=== PATIENT | male | born 1965 | race Caucasian/White ===

== ENCOUNTER 2018-08-24 22:16 | Observation (INO) | payer OTHER, SELFPAY ==
[2018-08-24 22:17] VITALS: BP 159/94; PULSE 73; RESP 16; TEMP 37.3; O2SAT 98; BMI 50.5
[2018-08-24 22:49] VITALS: BP 156/80; PULSE 91; RESP 18; TEMP 37.6; O2SAT 96
[2018-08-24 23:43] VITALS: PULSE 77; RESP 18; TEMP 37.4; O2SAT 95
[2018-08-25] VITALS (9 sets, daily range): BP systolic 116–159; BP diastolic 56–93; PULSE 71–89; RESP 14–20; TEMP 36.9–37.9; O2SAT 93–98; BMI 49.5
[2018-08-25 00:28] LABS: Absolute Lymphocyte Count 1.94 X10^3/ul (0.83-4.51); Absolute Neutrophil Count 5.2 X10^3/uL (2.0-7.7); Basophil# 0.02 X10^3/uL; Basophil% 0.2 % (0-1); Eosinophil# 0.18 X10^3/uL; Eosinophils% 2.1 % (0-5); Hematocrit 45.3 % (40-54); Hemoglobin 15.6 g/dl (13.0-16.5); Lymphocyte # 1.94 X10^3/ul (4.0); Lymphocyte % 23.1 % (19-41); Mean Corp Hgb Conc 34.4 g/gl (32-36); Mean Corpuscular Hgb 31.3 pg (27.0-32.0); Mean Platelet Vol. 10.4 fl (6.2-12.0); Monocyte# 1.03 X10^3/uL; Monocyte% 12.2 % (0-10); Neutrophil # 5.23 X10^3/uL (2.7-7.7); Neutrophil % 62.3 % (47-70); Platelet Count 222 K/mm3 (150-450); RBC Distribution Width CV 13.3 % (11.6-14.6); RBC Distribution Width SD 43.8 fl (35.1-43.9); Red Blood Count 4.98 M/mm3 (4.6-6.2); White Blood Count 8.4 K/mm3 (4.4-11.0)
[2018-08-25 00:31] LABS: POSITIVE COUNT NO; POSITIVE DIFFERENTIAL NO; POSITIVE MORPHOLOGY NO
[2018-08-25 00:41] LABS: Anion Gap 11 (5-15); BUN 11 mg/dL (7-18); BUN/Creat Ratio 11.4 RATIO (10-20); Calcium,Total 8.5 mg/dL (8.5-10.1); Chloride 102 mmol/L (98-107); Creatinine, Serum 0.96 mg/dL (0.70-1.30); EST Glomerular Filtration Rate 86 mL/min (>60); Est Glom Filt Rate - Afr Amer 104 mL/min (>60); Glucose 114 mg/dL (74-106); Potassium 3.3 mmol/L (3.5-5.1); Sodium Level 137 mmol/L (136-145)
--- NOTE | 2018-08-25 01:07 | ED.DCSUM_ITS ---
- ER Visit Summary Date of Service: 08/25/18 Chief Complaint: Fever and left leg redness History of Present Illness: The patient is a 53 M who presents with fever and left leg redness. He has been running a fever for 3 days. He developed increased pain redness and swelling of his left leg over the last couple of days. He was seen in urgent care. He had a venous duplex which was negative and had blood work. He was told his white blood cell count was normal. He was started on Bactrim. He was advised that if his symptoms worsen or he develop fever he should go to the emergency department. He developed a fever of greater than 101. No chest pain shortness of breath vomiting. Physical Examination: Afebrile vitals unremarkable Moist mucous membranes Heart regular rate and rhythm Lungs clear Patient has erythema and tenderness of the left leg he does have a psoriatic lesion over the dorsum of the left foot he does not have lymphangitic streaking the cellulitis extends from the top of the foot to the level of the knee leg is warm Test Results: CBC BMP unremarkable. Emergency Department Course and Treatment: Patient was given IV Unasyn. Given the fevers and the extent of his cellulitis I did feel he should be admitted for further IV antibiotics. Patient to be discussed with the hospitalist and admitted. Treatment Plan: [] Disposition: Admit Impression: Cellulitis left leg This note was generated with [employer] dictation software. It may contain incorrect words, spelling, and punctuation that were not noted in review of the chart prior to signing ED Disposition - Plan for ED Patient: Chief Complaint: Lower Extremity Injury Referrals: Kareem Redyd MD [Primary Care Provider] -
--- NOTE | 2018-08-25 01:08 | PCM.HP.STD ---
Problem List (1) Cellulitis Status: Acute History of Present Illness Date of Admission: 08/25/18 Chief Complaint: leg pain The patient is a 53 year old M with a significant history of hypertension; obesity; irregular heartbeat who presented with left leg pain that started about 2 days ago. His leg pain was initially mild and he attributed it to working at his basement. He also noticed that he was having chills and fever. His highest fever was 102. As the time progressed his leg pain became more painful and he correlated it with his chills and fever. He went to an urgent care where an ultrasound was done. The ultrasound showed no clot in his leg; and his white blood cells was okay. Patient was given Bactrim at the urgent care; and he was instructed that if he began to have 'streaks' or fever more than 100 he should come to the emergency department. So far he has taken 2 doses of the Bactrim. Patient reported that his home temperature has been consistently above 101 and he was surprised that at emergency department his temperature was below 100. His highest temperature at emergency department was 99.6. Associated with his symptoms is redness and swelling of his left leg. He reports that his left ankle is always bigger than his right ankle but his bilateral legs previously has been the same. Past Medical History Medical History: Medical History (Last Updated 08/25/18 @ 02:07 by Bobby Baker MD) Psoriasis L40.9 High blood pressure I10 Allergies codeine Allergy (Verified 08/24/18 22:23) Nausea/Vom/Diarrhea atorvastatin [From Lipitor] Adverse Reaction (Verified 08/24/18 22:23) Other Home Medications: Ambulatory Orders Medication Instructions Recorded Cholecalciferol (VIT D3) [Vitamin 1,000 unit PO DAILY 08/24/18 D] Ezetimibe [Zetia] 10 mg PO DAILY 08/24/18 Hydrochlorothiazide 12.5 mg PO DAILY 08/24/18 Metoprolol Succinate [Toprol Xl] 75 mg PO DAILY 08/24/18 Multivit-Mins/Iron/Folic/Lycop 1 each PO DAILY 08/24/18 [Centrum Ultra Men's Tablet] Smz/Tmp Ds [Bactrim Ds] 1 tablet PO BID 08/24/18 Calcipotriene 1 applicatio TP PRN PRN 08/25/18 Surgical History: appendectomy, - - Cyst from his back was removed. Lives: With Family Smoking Status: Never smoker Alcohol: None Drugs: None - *Family History Maternal Family History: Family History (Last Reviewed 08/25/18 @ 02:42 by Bobby Baker MD) Mother COPD (chronic obstructive pulmonary disease) Glaucoma Diabetes Father Myocardial infarction Review of Systems Constitutional: Reports: Chills, Fever. Denies: Weight Change - Intentional weight loss of about 15 pounds since 2 months ago. HEENT: Denies: Head Aches, Sinus Congestion, Sinus Drainage Cardiovascular: Denies: Chest Pain, Palpitations Respiratory: Denies: Cough, Shortness of breath at rest, Sputum production Gastrointestinal: Denies: Abdominal Pain, Nausea, Vomiting Genitourinary: Denies: Dysuria Musculoskeletal: Denies: Joint Pain, Joint Tenderness Skin: Reports: Skin Changes - Redness and swelling of left leg. Denies: Rash, Wounds Neurological: Denies: Numbness, Tingling, Focal weakness Psychiatric: Denies: Anxiety, Depression, Homicidal Ideations, Suicidal Ideations Hematologic/ Lymphatic: Denies: Easy Bruising, Easy Bleeding VTE Information - Inpt Only VTE Present on Admission: No VTE Mechan Device Prophylaxis: None VTE Pharm Prophylaxis ordered?: Yes Patient Problems: Active and Suspected Problems (Last Updated 08/25/18 @ 02:07 by Bobby Baker MD) Cellulitis (Acute) - Physical Exam General: Alert, Oriented x3, Cooperative HEENT: Atraumatic, PERRLA, EOMI, Normocephalic Neck: Supple, No JVD, Negative Carotid Bruits Lungs: Clear to auscultation, Normal air movement Cardiovascular: Regular rate, No murmurs Abdomen: Bowel Sounds Present, Soft, Non Tender Extremities: Capillary Refill Less than 3 Seconds, Edema - Left leg, Tenderness - Left leg Skin: No rashes, No breakdown, - - Bittinger colored lesion on lower left leg proximal to ankle. Musculoskeletal: No Muscle Wasting Neurological: Neuro grossly intact Psych/Mental Status: Normal Affect, Appropriate Vital Signs Temp Pulse Resp BP Pulse Ox 99.4 F H 74 17 156/80 H 96 08/25/18 00:00 08/25/18 00:00 08/25/18 00:00 08/24/18 22:49 08/25/18 00:00 Oxygen Delivery Method Room Air Weight: 151 kg Body Mass Index (BMI) 50.5 Laboratory Tests Past 24 Hrs 08/25/18 08/25/18 00:15 00:15 WBC 8.4 RBC 4.98 Hgb 15.6 Hct 45.3 MCV 91.0 MCH 31.3 MCHC 34.4 RDW 13.3 RDW Differential 43.8 Plt Count 222 MPV 10.4 Immature Gran % (Auto) 0.100 Neut % (Auto) 62.3 Lymph % (Auto) 23.1 Luce % (Auto) 12.2 H Eos % (Auto) 2.1 Baso % (Auto) 0.2 Absolute Neuts (auto) 5.2 Absolute Lymphs (auto) 1.94 Total Counted Not Reportable Sodium 137 Potassium 3.3 L Chloride 102 Carbon Dioxide 24.0 Anion Gap 11 BUN 11 Creatinine 0.96 Estim Creat Clear Calc 85.10 Est GFR (MDRD) Af Amer 104 Est GFR (MDRD) Non-Af 86 BUN/Creatinine Ratio 11.4 Glucose 114 H Calcium 8.5 Assessment/Plan All Active Problems (Last Updated 08/25/18 @ 02:07 by Bobby Baker MD) Cellulitis (Acute) The patient is a 53 year old M with a significant history of hypertension; obesity; irregular heartbeat who presented with left leg pain; swelling, redness, fever and chills consistent with cellulitis of his left leg with likely port of entry as area of psoriasis proximal to his left leg. Cellulitis of the left leg. His prodromal symptoms of chills and fever is consistent with likely Streptococcus infection. Patient received Unasyn at emergency department which is appropriate.. We will start patient on cefazolin every 8 hours to minimize multiple dosing. Trend CBC and BMP. Patient report that when he is not moving he does not have any pain. Tylenol as needed ordered. Hypertension On admission his blood pressure was not within goal. Continue hydrochlorothiazide and metoprolol. PRN hydralazine ordered. Trend blood pressures. Hyperlipidemia Zetia continued. Hypokalemia On admission his potassium was 3.3. Replaced Trend BMP. DVT prophylaxis Subcutaneous Lovenox Code Visit OBSV E&M: 20202 Initial observation care L3
[2018-08-25 05:51] LABS: Hematocrit 44.1 % (40-54); Hemoglobin 15.1 g/dl (13.0-16.5); Mean Corp Hgb Conc 34.2 g/gl (32-36); Mean Corpuscular Hgb 31.5 pg (27.0-32.0); Mean Corpuscular Volume 92.1 fL (80-94); Mean Platelet Vol. 10.5 fl (6.2-12.0); Platelet Count 211 K/mm3 (150-450); RBC Distribution Width CV 13.3 % (11.6-14.6); RBC Distribution Width SD 43.8 fl (35.1-43.9); Red Blood Count 4.79 M/mm3 (4.6-6.2); White Blood Count 6.3 K/mm3 (4.4-11.0)
[2018-08-25 05:56] LABS: Scan Indicated on CBC? Y/N NO
[2018-08-25 06:10] LABS: Anion Gap 11 (5-15); BUN 10 mg/dL (7-18); BUN/Creat Ratio 10.4 RATIO (10-20); Calcium,Total 8.3 mg/dL (8.5-10.1); Chloride 103 mmol/L (98-107); Creatinine, Serum 0.96 mg/dL (0.70-1.30); EST Glomerular Filtration Rate 86 mL/min (>60); Est Glom Filt Rate - Afr Amer 104 mL/min (>60); Glucose 122 mg/dL (74-106); Potassium 3.2 mmol/L (3.5-5.1); Sodium Level 137 mmol/L (136-145)
[2018-08-25] MEDS: Cefazolin 1 GM/50 ML BAG IV (06:22)
[2018-08-25 07:01] LABS: Bedside Glucose 125 mg/dL (70-110)
--- NOTE | 2018-08-25 10:30 | CASEMGMT ---
RN JENNIFER Face to Face with patient for initial transition planning/care coordination assessment. RN CM introduced self and role at [facility]. Patient lying in bed, alert and oriented. Patient willing to participate in assessment and is able to answer all questions appropriately. Care providers, pharmacy, and demographics verified. Patient wishes to discharge home, denies need for home health at this time. Patient states he has no further needs or concerns at this time. CM to follow for discharge planning needs that may arise. PCP: Maureen Specialists: None Preferred Pharmacy: [facility] Insurance: [facility] Prescription Benefit: [facility] Living Will/HPOA: None LNOK: Living Arrangements: Patient lives with in 2 story home. Patient independent and able to navigate stairs. Transportation: Self/ DME/HHC: Patient has cane and walker at home but does not utilize. Disposition Plan: Patient to discharge home with family support and follow-up plans in place. Savannah SMILEY, RN, CM
[2018-08-25 11:30] LABS: Bedside Glucose 124 mg/dL (70-110)
--- NOTE | 2018-08-25 12:52 | PN_ITS ---
<Zohreh Razo - Last Filed: 08/25/18 12:52> Patient Problems: Active and Suspected Problems (Last Updated 08/25/18 @ 02:07 by Bobby Baker MD) Cellulitis (Acute) Subjective: Patient seen and examined. Denies fever, chills. Reports left lower extremity pain with movement, otherwise denies significant pain. - Physical Exam General: Alert, Oriented x3, Cooperative HEENT: Atraumatic, PERRLA, EOMI, Normocephalic Neck: Supple, No JVD, Negative Carotid Bruits Lungs: Clear to auscultation, Normal air movement Cardiovascular: Regular rate, Regular Rhythm, Normal S1, Normal S2, No murmurs Abdomen: Bowel Sounds Present, Soft, Non Tender Extremities: No clubbing, No cyanosis, Edema - Left lower extremity Skin: No rashes, No breakdown, - - Left foot psoriatic rash, left lower extremity erythema extending from ankle to knee. Musculoskeletal: No Tenderness to Palpation of Joints or Extremities Neurological: Cranial nerves II-XII grossly intact, Neuro grossly intact Psych/Mental Status: Normal Affect, Appropriate Vital Signs Temp Pulse Resp BP Pulse Ox 98.5 F 71 18 116/56 L 96 08/25/18 07:42 08/25/18 07:42 08/25/18 07:42 08/25/18 07:42 08/25/18 07:42 Oxygen Delivery Method Room Air Weight: 325 lb 9.964 oz Body Mass Index (BMI) 49.5 Intake and Output for Last 24 Hours 08/23/18 08/24/18 08/25/18 23:59 23:59 23:59 Intake Total 600 / 600 Balance 600 / 600 Laboratory Tests Past 24 Hrs 08/25/18 08/25/18 08/25/18 00:15 00:15 05:10 WBC 8.4 6.3 RBC 4.98 4.79 Hgb 15.6 15.1 Hct 45.3 44.1 MCV 91.0 92.1 MCH 31.3 31.5 MCHC 34.4 34.2 RDW 13.3 13.3 RDW Differential 43.8 43.8 Plt Count 222 211 MPV 10.4 10.5 Immature Gran % (Auto) 0.100 Neut % (Auto) 62.3 Lymph % (Auto) 23.1 [place] % (Auto) 12.2 H Eos % (Auto) 2.1 Baso % (Auto) 0.2 Absolute Neuts (auto) 5.2 Absolute Lymphs (auto) 1.94 Total Counted Not Reportable Sodium 137 Potassium 3.3 L Chloride 102 Carbon Dioxide 24.0 Anion Gap 11 BUN 11 Creatinine 0.96 Estim Creat Clear Calc 85.10 Est GFR (MDRD) Af Amer 104 Est GFR (MDRD) Non-Af 86 BUN/Creatinine Ratio 11.4 Glucose 114 H Calcium 8.5 08/25/18 05:10 WBC RBC Hgb Hct MCV MCH MCHC RDW RDW Differential Plt Count MPV Immature Gran % (Auto) Neut % (Auto) Lymph % (Auto) [place] % (Auto) Eos % (Auto) Baso % (Auto) Absolute Neuts (auto) Absolute Lymphs (auto) Total Counted Sodium 137 Potassium 3.2 L Chloride 103 Carbon Dioxide 23.0 Anion Gap 11 BUN 10 Creatinine 0.96 Estim Creat Clear Calc 85.10 Est GFR (MDRD) Af Amer 104 Est GFR (MDRD) Non-Af 86 BUN/Creatinine Ratio 10.4 Glucose 122 H Calcium 8.3 L POC Glucose 08/25/18 08/25/18 11:27 06:32 POC Glucose 124 H 125 H Medical Necessity - Tobacco Use Smoking Status: Never smoker Assessment/Plan All Active Problems (Last Updated 08/25/18 @ 02:07 by Bobby Baker MD) Cellulitis (Acute) 1. Left lower extremity cellulitis-patient prescribed Bactrim as outpatient which he took 2 doses before presenting to ER due to fever. Continue IV cefazolin. Elevate left lower extremity. PRN pain regimen. Tylenol as needed for fever. 2. Mild hypokalemia-replaced per protocol. Suspect secondary to HCTZ regimen. Trend BMP. 3. Psoriasis-recommend outpatient follow-up. 4. Elevated glucose-check hemoglobin A1c. 5. Hypertension-stable, continue home HCTZ, metoprolol regimen. PRN hydralazine for systolic blood pressure greater than 160. 6. Hyperlipidemia-continue Zetia. 7. Morbid obesity-BMI 49. Encouraged diet lifestyle modifications. DVT prophylaxis-Lovenox This patient was seen by VAN López under the supervision of Dr. Akhtar. <Ofelia Akhtar - Last Filed: 08/25/18 14:22> - Physical Exam Vital Signs Temp Pulse Resp BP Pulse Ox 98.4 F 80 18 120/60 97 08/25/18 13:27 08/25/18 13:27 08/25/18 13:27 08/25/18 13:27 08/25/18 13:27 Oxygen Delivery Method Room Air Weight: 325 lb 9.964 oz Body Mass Index (BMI) 49.5 Intake and Output for Last 24 Hours 08/23/18 08/24/18 08/25/18 23:59 23:59 23:59 Intake Total 1090 / 1090 Balance 1090 / 1090 Laboratory Tests Past 24 Hrs 08/25/18 08/25/18 08/25/18 00:15 00:15 05:10 WBC 8.4 6.3 RBC 4.98 4.79 Hgb 15.6 15.1 Hct 45.3 44.1 MCV 91.0 92.1 MCH 31.3 31.5 MCHC 34.4 34.2 RDW 13.3 13.3 RDW Differential 43.8 43.8 Plt Count 222 211 MPV 10.4 10.5 Immature Gran % (Auto) 0.100 Neut % (Auto) 62.3 Lymph % (Auto) 23.1 [place] % (Auto) 12.2 H Eos % (Auto) 2.1 Baso % (Auto) 0.2 Absolute Neuts (auto) 5.2 Absolute Lymphs (auto) 1.94 Total Counted Not Reportable Sodium 137 Potassium 3.3 L Chloride 102 Carbon Dioxide 24.0 Anion Gap 11 BUN 11 Creatinine 0.96 Estim Creat Clear Calc 85.10 Est GFR (MDRD) Af Amer 104 Est GFR (MDRD) Non-Af 86 BUN/Creatinine Ratio 11.4 Glucose 114 H Hemoglobin A1c Calcium 8.5 08/25/18 08/25/18 05:10 05:10 WBC RBC Hgb Hct MCV MCH MCHC RDW RDW Differential Plt Count MPV Immature Gran % (Auto) Neut % (Auto) Lymph % (Auto) [place] % (Auto) Eos % (Auto) Baso % (Auto) Absolute Neuts (auto) Absolute Lymphs (auto) Total Counted Sodium 137 Potassium 3.2 L Chloride 103 Carbon Dioxide 23.0 Anion Gap 11 BUN 10 Creatinine 0.96 Estim Creat Clear Calc 85.10 Est GFR (MDRD) Af Amer 104 Est GFR (MDRD) Non-Af 86 BUN/Creatinine Ratio 10.4 Glucose 122 H Hemoglobin A1c 6.6 H Calcium 8.3 L POC Glucose 08/25/18 08/25/18 11:27 06:32 POC Glucose 124 H 125 H Assessment/Plan Patient seen by Zohreh Razo NP-C under my supervision. Patient seen and examined. He was admitted with a complaint of left lower extremity redness, swelling and fever. He failed outpatient therapy for cellulitis with Bactrim. He denies any fever or chills though still complains of swelling and redness in his left lower extremity. 12 point review of systems otherwise negative. Labs and vitals reviewed. Examination Vitals Vital Signs Height 5 ft 8 in Weight: 325 lb 9.964 oz Weight in Pounds 325.6 lbs Pulse Ox 97 Temperature 98.4 F Pulse Rate 80 Respiratory Rate 18 Blood Pressure 120/60 Blood Pressure Position Semi-Fowlers General: Alert, Oriented x3, Cooperative HEENT: Atraumatic, PERRLA, EOMI, Normocephalic Neck: Supple, No JVD, Negative Carotid Bruits Lungs: Clear to auscultation, Normal air movement Cardiovascular: Regular rate, Regular Rhythm, Normal S1, Normal S2, No murmurs Abdomen: Bowel Sounds Present, Soft, Non Tender Extremities: No clubbing, No cyanosis, Edema - Left lower extremity Skin: No rashes, No breakdown, erythematous rash over LLE, with focal area of erythema and differential warmth over villalba. psoriatic rash over dorsum of left foot. Musculoskeletal: No Tenderness to Palpation of Joints or Extremities Neurological: Cranial nerves II-XII grossly intact, Neuro grossly intact Psych/Mental Status: Normal Affect, Appropriate Plan is to continue managing for LLE cellulitis. Continue IV cefazolin. Check A1C. Has hypokalemia and potassium will be replaced and monitored. I have reviewed the rest of Zohreh Razo NP C's note, assessment and plan and agree with it. Code Visit OBSV E&M: 42527 Subsequent observation care L3
[2018-08-25] MEDS: Cefazolin 2 GM in 0.9% Normal Saline 100 ML IV ×2 (13:16→22:58)
[2018-08-25 13:45] LABS: Hemoglobin A1c 6.6 % (4.2-6.3)
[2018-08-25] MEDS: Acetaminophen 325 MG Tablet 650 MG PO (15:33)
[2018-08-25] MEDS: 0.9% NaCl Peripheral Flush Adult/Peds IV (15:33)
[2018-08-25 16:16] LABS: Bedside Glucose 122 mg/dL (70-110)
[2018-08-25] MEDS: Metoprolol(XL)Succ 50 MG Tablet 75 MG PO (22:58)
[2018-08-25] MEDS: hydroCHLOROthiazide 12.5mg 12.5 MG PO (22:59)
[2018-08-25] MEDS: Enoxaparin 40 MG/0.4 ML Syringe SC (22:59)
[2018-08-25] MEDS: Multivitamins,Ther W-Minerals Tablet 1 TABLET PO (22:59)
[2018-08-25] MEDS: Ezetimibe 10 MG Tablet PO (23:00)
[2018-08-25 23:15] LABS: Bedside Glucose 88 mg/dL (70-110)
[2018-08-26 03:55] VITALS: BP 130/80; PULSE 58; RESP 14; TEMP 36.9; O2SAT 96
[2018-08-26] MEDS: Cefazolin 2 GM in 0.9% Normal Saline 100 ML IV (05:55)
[2018-08-26 06:10] LABS: Bedside Glucose 111 mg/dL (70-110)
[2018-08-26 06:47] LABS: Anion Gap 11 (5-15); BUN 8 mg/dL (7-18); BUN/Creat Ratio 11.1 RATIO (10-20); Calcium,Total 8.5 mg/dL (8.5-10.1); Chloride 104 mmol/L (98-107); Creatinine, Serum 0.72 mg/dL (0.70-1.30); EST Glomerular Filtration Rate 121 mL/min (>60); Est Glom Filt Rate - Afr Amer 147 mL/min (>60); Estimated Creatinine Clearance 113.47 ml/min; Glucose 115 mg/dL (74-106); Potassium 3.2 mmol/L (3.5-5.1); Sodium Level 138 mmol/L (136-145)
[2018-08-26 07:22] VITALS: PULSE 60
[2018-08-26 10:42] VITALS: BP 111/61; PULSE 57; RESP 18; TEMP 36.7; O2SAT 97
--- NOTE | 2018-08-26 11:05 | DCINST_ITS ---
- Discharge Diagnoses Current Active Problems: Current Active and Chronic Problems (Last Updated 08/25/18 @ 02:07 by Bobby Baker MD) Cellulitis (Acute) You will use the following diet at home:: Calorie/Carbohydrate Controlled (specify 1200, 1400, etc) Discharge Activity: Return to Normal Activity Call your doctor if you observe: Fever of 101 or Higher, - - Worsing redness left lower extremity. Allergies/Adverse Reactions: Allergies codeine Allergy (Verified 08/25/18 02:20) Nausea/vomiting atorvastatin [From Lipitor] Adverse Reaction (Verified 08/25/18 02:20) stiff joints Medications to take at Discharge Cholecalciferol (VIT D3) [Vitamin D3] 1,000 unit PO DAILY 08/24/18 Ezetimibe [Zetia] 10 mg PO DAILY 08/24/18 Hydrochlorothiazide 12.5 mg PO DAILY 08/24/18 Metoprolol Succinate [Toprol Xl] 75 mg PO DAILY 08/24/18 Multivit-Mins/Iron/Folic/Lycop [Centrum Ultra Men's Tablet] 1 each PO DAILY 08/24/18 Calcipotriene 1 applicatio TP PRN PRN 08/25/18 Cephalexin [Keflex] 500 mg PO Q8 #21 capsule 08/26/18 The following prescriptions were given: Cephalexin [Keflex] 500 mg PO Q8 #21 capsule Primary Care Physician: Kareem Reddy MD [Primary Care Provider] - Please follow up with your Primary Care Physician in: 1 Week Test Results: Test results from this visit will be discussed in further detail at your follow- up appointment, if applicable. Proposed Discharge Date: 08/26/18
--- NOTE | 2018-08-26 11:19 | DS.PCM_ITS ---
<Zohreh Razo - Last Filed: 08/26/18 11:19> Discharge Date and Diagnosis Date of Admission: 08/25/18 Date of Discharge: 08/26/18 - Primary Discharge Diagnosis Active and Suspected Problems (Last Updated 08/25/18 @ 02:07 by Bobby Baker MD) 1. Left lower extremity cellulitis 2. Mild hypokalemia 3. New onset type 2 diabetes mellitus 4. Psoriasis 5. Hypertension 6. Hyperlipidemia 7. Morbid obesity Hospital Course and Treatment Operations: None Procedures: None Summary of Care Provided: The patient is a 53 year old M admitted 08/25/2018 due to left leg pain and worsening cellulitis. 1. Left lower extremity cellulitis-patient prescribed Bactrim as outpatient which he took 2 doses before presenting to ER due to fever. Patient received IV cefazolin with improvement and left lower extremity erythema, warmth. Fever resolved. Patient will be discharged on Keflex 500 mg p.o. every 8 hr for 7 days. Follow-up with primary care physician in 1 week. 2. Mild hypokalemia-replaced per protocol. Suspect secondary to HCTZ regimen. 3. Psoriasis-recommend outpatient follow-up. 4. New onset type 2 diabetes mellitus-hemoglobin A1c 6.6%. Recommend carb controlled diet. Further monitoring by primary care physician, may require addition of oral agent if not able to reduce HA1c by diet/exercise. 5. Hypertension-stable, continue home HCTZ, metoprolol regimen. 6. Hyperlipidemia-continue Zetia. 7. Morbid obesity-BMI 49. Encouraged diet lifestyle modifications. General: Alert, Oriented x3, Cooperative HEENT: Atraumatic, PERRLA, EOMI, Normocephalic Neck: Supple, No JVD, Negative Carotid Bruits Lungs: Clear to auscultation, Normal air movement Cardiovascular: Regular rate, Regular Rhythm, Normal S1, Normal S2, No murmurs Abdomen: Bowel Sounds Present, Soft, Non Tender Extremities: No clubbing, No cyanosis, Edema - Left lower extremity Skin: No rashes, No breakdown, - - Left foot psoriatic rash, left lower extremity erythema extending from ankle to knee. Musculoskeletal: No Tenderness to Palpation of Joints or Extremities Neurological: Cranial nerves II-XII grossly intact, Neuro grossly intact Psych/Mental Status: Normal Affect, Appropriate Patient seen and examined prior to discharge. Physical assessment as noted abo ve. Patient is stable for discharge with follow up recommendations as noted above. This patient was seen by VAN López under the supervision of Dr. Akhtar. - Physical Exam Vital Signs Temp Pulse Resp BP Pulse Ox 98.0 F 57 L 18 111/61 97 08/26/18 10:42 08/26/18 10:42 08/26/18 10:42 08/26/18 10:42 08/26/18 10:42 Oxygen Delivery Method Room Air Weight: 325 lb 9.964 oz Body Mass Index (BMI) 49.5 Intake and Output for Last 24 Hours 08/24/18 08/25/18 08/26/18 23:59 23:59 23:59 Intake Total 1090 / 1090 1118 / 1118 Balance 1090 / 1090 1118 / 1118 Laboratory Tests Past 24 Hrs 08/25/18 08/26/18 05:10 05:20 Sodium 138 Potassium 3.2 L Chloride 104 Carbon Dioxide 23.0 Anion Gap 11 BUN 8 Creatinine 0.72 Estim Creat Clear Calc 113.47 Est GFR (MDRD) Af Amer 147 Est GFR (MDRD) Non-Af 121 BUN/Creatinine Ratio 11.1 Glucose 115 H Hemoglobin A1c 6.6 H Calcium 8.5 POC Glucose 08/26/18 08/25/18 08/25/18 05:54 23:11 16:13 POC Glucose 111 H 88 122 H 08/25/18 11:27 POC Glucose 124 H Discharge Diet: Carb Control Diet Discharge Activity: Return to Normal Activity Call your doctor if you observe: Fever of 101 or Higher, - - Worsing redness left lower extremity. Home Medications: Medications to take at Discharge Cholecalciferol (VIT D3) [Vitamin D3] 1,000 unit PO DAILY 08/24/18 Ezetimibe [Zetia] 10 mg PO DAILY 08/24/18 Hydrochlorothiazide 12.5 mg PO DAILY 08/24/18 Metoprolol Succinate [Toprol Xl] 75 mg PO DAILY 08/24/18 Multivit-Mins/Iron/Folic/Lycop [Centrum Ultra Men's Tablet] 1 each PO DAILY 08/24/18 Calcipotriene 1 applicatio TP PRN PRN 08/25/18 Cephalexin [Keflex] 500 mg PO Q8 #21 capsule 08/26/18 Following Prescrptions Were Given to Patient: Cephalexin [Keflex] 500 mg PO Q8 #21 capsule Primary Care Physician: Kareem Reddy MD [Primary Care Provider] - Please follow up with your Primary Care Physician in: 1 Week Disposition: Home Minutes spent on discharge:: 35 Patient Condition:: Stable Medical Necessity - Tobacco Use Smoking Status: Never smoker Meaningful Use Info Meaningful Use Diagnoses (Choose all that apply): None applicable <Ofelia Akhtar - Last Filed: 08/26/18 12:52> Hospital Course and Treatment Summary of Care Provided: Patient seen by Zohreh ARAUJO under my supervision. The patient is a 53 year old M who was made with a complaint of left lower extremity pain, redness and swelling. Patient has psoriasis and had a rash on his left lower extremity which he has been scratching. He was seen at an urgent care center and given p.o. Bactrim but failed outpatient therapy and so came into the hospital he started having fever and chills. He was admitted and managed for cellulitis of the left lower extremity. According to patient, duplex was done at the urgent care center which was negative for DVT. He was started on IV cefazolin. Redness and swelling subsequently improved significantly. He also had mild hypokalemia which resolved. Patient was discharged home on 08/26/2018 with a prescription for p.o. Keflex. He is to follow-up with his primary care doctor. Patient seen and examined prior to discharge. He had no complaints and felt well. He denied any fever chills, any cough or chest pain, shortness of breath, abdominal pain, any diarrhea vomiting. Review of systems otherwise negative. Labs and vitals reviewed. Occasions reviewed and reconciled. o/e: Vital Signs Height 5 ft 8 in Weight: 325 lb 9.964 oz Weight in Pounds 325.6 lbs Pulse Ox 97 Temperature 98.0 F Pulse Rate 57 Respiratory Rate 18 Blood Pressure 111/61 Blood Pressure Position Semi-Fowlers General: Alert, Oriented x3, Cooperative HEENT: Atraumatic, PERRLA, EOMI, Normocephalic Neck: Supple, No JVD, Negative Carotid Bruits Lungs: Clear to auscultation, Normal air movement Cardiovascular: Regular rate, Regular Rhythm, Normal S1, Normal S2, No murmurs Abdomen: Bowel Sounds Present, Soft, Non Tender Extremities: No clubbing, No cyanosis, Edema - Left lower extremity Skin: No rashes, No breakdown, - - Left foot psoriatic rash, redness, swelling and tenderness of LLE have improved significantly. l extending from ankle to knee. Musculoskeletal: No Tenderness to Palpation of Joints or Extremities Neurological: Cranial nerves II-XII grossly intact, Neuro grossly intact Psych/Mental Status: Normal Affect, Appropriate [] Plan as stated above. He was also diagnosed with new onset diabetes mellitus type 2 based on A1c of 6.6. He is to follow-up with his PCP for cessation of oral medications and was advised to follow a calorie controlled diet. I have reviewed the rest of Zohreh Razo NP C's note and I agree with above assessment management and plan. - Physical Exam Vital Signs Temp Pulse Resp BP Pulse Ox 98.0 F 57 L 18 111/61 97 08/26/18 10:42 08/26/18 10:42 08/26/18 10:42 08/26/18 10:42 08/26/18 10:42 Oxygen Delivery Method Room Air Weight: 325 lb 9.964 oz Body Mass Index (BMI) 49.5 Intake and Output for Last 24 Hours 08/24/18 08/25/18 08/26/18 23:59 23:59 23:59 Intake Total 1090 / 1090 1118 / 1118 Balance 1090 / 1090 1118 / 1118 Microbiology Past 72 Hours 08/26/18 09:20 C. difficile DNA Amplification - Final Stool Laboratory Tests Past 24 Hrs 08/25/18 08/26/18 05:10 05:20 Sodium 138 Potassium 3.2 L Chloride 104 Carbon Dioxide 23.0 Anion Gap 11 BUN 8 Creatinine 0.72 Estim Creat Clear Calc 113.47 Est GFR (MDRD) Af Amer 147 Est GFR (MDRD) Non-Af 121 BUN/Creatinine Ratio 11.1 Glucose 115 H Hemoglobin A1c 6.6 H Calcium 8.5 POC Glucose 08/26/18 08/26/18 08/25/18 11:35 05:54 23:11 POC Glucose 97 111 H 88 08/25/18 16:13 POC Glucose 122 H Code Visit Inpatient E&M: 03646 Disch Hosp
[2018-08-26 11:45] LABS: Bedside Glucose 97 mg/dL (70-110)
== END 2018-08-26 13:29 | disposition home or self-care (01) ==
LOC: ED 08-25 00:10 → MS3 08-25 01:20
PROVIDERS: Nurse Practitioner Family; Admitting Provider Hospitalist; Emergency Provider Emergency Medicine; Family Provider Family Medicine; PCP Family Medicine; Visit Provider Student in an Organized Health Care Education/Training Program
DX: L03.116 Cellulitis of left lower limb (principal); L40.9 Psoriasis, unspecified; I10 Essential (primary) hypertension; Z79.899 Other long term (current) drug therapy; Z68.42 Body mass index [BMI] 45.0-49.9, adult; Z71.3 Dietary counseling and surveillance; E87.6 Hypokalemia; R73.9 Hyperglycemia, unspecified; E66.01 Morbid (severe) obesity due to excess calories; E78.5 Hyperlipidemia, unspecified; Z23 Encounter for immunization
CPT/HCPCS: 36415; 80048; 82962; 83036; 85025; 85027; 87493; 96365; 96366; 96367; 96372; 97802; 99218; 99282; J7050; 90686; A4216; G0378; J0295

== ENCOUNTER 2018-09-22 14:56 | Outpatient (RCR) | payer OTHER, SELFPAY ==
[2018-08-25 02:14] VITALS: BMI 49.5
== END 2018-09-22 23:59 ==
LOC: DC 14:56
PROVIDERS: Family Provider Family Medicine; PCP Family Medicine; Visit Provider Family Medicine
DX: E66.01 Morbid (severe) obesity due to excess calories (principal); Z68.42 Body mass index [BMI] 45.0-49.9, adult; E11.9 Type 2 diabetes mellitus without complications; Z71.3 Dietary counseling and surveillance
CPT/HCPCS: G0108

== ENCOUNTER 2018-09-26 15:37 | Outpatient (RCR) | payer OTHER, SELFPAY ==
[2018-08-25 02:14] VITALS: BMI 49.5
== END 2018-10-20 23:59 ==
LOC: DC 15:37
PROVIDERS: Family Provider Family Medicine; PCP Family Medicine; Visit Provider Family Medicine
DX: E11.9 Type 2 diabetes mellitus without complications (principal)
CPT/HCPCS: 97802

== ENCOUNTER 2018-11-01 13:00 | Outpatient (RCR) | payer OTHER, SELFPAY ==
[2018-08-25 02:14] VITALS: BMI 49.5
== END 2018-11-20 23:59 ==
LOC: DC 13:00
PROVIDERS: Family Provider Family Medicine; PCP Family Medicine; Visit Provider Family Medicine
DX: E11.9 Type 2 diabetes mellitus without complications (principal); E66.01 Morbid (severe) obesity due to excess calories; Z68.42 Body mass index [BMI] 45.0-49.9, adult; Z71.3 Dietary counseling and surveillance
CPT/HCPCS: 97803

== ENCOUNTER 2018-11-28 13:00 | Outpatient (RCR) | payer OTHER, SELFPAY ==
[2018-08-25 02:14] VITALS: BMI 49.5
== END 2018-12-20 23:59 ==
LOC: DC 13:00
PROVIDERS: Family Provider Family Medicine; PCP Family Medicine; Visit Provider Family Medicine
DX: E11.9 Type 2 diabetes mellitus without complications (principal); E66.01 Morbid (severe) obesity due to excess calories; Z68.42 Body mass index [BMI] 45.0-49.9, adult; Z71.3 Dietary counseling and surveillance
CPT/HCPCS: 97803

== ENCOUNTER 2019-01-30 13:44 | Outpatient (RCR) | payer OTHER, SELFPAY ==
[2018-08-25 02:14] VITALS: BMI 49.5
== END 2019-01-30 23:59 | disposition home or self-care (01) ==
LOC: DC 13:44
PROVIDERS: Family Provider Family Medicine; PCP Family Medicine; Visit Provider Family Medicine
DX: E11.9 Type 2 diabetes mellitus without complications (principal); E66.01 Morbid (severe) obesity due to excess calories; Z68.42 Body mass index [BMI] 45.0-49.9, adult; Z71.3 Dietary counseling and surveillance
CPT/HCPCS: 97803

== ENCOUNTER 2020-11-07 10:02 | Outpatient (RCR) | payer OTHER, SELFPAY ==
[2018-08-25 02:14] VITALS: BMI 49.5
[2020-11-07] MEDS: COVID-19 VACC, MRNA(PFIZER)/PF 30 MCG/0.3 ML SYRINGE IM (10:22)
[2020-11-28] MEDS: COVID-19 VACC, MRNA(PFIZER)/PF 30 MCG/0.3 ML SYRINGE IM (10:20)
== END 2020-11-07 23:59 ==
LOC: IMMUN 10:02
PROVIDERS: PCP Family Medicine; Visit Provider Family Medicine
DX: Z23 Encounter for immunization (principal)
CPT/HCPCS: 0001A; 0002A; 91300

== ENCOUNTER 2020-12-19 17:48 | Emergency (ER) | payer OTHER, SELFPAY ==
[2018-08-25 02:14] VITALS: BMI 49.5
[2020-12-19 17:49] VITALS: BP 142/74; PULSE 68; RESP 18; TEMP 36; O2SAT 99; BMI 34.4
--- NOTE | 2020-12-19 18:27 | EKG12_ITS ---
Test Reason : CP Blood Pressure : / mmHG Vent. Rate : 061 BPM Atrial Rate : 061 BPM P-R Int : 142 ms QRS Dur : 084 ms QT Int : 390 ms P-R-T Axes : 047 055 060 degrees QTc Int : 392 ms Normal sinus rhythm Normal ECG Confirmed by JOCELYN RAMOS, JESUS ([id number]), editor in chief newspaper OSMANY LEON ([id number]) on 12/23/2020 12:21:14 PM Referred By: COLLEEN Confirmed By:JESUS BANKS MD
--- NOTE | 2020-12-19 18:27 | ED.VIS.CHEST ---
HPI History of Present Illness Chief Complaint: Chest Pain Informant: patient Onset/Context/Timing Onset: Days Activity at onset: gradual Timing: Intermittent Quality: Positive for Heaviness and Tightness Location: Substernal and Left Parasternal Current Severity: Mild Maximum Severity: Moderate Worsened By: Exertion Relieved By: Nothing Associated Symptoms: Positive for Dyspnea Narrative The patient presents with intermittent chest pain. He states that for the past few days, he has had intermittent tightness across his left chest. He states he cannot really think of anything makes it worse. However, when he came here to the hospital and had to walk up the incline, he states that the heaviness got worse and he felt mildly short of breath. By the time he was able to rest, the pain went away. He has no history of coronary vascular disease. He does have a prior history of arrhythmia which she takes Toprol, and was a diabetic, but is now diet controlled. [facility] Medical History Diabetes High blood pressure Hyperlipemia Irregular heart beat Psoriasis Home Medications aspirin 81 mg PO DAILY 12/19/20 [History Last Taken Unknown] Allergy/AdvReac Type Severity Reaction Status Date / Time codeine Allergy Nausea/vomi Verified 12/19/20 17:52 ting atorvastatin [From Lipitor] AdvReac stiff Verified 12/19/20 17:52 joints Family History Mother COPD (chronic obstructive pulmonary disease) Glaucoma Diabetes Father Myocardial infarction Social History Smoking Status: Never smoker ROS ROS ED Constitutional Constitutional ED: Denies chills or fever(s) Eyes Eyes: Denies blurry vision or change in vision ENT ENT ED: Denies ear pain or sore throat Cardiovascular Cardiovascular: Reports chest pain Respiratory/Chest Respiratory/Chest: Denies cough, dyspnea or dyspnea on exertion Gastrointestinal Gastrointestinal: Denies abdominal pain, nausea or vomiting Genitourinary Genitourinary ED: Denies dysuria or urinary frequency Musculoskeletal Musculoskeletal: Denies arthralgias or myalgias Integumentary Denies rash Neurologic Neurologic: Denies headache(s) or paresthesias Psychiatric Psychiatric: Denies anxiety or depression Endocrine Endocrinology: Denies polydipsia or polyuria Allergic/Immunologic Allergic/Immunologic ED: Denies urticaria EXAM Physical Exam Const Vital Signs: 12/19/20 17:49 12/19/20 18:36 12/19/20 18:37 Temperature 96.8 F L Temperature Source Temporal Pulse Rate 68 Respiratory Rate 18 Respiratory Effort Normal Non-Labored Blood Pressure 142/74 H Blood Pressure Mean 96 Pulse Ox 99 99 Oxygen Delivery Method Room Air Room Air 12/19/20 18:48 12/19/20 19:00 Temperature Temperature Source Pulse Rate 66 69 Respiratory Rate 14 14 Respiratory Effort Blood Pressure 128/82 H 141/81 H Blood Pressure Mean 97 101 Pulse Ox 99 99 Oxygen Delivery Method Room Air Room Air Positive well nourished and well developed General Appearance ED: well developed HEENT normocephalic and atraumatic; Negative for tenderness Eyes PERRL and EOMs intact bilaterally Neck no lymphadenopathy, supple and no JVD Chest Wall inspection of chest normal and palpation of chest normal Resp normal respiratory effort and clear to auscultation bilaterally Effort and Inspection: Negative for respiratory distress Cardio regular rate and regular rhythm GI normal to inspection, nondistended, normoactive bowel sounds, soft to palpation and non-tender Back/Spine no CVA tenderness and no thoracic nor lumbar tenderness Extremity normal to inspection General Extremety ED: Negative for edema or tenderness General Extremity: Negative for edema Neuro oriented x3 and CN's II-XII intact bilaterally Sensorium / Orientation: awake, alert, oriented to person and oriented to place Psych mental status grossly normal Skin no rashes or lesions noted MDM MDM MDM Narrative Medical decision making narrative: The patient presents with chest tightness. It is worse with exertion. His story is concerning for angina. Metabolic work-up was pursued. Work-up is essentially unremarkable. Chest x-ray shows no evidence of enlarged cardiac silhouette or volume overload. Patient's cardiac enzymes were negative. However, given his intermittent pain I do feel that he would benefit from hospitalization for risk stratification. However, the patient has elected that he just wants to go home. He will leave AGAINST MEDICAL ADVICE. He does have capacity to make his own decisions. I did international student counselor him that if anything changes that he should return immediately. The patient states he just wants to follow-up with his doctor and does not feel that he needs to stay in the hospital. I did international student counselor him that he is at risk for myocardial infarction, cardiac arrest, permanent or disability, but he will still leave. Impression 1. Chest pain Lab Data Attestation: I reviewed the patient's lab results. Labs: Laboratory Results - last 24 hr 12/19/20 12/19/20 12/19/20 18:30 18:30 18:30 WBC 7.3 RBC 5.50 Hgb 16.8 H Hct 50.0 MCV 90.9 MCH 30.5 MCHC 33.6 RDW Std Deviation 42.0 RDW Coeff of Isai 12.5 Plt Count 227 MPV 10.0 Immature Gran % (Auto) 0.100 Neut % (Auto) 54.7 Lymph % (Auto) 35.4 [place] % (Auto) 7.2 Eos % (Auto) 1.9 Baso % (Auto) 0.7 Absolute Neuts (auto) 4.0 Absolute Lymphs (auto) 2.57 Nucleated RBC % 0 Sodium 138 Potassium 3.8 Chloride 104 Carbon Dioxide 28.0 Anion Gap 6 BUN 14 Creatinine 0.82 Estim Creat Clear Calc 103.86 Est GFR (MDRD) Af Amer 126 Est GFR (MDRD) Non-Af 104 BUN/Creatinine Ratio 17.2 Glucose 92 Calcium 9.0 Troponin I 0.024 B-Natriuretic Peptide 6.8 Radiography Chest X-Ray - ED: 1 View, Read by ED Physician, Heart, Lungs, Mediastinum, Bony Structures and No Acute Disease Diagnostic Testing: Radiology Impression Chest X-Ray 12/19/20 18:35 IMPRESSION: Normal x-ray examination of the chest. Electronically Signed: Rene Bruner MD at 18:57 EDT , Service support , EKG Initial EKG: Attestation: I personally reviewed and interpreted this EKG as follows: Interpretation: Sinus Rhythm and No Acute Injury Pattern Prior: No Prior Discharge Plan Triage Chief Complaint: Chest Pain ED Provider: Chandler Nolasco Dx/Rx/DC Orders Instructions: ED Chest Pain, Uncertain Cause Prescriptions: No Action aspirin 81 mg Tablet 81 mg PO DAILY RF: 0 Primary Care Provider: Kareem Reddy Referrals: Kareem Reddy MD [Primary Care Provider] - Disposition Disposition: Home, self care Discharge Date/Time: 12/19/20 19:46
--- NOTE | 2020-12-19 18:34 | ED.RN ---
NO OLD EKGS IN MUSE
--- NOTE | 2020-12-19 18:35 | RAD_ITS ---
STUDY: X-RAY CHEST REASON FOR EXAM: Male, 55 years old. chest pain TECHNIQUE: Single AP portable view of the chest. COMPARISON: None. FINDINGS: The lungs are clear and expanded. There is no demonstrated pleural abnormality. Normal size heart. Normal mediastinum and alexia. Normal visualized pulmonary arteries. Normal visualized aortic arch and descending thoracic aorta. There are diffuse degenerative changes of the visualized thoracic spine. Normal visualized ribs, clavicles, and shoulders. There is no demonstrated abnormality of the visualized soft tissue structures of the upper abdomen. RAD/Chest 1 View (Portable) IMPRESSION: Normal x-ray examination of the chest. Electronically Signed: Rene Bruner MD at 18:57 EDT , Service support ,
[2020-12-19 18:36] VITALS: O2SAT 99
[2020-12-19 18:39] LABS: Absolute Lymphocyte Count 2.57 X10^3/uL (0.83-4.51); Basophil# 0.05 X10^3/uL; Basophil% 0.7 % (0-1); Eosinophil# 0.14 X10^3/uL; Eosinophils% 1.9 % (0-5); Hemoglobin 16.8 g/dL (13.0-16.5); Lymphocyte # 2.57 X10^3/ul (0.83-4.51); Lymphocyte % 35.4 % (19-41); Mean Corp Hgb Conc 33.6 g/dL (32-36); Mean Corpuscular Hgb 30.5 pg (27.0-32.0); Mean Corpuscular Volume 90.9 fL (80-94); Monocyte# 0.52 X10^3/uL; Monocyte% 7.2 % (0-10); NRBC Flagged by Analyzer 0 % (0-5); Neutrophil # 3.97 X10^3/uL (2.7-7.7); Neutrophil % 54.7 % (47-70); Platelet Count 227 K/mm3 (150-450); RBC Distribution Width CV 12.5 % (11.6-14.6); White Blood Count 7.3 K/mm3 (4.4-11.0)
[2020-12-19 18:48] VITALS: BP 128/82; PULSE 66; RESP 14; O2SAT 99
[2020-12-19] MEDS: Aspirin 81 MG TAB.CHEW 324 MG PO (18:56)
[2020-12-19 18:57] LABS: BUN 14 mg/dL (7-18); Creatinine, Serum 0.82 mg/dL (0.70-1.30); EST Glomerular Filtration Rate 104 mL/min (>60); Estimated Creatinine Clearance 103.86 ml/min; Glucose 92 mg/dL (74-106)
[2020-12-19 18:58] LABS: Anion Gap 6 (5-15); BUN/Creat Ratio 17.2 RATIO (10-20); Chloride 104 mmol/L (98-107); Est Glom Filt Rate - Afr Amer 126 mL/min (>60); Potassium 3.8 mmol/L (3.5-5.1); Sodium Level 138 mmol/L (136-145)
[2020-12-19 19:00] VITALS: BP 141/81; PULSE 69; RESP 14; O2SAT 99
[2020-12-19 19:00] LABS: BNP,B-Type NATRIURETIC PEPTIDE 6.8 pg/mL (0-100)
== END 2020-12-19 19:46 | disposition home or self-care (01) ==
LOC: ED 18:35
PROVIDERS: Emergency Provider Emergency Medicine; PCP Family Medicine
DX: R07.9 Chest pain, unspecified (principal); E78.5 Hyperlipidemia, unspecified; I10 Essential (primary) hypertension; E11.9 Type 2 diabetes mellitus without complications
CPT/HCPCS: 71045; 80048; 83880; 84484; 85025; 93005; 99285; A4216

== ENCOUNTER 2020-12-23 00:26 | Observation (INO) | payer OTHER, SELFPAY ==
[2020-12-23] VITALS (13 sets, daily range): BP systolic 67–141; BP diastolic 36–82; PULSE 45–64; RESP 13–18; TEMP 36.6–36.7; O2SAT 97–100; BMI 35.6; BMI 34.7
--- NOTE | 2020-12-23 00:48 | EKG12_ITS ---
Test Reason : CP ADMIT Blood Pressure : / mmHG Vent. Rate : 050 BPM Atrial Rate : 050 BPM P-R Int : 164 ms QRS Dur : 094 ms QT Int : 408 ms P-R-T Axes : 047 067 058 degrees QTc Int : 371 ms Sinus bradycardia Otherwise normal ECG Confirmed by JOCELYN RAMOS, JESUS ([id number]), advertising editor OSMANY LEON ([id number]) on 12/24/2020 11:22:22 AM Referred By: DR CHOE Confirmed By:JESUS BANKS MD
--- NOTE | 2020-12-23 00:49 | EDS_ITS ---
HPI History of Present Illness Chief Complaint: Chest Pain Narrative Narrative: Patient stated he has been having intermittent chest pains left-sided achy for the last 10 days. Few days ago he was seen in the emergency department had a negative work-up. He signed out AGAINST MEDICAL ADVICE as he did not want to stay in the hospital for a stress test. He comes back tonight as he has persistent discomfort in this area. He also felt little bit of numbness in his left arm earlier this evening that has stopped. He denies history of heart attack in the past. He is never had a heart cath. Does have a history of a heart arrhythmia but not atrial fibrillation in the remote past. History of diabetes but is now diet controlled. Denies a history of hypertension high cholesterol or smoking. Denies any pulmonary embolism risk factors. He took 2 aspirin tonight and came in for further evaluation. He stated this been happening at rest for the last several days [facility] Medical History Diabetes High blood pressure Hyperlipemia Irregular heart beat Psoriasis Home Medications aspirin 81 mg PO DAILY 12/19/20 [History Last Taken Unknown] Allergy/AdvReac Type Severity Reaction Status Date / Time codeine Allergy Nausea/vomi Verified 12/23/20 00:47 ting atorvastatin [From Lipitor] AdvReac stiff Verified 12/23/20 00:47 joints Family History Mother COPD (chronic obstructive pulmonary disease) Glaucoma Diabetes Father Myocardial infarction Social History Smoking Status: Never smoker ROS ROS ED ROS Narrative ROS General: Denies fever, chills, sweats Eyes: Denies visual changes, blurred vision, double vision ENT: Denies ear pain, rhinorrhea, sore throat Cardiovascular: See HPI Respiratory: Denies dyspnea, cough, sputum, dyspnea on exertion, orthopnea,PND GI: Denies abdominal pain, nausea, vomiting, diarrhea, constipation, melena : Denies dysuria, hematuria, frequency Musculoskeletal: Denies myalgias, arthralgias, neck pain, back pain Skin: Denies rash, abscess, abrasions Neuro: Denies headache, weakness, see HPI Psych: Denies depression, anxiety Endo: Denies polyuria, polydipsia, polyphagia Heme: Denies easy bruising, easy bleeding, lymphadenopathy Allergy: Denies hives, swelling EXAM Physical Exam Narrative Exam Narrative: Vital signs reviewed General: Well-nourished well-developed Head: Normocephalic atraumatic Eyes: Pupils equal round and reactive to light extraocular movements intact ENT: TMs clear no hemotympanum no trauma Neck: Nontender full range of motion Cardiovascular: Regular rate rhythm no murmurs normal S1-S2 Respiratory: No distress clear to auscultation bilaterally chest nontender Abdomen: Soft nontender nondistended normal bowel sounds no masses Back: Nontender no CVA tenderness Extremities: Nontender active range of motion ?4 extremities no trauma Skin: Normal color no trauma Neuro alert oriented cranial nerves II through XII intact normal strength sensation reflexes Const Vital Signs: 12/23/20 00:26 12/23/20 00:48 12/23/20 00:52 Temperature 97.8 F Temperature Source Temporal Pulse Rate 56 L Respiratory Rate 13 Respiratory Effort Normal Blood Pressure 110/54 L Blood Pressure Mean 72 Pulse Ox 100 Oxygen Delivery Method Room Air 12/23/20 01:09 12/23/20 01:26 Temperature Temperature Source Pulse Rate 55 L 55 L Respiratory Rate 18 Respiratory Effort Blood Pressure 141/82 H 122/70 H Blood Pressure Mean 101 Pulse Ox Oxygen Delivery Method Heart Score History: Moderately Suspicious ECG: Normal Age: >45 - <65 years Risk Factors: 1 or 2 Risk Factors Troponin: </= Normal Limit Score: 3 MDM MDM MDM Narrative Medical decision making narrative: EKG obtained upon arrival shows sinus bradycardia at a rate of 55. No acute STEMI or ischemia. Unchanged from prior EKG. Patient given sublingual nitroglycerin. He took aspirin at home. Chest x-ray obtained. My interpretation the chest x-ray shows no acute findings. No widened mediastinum. Sublingual nitro x1 gave him a headache. He did not do anything for his chest discomfort which is mild in nature at this time. Troponin is negative. Lab work shows no major abnormalities. Patient is willing to stay in the hospital for further cardiac work-up. He is never had a stress test. Discussed with the hospitalist and will be admitted Lab Data Labs: Laboratory Results - last 24 hr 12/23/20 12/23/20 00:45 00:45 WBC 7.4 RBC 5.00 Hgb 15.7 Hct 46.6 MCV 93.2 MCH 31.4 MCHC 33.7 RDW Std Deviation 43.1 RDW Coeff of Isai 12.4 Plt Count 207 MPV 10.1 Immature Gran % (Auto) 0.100 Neut % (Auto) 52.0 Lymph % (Auto) 36.9 [place] % (Auto) 7.6 Eos % (Auto) 2.4 Baso % (Auto) 1.0 Absolute Neuts (auto) 3.8 Absolute Lymphs (auto) 2.71 Nucleated RBC % 0 Sodium 138 Potassium 3.7 Chloride 106 Carbon Dioxide 26.0 Anion Gap 6 BUN 16 Creatinine 0.73 Estim Creat Clear Calc 116.67 Est GFR (MDRD) Af Amer 142 Est GFR (MDRD) Non-Af 117 BUN/Creatinine Ratio 21.8 H Glucose 98 Calcium 8.5 Troponin I 0.028 Radiography Diagnostic Testing: Radiology Impression Chest X-Ray 12/23/20 01:10 IMPRESSION: No acute cardiopulmonary disease. Electronically Signed: Mariam Pichardo MD at 1:25 EDT , Service support , Discharge Plan Triage Chief Complaint: Chest Pain ED Provider: Lamberto Hoffman Dx/Rx/DC Orders Prescriptions: No Action aspirin 81 mg Tablet 81 mg PO DAILY RF: 0 Primary Care Provider: Kareem Reddy
[2020-12-23 00:56] LABS: Absolute Lymphocyte Count 2.71 X10^3/uL (0.83-4.51); Absolute Neutrophil Count 3.8 X10^3/uL (2.0-7.7); Basophil# 0.07 X10^3/uL; Eosinophil# 0.18 X10^3/uL; Eosinophils% 2.4 % (0-5); Hematocrit 46.6 % (40-54); Hemoglobin 15.7 g/dL (13.0-16.5); Lymphocyte # 2.71 X10^3/ul (0.83-4.51); Lymphocyte % 36.9 % (19-41); Mean Corp Hgb Conc 33.7 g/dL (32-36); Mean Corpuscular Hgb 31.4 pg (27.0-32.0); Mean Corpuscular Volume 93.2 fL (80-94); Mean Platelet Vol. 10.1 fl (6.2-12.0); Monocyte# 0.56 X10^3/uL; Monocyte% 7.6 % (0-10); NRBC Flagged by Analyzer 0 % (0-5); Neutrophil # 3.82 X10^3/uL (2.7-7.7); Platelet Count 207 K/mm3 (150-450); RBC Distribution Width CV 12.4 % (11.6-14.6); RBC Distribution Width SD 43.1 fl (35.1-43.9); White Blood Count 7.4 K/mm3 (4.4-11.0)
--- NOTE | 2020-12-23 01:10 | RAD_ITS ---
STUDY: X-RAY CHEST REASON FOR EXAM: Male, 55 years old. chest pain TECHNIQUE: Single AP portable view of the chest. COMPARISON: 12/19/2020. FINDINGS: The lungs are clear and expanded. There is no demonstrated pleural abnormality. Normal size heart. Normal mediastinum and alexia. Normal visualized pulmonary arteries. Normal visualized aortic arch and descending thoracic aorta. There are diffuse degenerative changes of the visualized thoracic spine. There is degenerative osteoarthritis of the bilateral shoulders. There is no demonstrated abnormality of the visualized soft tissue structures of the upper abdomen. RAD/Chest 1 View (Portable) IMPRESSION: No acute cardiopulmonary disease. Electronically Signed: Mariam Pichardo MD at 1:25 EDT , Service support ,
[2020-12-23 01:12] LABS: Anion Gap 6 (5-15); BUN 16 mg/dL (7-18); BUN/Creat Ratio 21.8 RATIO (10-20); Calcium,Total 8.5 mg/dL (8.5-10.1); Chloride 106 mmol/L (98-107); Creatinine, Serum 0.73 mg/dL (0.70-1.30); EST Glomerular Filtration Rate 117 mL/min (>60); Est Glom Filt Rate - Afr Amer 142 mL/min (>60); Estimated Creatinine Clearance 116.67 ml/min; Glucose 98 mg/dL (74-106); Potassium 3.7 mmol/L (3.5-5.1); Sodium Level 138 mmol/L (136-145)
[2020-12-23] MEDS: Nitroglycerin SL (ED/IMG/CATH) 0.4 MG TABLET SL (01:26)
--- NOTE | 2020-12-23 02:03 | EKG12_ITS ---
Test Reason : CP Blood Pressure : / mmHG Vent. Rate : 055 BPM Atrial Rate : 055 BPM P-R Int : 164 ms QRS Dur : 090 ms QT Int : 390 ms P-R-T Axes : 057 073 054 degrees QTc Int : 373 ms Sinus bradycardia Otherwise normal ECG Confirmed by JOCELYN RAMOS, JESUS ([id number]), scientific editor OSMANY LEON ([id number]) on 12/25/2020 8:52:19 AM Referred By: EVE Confirmed By:JESUS BANKS MD
--- NOTE | 2020-12-23 02:06 | HP.PCM.HOS_ITS ---
HPI - General General Date of Admission: 12/23/20 HPI Narrative MADINA ROBERTS, is a 55 M with a significant history of diabetes mellitus; dysrhythmia previously on metoprolol; hypertension and psoriasis who presents to the emergency department with persistent and progressively worsening left-sided dull aching chest pain that started about 10 days ago. The chest pain radiates to his left shoulder blade and in his left arm where he has a tingling sensation. He denies any aggravating or ameliorating factors to the pain. Associated with symptoms is dyspnea on exertion. He denies any nausea vomiting or diaphoresis. Of note patient was at a hospital emergency department on 12/19/2020 and he left AGAINST MEDICAL ADVICE. He presented with pretty much the same symptoms at that time. REPLACED BY [facility] Medical History (Updated 12/23/20 @ 04:[address] Bobby Baker MD) Diabetes High blood pressure History of stress test Hyperlipemia Irregular heart beat Kidney stones Migraines Psoriasis Home Medications aspirin 81 mg PO DAILY 12/19/20 [History Last Taken 12/22/202199] Allergy/AdvReac Type Severity Reaction Status Date / Time codeine Allergy Nausea/vomi Verified 12/23/20 00:47 ting atorvastatin [From Lipitor] AdvReac stiff Verified 12/23/20 00:47 joints nitroglycerin AdvReac Low blood Verified 12/23/20 01:47 pressure Family History Mother COPD (chronic obstructive pulmonary disease) Glaucoma Diabetes Father Myocardial infarction Surgical History (Updated 12/23/20 @ 02:57 by Sofie Gandhi) History of cholecystectomy Social History Smoking Status: Never smoker ROS ROS Narrative 12 point review of systems is negative except as stated in HPI. Vital Signs Vital Signs Vital Signs: 12/23/20 00:26 12/23/20 00:48 12/23/20 00:52 Temperature 97.8 F Temperature Source Temporal Pulse Rate 56 L Respiratory Rate 13 Respiratory Effort Normal Blood Pressure 110/54 L Blood Pressure Mean 72 Pulse Ox 100 Oxygen Delivery Method Room Air 12/23/20 01:09 12/23/20 01:26 12/23/20 01:38 Temperature Temperature Source Pulse Rate 55 L 55 L 45 L Respiratory Rate 18 16 Respiratory Effort Blood Pressure 141/82 H 122/70 H 67/36 L Blood Pressure Mean 101 46 Pulse Ox Oxygen Delivery Method 12/23/20 01:45 Temperature 97.8 F Temperature Source Temporal Pulse Rate 48 L Respiratory Rate 16 Respiratory Effort Blood Pressure 102/61 Blood Pressure Mean 74 Pulse Ox 100 Oxygen Delivery Method Room Air Physical Exam Narrative Alert and oriented x3 Nontraumatic; normocephalic Lung clear to auscultate Heart sounds S1-S2. No murmur, gallop or rubs. Abdomen bowel sounds present soft, nontender nondistended Extremity without edema cyanosis or clubbing. Lab / Micro Data Result Diagrams: 12/23/20 00:45 12/23/20 00:45 Labs: Laboratory Results - last 24 hr 12/23/20 12/23/20 00:45 00:45 WBC 7.4 RBC 5.00 Hgb 15.7 Hct 46.6 MCV 93.2 MCH 31.4 MCHC 33.7 RDW Std Deviation 43.1 RDW Coeff of Isai 12.4 Plt Count 207 MPV 10.1 Immature Gran % (Auto) 0.100 Neut % (Auto) 52.0 Lymph % (Auto) 36.9 [place] % (Auto) 7.6 Eos % (Auto) 2.4 Baso % (Auto) 1.0 Absolute Neuts (auto) 3.8 Absolute Lymphs (auto) 2.71 Nucleated RBC % 0 Sodium 138 Potassium 3.7 Chloride 106 Carbon Dioxide 26.0 Anion Gap 6 BUN 16 Creatinine 0.73 Estim Creat Clear Calc 116.67 Est GFR (MDRD) Af Amer 142 Est GFR (MDRD) Non-Af 117 BUN/Creatinine Ratio 21.8 H Glucose 98 Calcium 8.5 Troponin I 0.028 Radiology Impression Chest X-Ray 12/23/20 01:10 IMPRESSION: No acute cardiopulmonary disease. Electronically Signed: Mariam Pichardo MD at 1:25 EDT , Service support , Assessment & Plan Assessment/Plan (1) Chest pain: Status: Acute Code(s): R07.9 - Chest pain, unspecified Qualifiers: Chest pain type: unspecified Qualified Code(s): R07.9 - Chest pain, unspecified Plan: Place on a monitored bed at progressive care unit Actual CXR image was independently visualized. No acute cardiopulmonary process was noted. Actual EKG tracing was independently visualized. EKG tracing showed bradycardia. Patient takes 81 mg aspirin daily. On day of presentation he took 2 tablets of 51 mg of aspirin. ASA 81 mg p.o. daily ordered Morphine as needed for pain ordered We will check lipid panel and A1c. Reportedly previously had high A1c but ever since his blood glucose as well as been around 90s. Initial troponin was negative Serial cardiac enzymes ordered Stat EKG as needed for chest pain Treadmill stress test in the AM if the cardiac enzymes are negative DVT prophylaxis SCD ordered Visit Charges OBSV E&M: 79199 Initial observation care L2
[2020-12-23] MEDS: 0.9% Saline Lock 10 ML Syringe IV (03:15)
[2020-12-23] MEDS: Aspirin E.C. 81 MG Tablet PO (06:36)
[2020-12-23 07:09] LABS: Cholesterol 166 mg/dL (200); High Density Lipoprotein 60 mg/dL; Triglycerides 103 mg/dL; Very Low Density Lipoprotein 21 mg/dL (5-40)
[2020-12-23 07:51] LABS: Hemoglobin A1c 5.1 % (3.8-5.6)
--- NOTE | 2020-12-23 11:32 | STRESSREP ---
Stress Test Report 55-year-old man with a history of coronary artery disease. Stress protocol: Resting EKG demonstrates sinus bradycardia with a rate of 52 bpm no intervals are noted resting blood pressure is 128/82 mmHg. The patient exercised according to the regular Monster protocol for total duration of 9 minutes. Patient completed stage III of the Monster protocol. The maximum heart rate attained was 146 bpm which was 89% of max infected heart rate the maximum workload was 10.1 metabolic equivalents. At rest there were no ST or T wave changes noted to suggest ischemia and at peak exercise upsloping ST changes were noted for did not meet the criteria for ischemia. No clinical angina was noted. The patient however noted mild chest discomfort throughout the test. The peak blood pressure 190/72 mmHg which was a normal blood pressure response to exercise. Occasional premature ventricular complexes were noted. The patient was however noted to be short of breath throughout the testing. Myocardial perfusion protocol. 14.1 mCi of technetium 99m sestamibi was injected at rest. The patient exercised according to regular Monster protocol for 9 minutes and at peak exercise 44.8 mCi of technetium 99m sestamibi was injected stress images were obtained stress and rest images were reconstructed and compared in the short axis vertical long horizontal long axis. Gated images were also obtained. Perfusion SPECT analysis: Review of the stress images demonstrate normal uptake of tracer noted in all areas of the myocardium. The resting images similarly demonstrate normal uptake of tracer noted in all areas of the myocardium. No areas of reversibility are noted to suggest ischemia no previous infarct is noted. Gated SPECT analysis: The gated ejection fraction is noted to be 76%. Conclusion: Normal exercise myocardial perfusion stress test at a high workload. No obvious clinical angina noted. Preserved ejection fraction
--- NOTE | 2020-12-23 11:45 | PCM.DC.SUM ---
Providers Date of Admission: 12/23/20 Primary Care Physician: Dr. Kareem Reddy MD Reason For Visit: CHEST PAIN Diagnosis Discharge Diagnosis (1) Chest pain: Status: Acute Code(s): R07.9 - Chest pain, unspecified Qualifiers: Chest pain type: unspecified Qualified Code(s): R07.9 - Chest pain, unspecified Medications at Discharge Home Medications aspirin 81 mg PO DAILY 12/19/20 nitroglycerin 0.4 mg SUBLINGUAL Q5M PRN #30 tab 12/23/20 Hospital Course Operations None Procedures Nuclear stress test Summary of Care Provided Minutes Spent on Discharge: 35 Hospital Course: Patient is a 55-year-old male past medical history of diabetes mellitus which he sees has not been taking any medication for after he lost significant amount of weight, history of PVCs previously on metoprolol, hypertension and psoriasis was admitted through the ED in the early hours of 12/23/2020 with a complaint of persistent and progressively worsening chest pain has gradually worsened and started about 10 days prior to admission. He had no aggravating or relieving factors and has shortness of breath on exertion. He had been seen in the ED on 12/19/2020 for similar complaint but left AGAINST MEDICAL ADVICE and presented again on 12/23/2020. On admission troponins x3 were negative and EKG showed no acute ST changes. He was admitted to be managed for chest pain rule out ACS. He had a stress test on 12/24/2019 which was negative for any evidence of ischemia and showed EF of 76%. D dimer done was also not elevated and was only 0.29. Patient remained stable chest pain did not recur during admission. He was discharged home on 12/23/2020 is follow-up with his primary care doctor in 1 to 2 weeks. Patient was seen and examined prior to discharge. He had no complaints and review of systems otherwise negative. Labs and vitals reviewed. Medication reviewed and reconciled. Physical Exam Const alert, oriented x3 and no apparent distress General Appearance: cooperative, comfortable and well kempt Nutritional Appearance: other HEENT normocephalic, head/scalp atraumatic, hearing grossly normal bilaterally and moist oral mucous membranes Eyes PERRL Neck no lymphadenopathy Resp normal respiratory effort, no retractions and no use of accessory muscles Cardio regular rate, regular rhythm, S1 normal heart sound, S2 normal heart sound and no murmurs GI normal to inspection, nondistended, normoactive bowel sounds, soft to palpation, non-distended and hepatosplenomegaly Extremity normal to inspection and full ROM Skin no rashes or lesions noted Neuro oriented x3 and CN's II-XII intact bilaterally Sensorium / Orientation: awake and alert Psych affect normal ABG / Lab / Microbiology Data Result Diagrams: 12/23/20 00:45 12/23/20 00:45 Laboratory: Laboratory Results - last 24 hr 12/23/20 12/23/20 12/23/20 00:45 00:45 02:50 WBC 7.4 RBC 5.00 Hgb 15.7 Hct 46.6 MCV 93.2 MCH 31.4 MCHC 33.7 RDW Std Deviation 43.1 RDW Coeff of Isai 12.4 Plt Count 207 MPV 10.1 Immature Gran % (Auto) 0.100 Neut % (Auto) 52.0 Lymph % (Auto) 36.9 [place] % (Auto) 7.6 Eos % (Auto) 2.4 Baso % (Auto) 1.0 Absolute Neuts (auto) 3.8 Absolute Lymphs (auto) 2.71 Nucleated RBC % 0 Sodium 138 Potassium 3.7 Chloride 106 Carbon Dioxide 26.0 Anion Gap 6 BUN 16 Creatinine 0.73 Estim Creat Clear Calc 116.67 Est GFR (MDRD) Af Amer 142 Est GFR (MDRD) Non-Af 117 BUN/Creatinine Ratio 21.8 H Glucose 98 Hemoglobin A1c Calcium 8.5 Troponin I 0.028 0.032 Triglycerides Cholesterol LDL Cholesterol VLDL Cholesterol HDL Cholesterol 12/23/20 12/23/20 06:30 06:30 WBC RBC Hgb Hct MCV MCH MCHC RDW Std Deviation RDW Coeff of Isai Plt Count MPV Immature Gran % (Auto) Neut % (Auto) Lymph % (Auto) [place] % (Auto) Eos % (Auto) Baso % (Auto) Absolute Neuts (auto) Absolute Lymphs (auto) Nucleated RBC % Sodium Potassium Chloride Carbon Dioxide Anion Gap BUN Creatinine Estim Creat Clear Calc Est GFR (MDRD) Af Amer Est GFR (MDRD) Non-Af BUN/Creatinine Ratio Glucose Hemoglobin A1c 5.1 Calcium Troponin I 0.024 Triglycerides 103 Cholesterol 166 LDL Cholesterol 85 VLDL Cholesterol 21 HDL Cholesterol 60 Radiography Diagnostic Testing: Radiology Impression Chest X-Ray 12/23/20 01:10 IMPRESSION: No acute cardiopulmonary disease. Electronically Signed: Mariam Pichardo MD at 1:25 EDT , Service support , D/C Instructions Discharge Diet: Low fat / Low cholesterol Discharge Activity: Return to Normal Activity Weight Bearing Status: Weight bearing as tolerated Call your doctor if you observe: Fever of 101 or Higher, Shortness of breath, Chest pain and Uncontrolled pain Please follow up with your Primary Care Physician in: 1-2 weeks Meaningful Use Info Meaningful Use Diagnoses (Choose all that apply): None applicable Discharge Plan Admission Admit Date/Time: 12/23/20 01:38 Primary Reason for Your Visit: chest pain Attending Provider: Ofelia Akhtar Primary Care Provider: Kareem Reddy Instructions Patient Instructions: What Is Angina?, Recognizing a Heart Attack or Angina, Warning Signs of a Heart Attack, ED Chest Pain, Noncardiac, ED Chest Pain, Uncertain Cause, ED Pain, Acute, Uncertain Cause Additional Instructions / Restrictions: follow up with PCP in 1-2 weeks Discharge Orders/Prescriptions Prescriptions: New nitroglycerin 0.4 mg Tablet, Sublingual 0.4 mg sublingual Q5M PRN (Reason: Chest pain) Qty: 30 RF: 0 Continued aspirin 81 mg Tablet 81 mg PO DAILY RF: 0 Referrals: Kareem Reddy MD [Primary Care Provider] - (follow up in 1-2 weeks) Disposition Disposition (needs filled in before D/C Order can be placed): Home, self care Visit Charges OBSV E&M: 02861 Observ/hosp same date L2
[2020-12-23 13:07] LABS: D-Dimer Quantitative (DVT/PE) 0.29 FEU/ug/m (0.27-0.49)
--- NOTE | 2020-12-23 14:18 | PHA.DC.MR ---
Pharmacy Service has performed discharge medication reconciliation for this patient. Patient does have new Nitrostat Rx, per nursing not planning on picking up medication and taking it, differing education at this time. Home Medications aspirin 81 mg PO DAILY 12/19/20 nitroglycerin 0.4 mg SUBLINGUAL Q5M PRN #30 tab 12/23/20 The patient's discharge medication list was reviewed for discrepancies and discrepancies were resolved.
--- NOTE | 2020-12-23 15:18 | PCM.DC ---
Discharge Instructions Outpatient Procedure Reason For Visit: CHEST PAIN Diet Discharge Diet: Low fat / Low cholesterol Activity Discharge Activity: Return to Normal Activity Weight Bearing Status: Weight bearing as tolerated Dressing / Incision Call your doctor if you observe: Fever of 101 or Higher, Shortness of breath, Chest pain and Uncontrolled pain Follow Up Care Test Results: Test results from this visit will be discussed in further detail at your follow-up appointment, if applicable. Discharge Plan Admission Admit Date/Time: 12/23/20 01:38 Primary Reason for Your Visit: chest pain Attending Provider: Ofelia Akhtar Primary Care Provider: Kareem Reddy Instructions Patient Instructions: What Is Angina?, Recognizing a Heart Attack or Angina, Warning Signs of a Heart Attack, ED Chest Pain, Noncardiac, ED Chest Pain, Uncertain Cause, ED Pain, Acute, Uncertain Cause Additional Instructions / Restrictions: follow up with PCP in 1-2 weeks Discharge Orders/Prescriptions Prescriptions: New nitroglycerin 0.4 mg Tablet, Sublingual 0.4 mg sublingual Q5M PRN (Reason: Chest pain) Qty: 30 RF: 0 Continued aspirin 81 mg Tablet 81 mg PO DAILY RF: 0 Referrals: Kareem Reddy MD [Primary Care Provider] - (follow up in 1-2 weeks) Disposition Disposition (needs filled in before D/C Order can be placed): Home, self care
== END 2020-12-23 11:43 | disposition home or self-care (01) ==
LOC: ED 01:33 → PCU 02:09
PROVIDERS: Admitting Provider Hospitalist; Emergency Provider Emergency Medicine; PCP Family Medicine; Visit Provider Student in an Organized Health Care Education/Training Program
DX: R07.89 Other chest pain (principal); R20.0 Anesthesia of skin; E11.9 Type 2 diabetes mellitus without complications; E78.5 Hyperlipidemia, unspecified; L40.9 Psoriasis, unspecified; I10 Essential (primary) hypertension; Z79.82 Long term (current) use of aspirin; R00.1 Bradycardia, unspecified
CPT/HCPCS: 36415; 71045; 78452; 80048; 80061; 83036; 84484; 85025; 85379; 93005; 93017; 99218; 99285; A9500; J7030; A4216; G0378

== ENCOUNTER 2023-01-23 03:34 | Inpatient (IN) | payer OTHER, SELFPAY ==
[2023-01-23] VITALS (12 sets, daily range): BP systolic 128–162; BP diastolic 68–90; PULSE 51–68; RESP 16–97; TEMP 35.7–36.7; O2SAT 18–98; BMI 43.0; BMI 38.7
--- NOTE | 2023-01-23 04:19 | EKG12_ITS ---
Test Reason : CP Blood Pressure : / mmHG Vent. Rate : 057 BPM Atrial Rate : 057 BPM P-R Int : 154 ms QRS Dur : 092 ms QT Int : 390 ms P-R-T Axes : 063 065 088 degrees QTc Int : 379 ms Sinus bradycardia Otherwise normal ECG Confirmed by PHILIPPE RAMOS, BARTOLOME ([id number]), communications editor OSMANY LEON ([id number]) on 01/26/2023 8:02:37 AM Referred By: VALERIE Confirmed By:BARTOLOME PAEZ MD
[2023-01-23] MEDS: Aspirin 325 MG Tablet PO (04:21)
[2023-01-23 04:23] LABS: Absolute Lymphocyte Count 2.27 X10^3/uL (0.83-4.51); Absolute Neutrophil Count 4.4 X10^3/uL (2.0-7.7); Basophil# 0.05 X10^3/uL; Basophil% 0.7 % (0-1); Eosinophil# 0.23 X10^3/uL; Hematocrit 46.2 % (40-54); Lymphocyte # 2.27 X10^3/ul (0.83-4.51); Mean Corp Hgb Conc 34.6 g/dL (32-36); Mean Corpuscular Hgb 31.4 pg (27.0-32.0); Mean Corpuscular Volume 90.6 fL (80-94); Mean Platelet Vol. 10.1 fl (6.2-12.0); Monocyte# 0.63 X10^3/uL; Monocyte% 8.3 % (0-10); NRBC Flagged by Analyzer 0 % (0-5); Neutrophil # 4.37 X10^3/uL (2.7-7.7); Neutrophil % 57.7 % (47-70); Platelet Count 223 K/mm3 (150-450); RBC Distribution Width CV 12.6 % (11.6-14.6); RBC Distribution Width SD 41.9 fl (35.1-43.9); White Blood Count 7.6 K/mm3 (4.4-11.0)
--- NOTE | 2023-01-23 04:35 | RAD_ITS ---
INDICATION: chest pain EXAMINATION/TECHNIQUE: X-RAY - XR Chest 2 Views COMPARISON: 12/23/2020 FINDINGS: LINES/DEVICES: None. LUNGS: No consolidation, edema or effusion. No pneumothorax. MEDIASTINUM AND CARDIOVASCULAR STRUCTURES: Cardiac silhouette not enlarged. Central airways and mediastinal contour are unremarkable. BONES AND SOFT TISSUES: Multilevel degenerative changes. RAD/Chest PA and Lateral IMPRESSION: No radiographic evidence of acute cardiopulmonary disease. Electronically Signed: Bryan Negro MD at 4:53 EDT ,
[2023-01-23 04:42] LABS: Anion Gap 7 (5-15); BUN 12 mg/dL (7-18); BUN/Creat Ratio 17.2 RATIO (10-20); Calcium,Total 8.4 mg/dL (8.5-10.1); Chloride 107 mmol/L (98-107); EST Glomerular Filtration Rate 123 mL/min (>60); Est Glom Filt Rate - Afr Amer 149 mL/min (>60); Estimated Creatinine Clearance 118.77 ml/min; Glucose 101 mg/dL (74-106); Magnesium 2.1 mg/dL (1.6-2.6); Potassium 3.7 mmol/L (3.5-5.1); Sodium Level 139 mmol/L (136-145); Troponin-I HS 87 pg/mL (3.0-78.0)
[2023-01-23] MEDS: Nitroglycerin Oint 1 INCH PACKET TD ×3 (05:17→20:00)
--- NOTE | 2023-01-23 05:41 | EX.ED.DYSGE1 ---
HPI History of Present Illness Chief Complaint: Chest Pain Narrative Narrative: Patient is a 57-year-old male who presents with intermittent chest pain. He states he used to be morbidly obese and had hypertension and hyperlipidemia but he states since losing weight he no longer needs to take these medications. He denies any history of diabetes or smoking. He does report that his father did have a heart attack. Patient states over the past 1 to 2 weeks he will have 1-2 episodes a day of a midsternal to left-sided chest pressure. He states that the symptoms will persist for 10 to 30 seconds and then resolve. He states that there is no nausea vomiting diaphoresis or shortness of breath associated with them. He states there are days where the symptoms were not present. However he states this morning he had an increased frequency of the symptoms and that they are more intense in nature. He states that they were still midsternal to left-sided chest discomfort and a pressure in nature without nausea vomiting or diaphoresis but as they were occurring more frequently and lasting longer this concerned him so he comes in for evaluation. [facility] Medical History Diabetes High blood pressure History of stress test Hyperlipemia Irregular heart beat Kidney stones Migraines Psoriasis Home Medications NK 01/23/23 [History Last Taken Unknown] Allergy/AdvReac Type Severity Reaction Status Date / Time codeine Allergy Nausea/vomi Verified 01/23/23 03:41 ting atorvastatin [From Lipitor] AdvReac stiff Verified 01/23/23 03:41 joints nitroglycerin AdvReac Low blood Verified 01/23/23 03:41 pressure Family History Mother COPD (chronic obstructive pulmonary disease) Glaucoma Diabetes Father Myocardial infarction Surgical History History of cholecystectomy Social History Smoking Status: Never smoker ROS ROS ED Constitutional Constitutional ED: Denies chills or fever(s) ENT ENT ED: Denies sore throat Cardiovascular Cardiovascular: Reports chest pain; Denies palpitations or racing heartbeat Respiratory/Chest Respiratory/Chest: Denies cough or dyspnea Gastrointestinal Gastrointestinal: Denies abdominal pain, diarrhea, nausea or vomiting Genitourinary Genitourinary ED: Denies dysuria Musculoskeletal Musculoskeletal: Denies myalgias Integumentary Denies rash Neurologic Neurologic: Denies headache(s) Hematologic/Lymphatic Hematologic/Lymphatic: Denies easy bleeding or easy bruising EXAM Physical Exam Const Vital Signs: 01/23/23 03:38 01/23/23 03:42 01/23/23 04:40 Temperature 97.9 F Temperature Source Temporal Pulse Rate 60 56 L Respiratory Rate 97 H 18 Respiratory Pattern Normal Blood Pressure 162/77 H 146/75 H Blood Pressure Mean 105 98 Pulse Ox 18 96 Oxygen Delivery Method Room Air 01/23/23 05:17 01/23/23 05:20 Temperature Temperature Source Pulse Rate 54 L 51 L Respiratory Rate 18 Respiratory Pattern Blood Pressure 137/70 H 137/70 H Blood Pressure Mean 92 Pulse Ox 93 Oxygen Delivery Method Room Air Positive well nourished, well developed and obese General Appearance ED: well developed Nutritional Appearance: obese HEENT Reports moist mucous membranes Eyes PERRL and EOMs intact bilaterally General Eye ED: Negative for scleral icterus Neck supple and no JVD Chest Wall palpation of chest normal Resp normal respiratory effort and clear to auscultation bilaterally Cardio regular rate and regular rhythm Rate: other Other Details: Radial pulses are plus 2 out of 4 bilaterally are equal and symmetric GI normal to inspection, nondistended, normoactive bowel sounds, non-tender, non-distended and no masses GI Narrative: No voluntary guarding or rigidity no pulsatile mass or fluid wave Auscultation: normoactive bowel sounds Palpation: soft Back/Spine no CVA tenderness Extremity normal to inspection Extremity Narrative: No asymmetric edema no pitting edema negative Homans' sign bilaterally Neuro oriented x3 and CN's II-XII intact bilaterally Sensorium / Orientation: alert Psych mental status grossly normal Skin no rashes or lesions noted MDM MDM MDM Narrative Medical decision making narrative: Patient presented to the ER with stable vitals. His report of chest discomfort described as a pressure is concerning for acute coronary syndrome but he does not have other classic symptoms such as nausea vomiting diaphoresis or shortness of breath. Also risk factors are low to moderate. Differential diagnosis includes acute coronary syndrome versus Prinzmetal's angina versus pneumonia versus pneumothorax versus pancreatitis or esophageal spasm. Basic blood work was obtained and does show initial troponin elevated at 87 and otherwise no clinically significant finding. Chest x-ray revealed no acute lung pathology. The patient was having recurrent symptoms in the ER and he was kept on the monitor for this and there was no dysrhythmia or ischemic changes noted. At this time based on the patient's increasing symptoms and elevated troponin he will need admitted to the hospital. The case was discussed with the heel compressor on-call and they state that as the patient is having only intermittent pain to provides topical nitro but to hold off on anticoagulation at this time. The patient was then admitted to the medicine service after consultation for further evaluation of his elevated troponin and recurrent chest discomfort. History & Record Review Discussion w/independent historian: Patient and Significant other Lab Data Attestation: I reviewed the patient's lab results. Labs: Laboratory Results - last 24 hr 01/23/23 01/23/23 04:17 04:17 WBC 7.6 RBC 5.10 Hgb 16.0 Hct 46.2 MCV 90.6 MCH 31.4 MCHC 34.6 RDW Std Deviation 41.9 RDW Coeff of Isai 12.6 Plt Count 223 MPV 10.1 Immature Gran % (Auto) 0.300 Neut % (Auto) 57.7 Lymph % (Auto) 30.0 [place] % (Auto) 8.3 Eos % (Auto) 3.0 Baso % (Auto) 0.7 Absolute Neuts (auto) 4.4 Absolute Lymphs (auto) 2.27 Nucleated RBC % 0 Sodium 139 Potassium 3.7 Chloride 107 Carbon Dioxide 25.0 Anion Gap 7 BUN 12 Creatinine 0.70 Estim Creat Clear Calc 118.77 Est GFR (MDRD) Af Amer 149 Est GFR (MDRD) Non-Af 123 BUN/Creatinine Ratio 17.2 Glucose 101 Calcium 8.4 L Magnesium 2.1 Troponin I High Sens 87 H Radiography Diagnostic Testing: Clinical Impression(s) from Imaging Studies Chest X-Ray 01/23/23 04:35 IMPRESSION: No radiographic evidence of acute cardiopulmonary disease. Electronically Signed: Bryan Negro MD at 4:53 EDT , Chest x-ray as interpreted by the emergency medicine physician reveals no acute infiltrate pneumothorax or pleural effusion Management Discussion w/another healthcare provider: Hospitalist Discharge Plan Triage Chief Complaint: Chest Pain ED Provider: Maurilio Bhakta Dx/Rx/DC Orders Clinical Impression: Chest pain, Elevated troponin Prescriptions: No Action NK Primary Care Provider: Kareem Reddy Referrals: Kareem Reddy MD [Primary Care Provider] - Disposition Disposition: Acute Care Hospital [facility]
--- NOTE | 2023-01-23 06:15 | PCM.HP.STD ---
HPI - General General Date of Admission: 01/23/23 Date of Service: 01/23/23 Chief Complaint: chest pain HPI Narrative MADINA ROBERTS, is a 57 M who presents with chest pain. He states symptoms started at about 3 AM. They are intermittent. Said it is diffuse across his chest and went down his left arm. He presented to the emergency room and had a work-up that showed a slightly elevated troponin of 87. Cardiology was contacted and told emergency room physician to hold off on anticoagulation. Patient had chest pain back in 2020 underwent stress test that was negative at that time. He stated the chest pain today was different as at that time was more localized in the center of his chest. States more left-sided but more diffuse as well. They did apply Nitropaste and the patient is currently chest pain-free. [facility] Medical History Diabetes High blood pressure History of stress test Hyperlipemia Irregular heart beat Kidney stones Migraines Psoriasis Home Medications NK 01/23/23 [History Last Taken Unknown] Allergy/AdvReac Type Severity Reaction Status Date / Time codeine Allergy Nausea/vomi Verified 01/23/23 03:41 ting atorvastatin [From Lipitor] AdvReac stiff Verified 01/23/23 03:41 joints nitroglycerin AdvReac Low blood Verified 01/23/23 03:41 pressure Family History Mother COPD (chronic obstructive pulmonary disease) Glaucoma Diabetes Father Myocardial infarction Surgical History History of cholecystectomy Social History Smoking Status: Never smoker ROS ROS Narrative Patient states that he has lost weight and it is helped with myriad of his medical issues as well as lower extremity edema. Patient denies any current lower extremity edema. All review of systems were negative except as mentioned above in the history of present illness and the other review of systems. Vital Signs Vital Signs Vital Signs: 01/23/23 03:38 01/23/23 03:42 01/23/23 04:40 Temperature 36.6 C Temperature Source Temporal Pulse Rate 60 56 L Respiratory Rate 97 H 18 Respiratory Pattern Normal Blood Pressure 162/77 H 146/75 H Blood Pressure Mean 105 98 Pulse Ox 18 96 Oxygen Delivery Method Room Air 01/23/23 05:17 01/23/23 05:20 01/23/23 05:40 Temperature Temperature Source Pulse Rate 54 L 51 L 54 L Respiratory Rate 18 18 Respiratory Pattern Blood Pressure 137/70 H 137/70 H 160/90 H Blood Pressure Mean 92 113 Pulse Ox 93 94 Oxygen Delivery Method Room Air Room Air 01/23/23 05:44 01/23/23 06:04 Temperature 36.6 C Temperature Source Temporal Pulse Rate 58 L 54 L Respiratory Rate 18 18 Respiratory Pattern Blood Pressure 160/90 H 141/73 H Blood Pressure Mean 113 95 Pulse Ox 94 93 Oxygen Delivery Method Room Air Room Air Weight Weight: 136.2 kg Body Mass Index (BMI) 43.0 Physical Exam Const alert and no apparent distress General Appearance: cooperative HEENT normocephalic and head/scalp atraumatic Resp normal respiratory effort, no retractions, no use of accessory muscles and clear to auscultation bilaterally Cardio regular rate, regular rhythm, S1 normal heart sound and S2 normal heart sound GI normal to inspection, nondistended, normoactive bowel sounds, soft to palpation, non-tender and non-distended Extremity normal to inspection and no clubbing, cyanosis or edema Neuro Sensorium / Orientation: awake and alert Psych affect normal Results Lab / Micro Data Attestation: I reviewed the patient's lab results. Result Diagrams: 01/23/23 04:17 01/23/23 04:17 Labs: Laboratory Results - last 24 hr 01/23/23 04:17: WBC 7.6, RBC 5.10, Hgb 16.0, Hct 46.2, MCV 90.6, MCH 31.4, MCHC 34.6, RDW Std Deviation 41.9, RDW Coeff of Isai 12.6, Plt Count 223, MPV 10.1, Immature Gran % (Auto) 0.300, Neut % (Auto) 57.7, Lymph % (Auto) 30.0, Franklin % (Auto) 8.3, Eos % (Auto) 3.0, Baso % (Auto) 0.7, Absolute Neuts (auto) 4.4, Absolute Lymphs (auto) 2.27, Nucleated RBC % 0 01/23/23 04:17: Sodium 139, Potassium 3.7, Chloride 107, Carbon Dioxide 25.0, Anion Gap 7, BUN 12, Creatinine 0.70, Estim Creat Clear Calc 118.77, Est GFR (MDRD) Af Amer 149, Est GFR (MDRD) Non-Af 123, BUN/Creatinine Ratio 17.2, Glucose 101, Calcium 8.4 L, Magnesium 2.1, Troponin I High Sens 87 H EKG Initial EKG: Attestation: I personally reviewed and interpreted this EKG as follows: Prior EKG tracings: available for review EKG Rhythm Intrepretation: Sinus Rhythm Radiology Impression Chest X-Ray 01/23/23 04:35 IMPRESSION: No radiographic evidence of acute cardiopulmonary disease. Electronically Signed: Bryan Negro MD at 4:53 EDT , Assessment & Plan Assessment/Plan (1) ACS (acute coronary syndrome): PLAN: Worrisome symptoms with slightly abnormal troponin. Cardiology has been contacted for the emergency room and advised holding off on anticoagulation, at least at this point in time. We will continue cycle troponins Check an echocardiogram Continue aspirin. Patient received aspirin in the emergency room. Cardiology on consultation. Will defer to them whether or not will be a stress test or cardiac catheterization. If patient does require cardiac catheterization and informed patient is possible may not be able to be performed until the fifth. PLAN: Plan chronic conditions: obesity: pt has actually lost weight which has helped his overall health VTE prophylaxis: LMWH. Charges/Coding Visit Charges Inpatient E&M: 55009 Init Hosp L2
--- NOTE | 2023-01-23 06:37 | EKG12_ITS ---
Test Reason : Blood Pressure : / mmHG Vent. Rate : 052 BPM Atrial Rate : 052 BPM P-R Int : 162 ms QRS Dur : 090 ms QT Int : 412 ms P-R-T Axes : 039 053 062 degrees QTc Int : 383 ms Sinus bradycardia Otherwise normal ECG When compared with ECG of 25-JAN-2023 03:53, MANUAL COMPARISON REQUIRED, DATA IS UNCONFIRMED Confirmed by PHILIPPE RAMOS, BARTOLOME ([id number]), society editor OSMANY LEON ([id number]) on 01/26/2023 8:58:15 AM Referred By: NOHEMI Confirmed By:BARTOLOME PAEZ MD
--- NOTE | 2023-01-23 06:37 | ECHOCS_ITS ---
Reason For Study: CHEST PAIN Procedure This was a 2D Doppler, Color Flow transthoracic echocardiogram. The study was technically difficult. Contrast injection was performed. Exam performed portable in patient room. Left Ventricle Normal LV size. Mild concentric left ventricular hypertrophy. The left ventricular ejection fraction is 65 %. Normal diastololic function. Mid to distal anterior septal mild hypokinesis. Right Ventricle Normal right ventricle. Atria The left and right atria are normal. Mitral Valve The mitral valve is structurally normal. No prolapse or stenosis seen. Tricuspid Valve The tricuspid valve is not well visualized. Aortic Valve Normal aortic valve. Pulmonic Valve The pulmonic valve is not well visualized. Great Vessels Normal sized aortic root. Pericardium/Pleural No pericardial effusion. Medication Diluted definity 3ml given slow IV push to enhance endocardial definition. MMode/2D Measurements & Calculations LVIDd: 4.8 cm IVSd: 1.2 cm Ao root diam: 3.3 cm LVIDs: 3.1 cm LVPWd: 1.3 cm FS: 35.6 % LAV(MOD-bp): 48.2 ml LVAd ap4: 37.8 cm2 LVAd ap2: 42.7 cm2 LAV(MOD-bp) Indexed: 20.3 ml/m2 LVLd ap4: 8.4 cm LVLd ap2: 8.8 cm LAV(MOD-sp2): 48.8 ml EDV(MOD-sp4): 139.5 ml EDV(MOD-sp2): 172.0 ml LAV(MOD-sp4): 50.2 ml EDV(sp4-el): 144.2 ml EDV(sp2-el): 176.5 ml LVAs ap4: 22.1 cm2 LVAs ap2: 22.6 cm2 LVLs ap4: 7.3 cm LVLs ap2: 7.3 cm ESV(MOD-sp4): 54.3 ml ESV(MOD-sp2): 56.1 ml ESV(sp4-el): 57.2 ml ESV(sp2-el): 59.5 ml EF(MOD-sp4): 61.1 % EF(MOD-sp2): 67.4 % EF(sp4-el): 60.4 % SV(MOD-sp4): 85.2 ml SV(MOD-sp2): 116.0 ml SV(sp4-el): 87.0 ml LA A4 area: 18.3 cm2 LA dimension(2D): 3.6 cm RA A4 area: 18.0 cm2 TAPSE: 3.1 cm Time Measurements MV dec time: 0.17 sec Doppler Measurements & Calculations MV E max alfonso: 70.4 cm/sec Lat Peak E' Alfonso: 12.5 cm/sec Med Peak E' Alfonso: 10.5 cm/sec MV A max alfonso: 52.5 cm/sec E/E' lat: 5.6 E/E' med: 6.7 MV E/A: 1.3 MV V2 max: 75.9 cm/sec Ao V2 max: 168.2 cm/sec MV max P.3 mmHg MV dec slope: 409.6 cm/sec2 Ao max P.3 mmHg MV V2 mean: 37.9 cm/sec Ao V2 mean: 116.7 cm/sec MV mean P.72 mmHg Ao mean P.2 mmHg MV V2 VTI: 29.0 cm Ao V2 VTI: 37.5 cm AV (velocity ratio): 0.78 LV V1 max: 113.6 cm/sec LV V1 max P.2 mmHg LV V1 mean P.4 mmHg LV V1 mean: 86.8 cm/sec LV V1 VTI: 29.2 cm ECHO/Echo Complete W/ Contrast Interpretation Summary Mild concentric left ventricular hypertrophy. The left ventricular ejection fraction is 65 %. Mid to distal anterior septal mild hypokinesis. The study was technically difficult. Ordering Physician: Sachin Sanchez Referring Physician: CECILIA CONTRERAS Performed By: Yvette Esquivel RCS
[2023-01-23 06:44] LABS: Troponin-I HS 84 pg/mL (3.0-78.0)
--- NOTE | 2023-01-23 09:32 | PCM.HOSP.N ---
Hospitalist Note Patient chest pain-free with Nitropaste on, troponin trending down. Awaiting cardiology eval. At this time patient no complaints. He is on aspirin, atorvastatin not started due to it being listed as an allergy with complaint of stiff joints. We will obtain lipid panel
--- NOTE | 2023-01-23 09:45 | CASEMGMT ---
JOSE RODRIGUEZ Discharge Planning Assessment: Face to Face with patient for initial transition planning/care coordination assessment.? JOSE RODRIGUEZ introduced self and role at [facility], pt voices understanding.?Pt alert, oriented x4, and agreeable to participating in assessment with at bedside. Care providers, pharmacy,?and demographics verified. ? Admitting Dx: ACS PCP: Maureen Specialists: none Preferred Pharmacy: [facility] Insurance: [facility] Prescription Benefit: yes? Living Will/HPOA: none LNOK: Danielle Living Arrangements: Pt lives with his in a two story home. Pt denies any concerns with navigating steps and states he is independent with ADLs including self care and household tasks. Transportation: Pt drives and denies any concerns with transportation DME/HHC/SNF: Pt denies ? Plan: Pt plan to return home at discharge with the support of his . Pt denies any discharge needs at this time. Will continue to monitor and assist with discharge needs as identified. Veronica Rajput RN CM
[2023-01-23] MEDS: Aspirin E.C. 81 MG Tablet PO (10:14)
[2023-01-23] MEDS: Enoxaparin 40 MG/0.4 ML Syringe SC (10:14)
--- NOTE | 2023-01-23 10:31 | CON.PCM.CA_ITS ---
Assessment & Plan Assessment/Plan (1) Chest pain: PLAN: Pain has been rather atypical lasting 30 seconds to a minute at a time. However has borderline elevation of troponin and the fact that there was some radiation to the left arm is of concern. Will repeat another 2 sets of troponin. If they did not show any significant upward or downward trend, then also depending on his echocardiogram results, I will decide about coronary jose miguel ography versus stress test. Continue aspirin. Start on amlodipine. (2) Elevated troponin: PLAN: See #1 above. HPI Consult Data Date of Consult: 01/23/23 HPI Narrative Reason for Consultation: Chest pain HPI Narrative: 57-year-old gentleman with no significant past medical history. He presented to the emergency room with complaints of anterior chest discomfort. According to the patient, for the past week or so, he has been having anterior chest tightness lasting 15 to 30 seconds. He would get it intermittently with a frequency of once or twice every day. However this morning around 3 AM, he woke up with similar symptoms but lasting about a minute this time before relieving on its own. Per him, he had 3 or 4 episodes before he presented to the emergency room. He describes some radiation down his left shoulder. No associated shortness of breath. No nausea or vomiting. His troponins were noted to be borderline in the emergency room. Subsequently he is being admitted for further evaluation and management. Patient denies any history of chest discomfort with exertion. According to him, even over the last 1 week, he has not been having his symptoms with exertion. No orthopnea. No PND. Occasional ankle edema. Denies any palpitations. [facility] Medical History Diabetes High blood pressure History of stress test Hyperlipemia Irregular heart beat Kidney stones Migraines Psoriasis Home Medications NK 01/23/23 [History Last Taken Unknown] Allergy/AdvReac Type Severity Reaction Status Date / Time codeine Allergy Nausea/vomi Verified 01/23/23 03:41 ting atorvastatin [From Lipitor] AdvReac stiff Verified 01/23/23 03:41 joints nitroglycerin AdvReac Low blood Verified 01/23/23 03:41 pressure Family History Mother COPD (chronic obstructive pulmonary disease) Glaucoma Diabetes Father Myocardial infarction Surgical History History of cholecystectomy Social History Smoking Status: Never smoker Risk Stratification Risk Stratification Applicable: No Objective Data Vital Signs: Vital Signs Temp Pulse Resp BP Pulse Ox O2 Del Method 97.3 F L 68 16 133/79 H 95 Room Air 01/23/23 10:10 01/23/23 10:10 01/23/23 10:10 01/23/23 10:10 01/23/23 10:10 01/23/23 10:10 Oxygen Delivery Method Room Air Weight: 269 lb 12.474 oz Body Mass Index (BMI) 38.7 Lab / Micro Data Attestation: I reviewed the patient's lab results. Result Diagrams: 01/23/23 04:17 01/23/23 04:17 Labs: Laboratory Results - last 24 hr 01/23/23 04:17: WBC 7.6, RBC 5.10, Hgb 16.0, Hct 46.2, MCV 90.6, MCH 31.4, MCHC 34.6, RDW Std Deviation 41.9, RDW Coeff of Isai 12.6, Plt Count 223, MPV 10.1, Immature Gran % (Auto) 0.300, Neut % (Auto) 57.7, Lymph % (Auto) 30.0, Nolan % (Auto) 8.3, Eos % (Auto) 3.0, Baso % (Auto) 0.7, Absolute Neuts (auto) 4.4, Absolute Lymphs (auto) 2.27, Nucleated RBC % 0 01/23/23 04:17: Sodium 139, Potassium 3.7, Chloride 107, Carbon Dioxide 25.0, Anion Gap 7, BUN 12, Creatinine 0.70, Estim Creat Clear Calc 118.77, Est GFR (MDRD) Af Amer 149, Est GFR (MDRD) Non-Af 123, BUN/Creatinine Ratio 17.2, Glucose 101, Calcium 8.4 L, Magnesium 2.1, Troponin I High Sens 87 H 01/23/23 06:24: Troponin I High Sens 84 H Rhythm Strip Rhythm Strip: Sinus Rhythm Cardiology Labs/Tests 01/23/23 04:17: WBC 7.6, RBC 5.10, Hgb 16.0, Hct 46.2, MCV 90.6, MCH 31.4, MCHC 34.6, Plt Count 223, MPV 10.1, Immature Gran % (Auto) 0.300, Neut % (Auto) 57.7, Lymph % (Auto) 30.0, Nolan % (Auto) 8.3, Eos % (Auto) 3.0, Baso % (Auto) 0.7, Absolute Neuts (auto) 4.4, Nucleated RBC % 0 01/23/23 04:17: Sodium 139, Potassium 3.7, Chloride 107, Carbon Dioxide 25.0, Anion Gap 7, BUN 12, Creatinine 0.70, Est GFR (MDRD) Af Amer 149, Est GFR (MDRD) Non-Af 123, BUN/Creatinine Ratio 17.2, Glucose 101, Calcium 8.4 L, Magnesium 2.1 Rhythm: Normal sinus rhythm EKG: Normal sinus rhythm. No ischemic changes. ECHO: Stress Test: Cardiac Cath: PCI: CT Surgery: Holter monitor: EPS: PPM: CXR: Chest CT Scan: Radiography Diagnostic Testing: Radiology Impression Chest X-Ray 01/23/23 04:35 IMPRESSION: No radiographic evidence of acute cardiopulmonary disease. Electronically Signed: Bryan Negro MD at 4:53 EDT ,
[2023-01-23] MEDS: amLODIPine 5 MG Tablet PO (11:01)
[2023-01-23] MEDS: Acetaminophen 325 MG Tablet 650 MG PO ×2 (11:01→23:04)
[2023-01-23 11:53] LABS: Troponin-I HS 93 pg/mL (3.0-78.0)
[2023-01-23 12:04] LABS: Bedside Glucose 80 mg/dL (74-106)
--- NOTE | 2023-01-23 13:48 | CASEMGMT ---
Tertiary list of in-network facilities with pt's insurance: [facility], [facility], [facility], , [facility]
--- NOTE | 2023-01-23 19:48 | EKG12_ITS ---
Test Reason : Pre-Op Blood Pressure : / mmHG Vent. Rate : 061 BPM Atrial Rate : 061 BPM P-R Int : 160 ms QRS Dur : 090 ms QT Int : 414 ms P-R-T Axes : 055 048 072 degrees QTc Int : 416 ms Normal sinus rhythm Normal ECG When compared with ECG of 23-JAN-2023 19:49, MANUAL COMPARISON REQUIRED, DATA IS UNCONFIRMED Confirmed by PHILIPPE RAMOS, BARTOLOME ([id number]), video editor OSMANY LEON ([id number]) on 01/26/2023 8:58:54 AM Referred By: Ashwin Confirmed By:BARTOLOME PAEZ MD
[2023-01-24 04:31] VITALS: BP 150/87; PULSE 54; RESP 16; TEMP 36.4; O2SAT 99
[2023-01-24] MEDS: Nitroglycerin Oint 1 INCH PACKET TD ×2 (04:38→18:57)
[2023-01-24 06:42] LABS: Anion Gap 6 (5-15); BUN 12 mg/dL (7-18); BUN/Creat Ratio 16.2 RATIO (10-20); Calcium,Total 8.7 mg/dL (8.5-10.1); Chloride 106 mmol/L (98-107); Cholesterol 192 mg/dL (200); Creatinine, Serum 0.74 mg/dL (0.70-1.30); EST Glomerular Filtration Rate 115 mL/min (>60); Est Glom Filt Rate - Afr Amer 139 mL/min (>60); Estimated Creatinine Clearance 112.35 ml/min; Glucose 98 mg/dL (74-106); High Density Lipoprotein 45 mg/dL; Potassium 3.9 mmol/L (3.5-5.1); Sodium Level 137 mmol/L (136-145); Triglycerides 143 mg/dL; Very Low Density Lipoprotein 29 mg/dL (5-40)
--- NOTE | 2023-01-24 07:46 | PN.HOSP_ITS ---
Reason for Visit Reason for Visit: Diagnoses Acute ischemic heart disease, unspecified (01/23/23) Chest pain, unspecified (01/23/23) Other specified abnormalities of plasma proteins (01/23/23) Subjective Subjective Reports every time nitro patches and on his chest pain returns. Patient for cath tomorrow Objective Data Objective Data Vital Signs: Vital Signs Temp Pulse Resp BP Pulse Ox O2 Del Method 97.6 F L 54 L 16 150/87 H 99 Room Air 01/24/23 04:31 01/24/23 04:31 01/24/23 04:31 01/24/23 04:31 01/24/23 04:31 01/24/23 04:31 Oxygen Delivery Method Room Air Weight: 122.37 kg Body Mass Index (BMI) 38.7 Intake & Output: Intake and Output for Last 24 Hours 01/22/23 01/23/23 01/24/23 23:59 23:59 23:59 Intake Total 840 / 840 Balance 840 / 840 Lab / Micro Data Result Diagrams: 01/23/23 04:17 01/24/23 06:03 Labs: Laboratory Results - last 24 hr 01/23/23 11:23: Troponin I High Sens 93 H 01/23/23 11:44: POC Glucose 80 01/24/23 06:03: Sodium 137, Potassium 3.9, Chloride 106, Carbon Dioxide 25.0, Anion Gap 6, BUN 12, Creatinine 0.74, Estim Creat Clear Calc 112.35, Est GFR (MDRD) Af Amer 139, Est GFR (MDRD) Non-Af 115, BUN/Creatinine Ratio 16.2, Glucose 98, Calcium 8.7, Triglycerides 143, Cholesterol 192, LDL Cholesterol 118, VLDL Cholesterol 29, HDL Cholesterol 45, TSH 1.70 Radiography Diagnostic Testing: Radiology Impression Echocardiogram 01/23/23 06:37 Interpretation Summary Mild concentric left ventricular hypertrophy. The left ventricular ejection fraction is 65 %. Mid to distal anterior septal mild hypokinesis. The study was technically difficult. Ordering Physician: Sachin Sanchez Referring Physician: CECILIA CONTRERAS Performed By: Yvette Esquivel RCS Rhythm Strip Rhythm Strip: Sinus Rhythm Physical Exam Narrative General: Alert, oriented, no apparent distress HEENT: Atraumatic, normocephalic Eyes: Anicteric, normal conjunctiva, extraocular movements grossly intact Neck: Supple Respiratory: Clear to auscultation bilaterally, normal respiratory effort Cardiovascular: Regular rate and rhythm GI: Soft, nontender, nondistended Extremities: No edema Musculoskeletal: Moving all extremities Neuro: No overt focal neurological deficits Skin: No rashes appreciated Psych: Cooperative Assessment & Plan Assessment/Plan (1) Chest pain: (2) Elevated troponin: PLAN: Plan #Chest pain -With mildly elevated troponin -Seemed atypical in nature however has continued to need nitro patch for chest pain and had wall motion abnormalities on echo -Continue aspirin -Amlodipine started -Cardiac cath tomorrow #Elevated troponin -Minimally elevated troponin that was fairly flat however given echo with wall m otion abnormalities patient will undergo cardiac cath #DVT ppx: Lovenox subcu Anayeli Christopher MD Time spent in the patient's overall evaluation,decision-making process, review of diagnostic data, adjustment of management, discussion with other providers, nursing nursing and ancillary staff involved in patient's care documentation, 30 minutes Charges/Coding Visit Charges Inpatient E&M: 57303 Subs Hosp L2
[2023-01-24 08:35] VITALS: BP 141/73; PULSE 62; RESP 16; TEMP 36.8; O2SAT 95
[2023-01-24] MEDS: amLODIPine 5 MG Tablet PO (08:38)
[2023-01-24] MEDS: Aspirin E.C. 81 MG Tablet PO (08:38)
[2023-01-24] MEDS: Acetaminophen 325 MG Tablet 650 MG PO ×2 (08:38→21:25)
[2023-01-24] MEDS: Enoxaparin 40 MG/0.4 ML Syringe SC (08:38)
--- NOTE | 2023-01-24 11:04 | PN.CARD_ITS ---
Subjective Subjective Patient has had few more episodes of chest discomfort lasting less than a minute. Objective Data Vital Signs: Vital Signs Temp Pulse Resp BP Pulse Ox O2 Del Method 98.2 F 62 16 141/73 H 95 Room Air 01/24/23 08:35 01/24/23 08:35 01/24/23 08:35 01/24/23 08:35 01/24/23 08:35 01/24/23 08:35 Oxygen Delivery Method Room Air Weight: 269 lb 12.474 oz Body Mass Index (BMI) 38.7 Intake & Output: Intake and Output for Last 24 Hours 01/22/23 01/23/23 01/24/23 23:59 23:59 23:59 Intake Total 840 / 840 Balance 840 / 840 Lab / Micro Data Result Diagrams: 01/23/23 04:17 01/24/23 06:03 Labs: Laboratory Results - last 24 hr 01/23/23 11:23: Troponin I High Sens 93 H 01/23/23 11:44: POC Glucose 80 01/24/23 06:03: Sodium 137, Potassium 3.9, Chloride 106, Carbon Dioxide 25.0, Anion Gap 6, BUN 12, Creatinine 0.74, Estim Creat Clear Calc 112.35, Est GFR (MDRD) Af Amer 139, Est GFR (MDRD) Non-Af 115, BUN/Creatinine Ratio 16.2, Glucose 98, Calcium 8.7, Triglycerides 143, Cholesterol 192, LDL Cholesterol 118, VLDL Cholesterol 29, HDL Cholesterol 45, TSH 1.70 Rhythm Strip Rhythm Strip: Sinus Rhythm Cardiology Labs/Tests 01/24/23 06:03: Sodium 137, Potassium 3.9, Chloride 106, Carbon Dioxide 25.0, Anion Gap 6, BUN 12, Creatinine 0.74, Est GFR (MDRD) Af Amer 139, Est GFR (MDRD) Non-Af 115, BUN/Creatinine Ratio 16.2, Glucose 98, Calcium 8.7, Triglycerides 14 3, Cholesterol 192, LDL Cholesterol 118, VLDL Cholesterol 29, HDL Cholesterol 45 Rhythm: EKG: ECHO: Stress Test: Cardiac Cath: PCI: CT Surgery: Holter monitor: EPS: PPM: CXR: Chest CT Scan: Radiography Diagnostic Testing: Radiology Impression Echocardiogram 01/23/23 06:37 Interpretation Summary Mild concentric left ventricular hypertrophy. The left ventricular ejection fraction is 65 %. Mid to distal anterior septal mild hypokinesis. The study was technically difficult. Ordering Physician: Sachin Sanchez Referring Physician: CECILIA CONTRERAS Performed By: Yvette Esquivel RCS Physical Exam Narrative Comfortable. No apparent distress. Heart sounds 1 and 2 are normal. No murmurs or rubs are noted. Chest clear to auscultation bilaterally. Abdomen soft. Alert oriented x3. Trace bilateral ankle edema. Assessment & Plan Assessment/Plan (1) Chest pain: PLAN: Pain is atypical however echocardiogram suggestive of mild wall motion abnormalities. Recommend cardiac catheterization with coronary angiography with possible revascularization. Risks benefits and alternatives discussed with praful berry. He understand these and wishes to proceed. (2) Elevated troponin: PLAN: Minimally elevated without any significant upward or downward trend.
[2023-01-24] MEDS: 0.9% Normal Saline 1,000 ML 15 ML IV (11:22)
[2023-01-24 13:57] VITALS: BP 147/85; PULSE 66; RESP 16; TEMP 36.8; O2SAT 95
[2023-01-24 16:40] VITALS: BP 137/78; PULSE 53; RESP 16; TEMP 36.6; O2SAT 94
[2023-01-24 18:57] VITALS: BP 151/80; PULSE 61
[2023-01-25] VITALS (13 sets, daily range): BP systolic 108–138; BP diastolic 65–88; PULSE 47–65; RESP 16–18; TEMP 36.4–37; O2SAT 94–99
[2023-01-25] MEDS: Nitroglycerin Oint 1 INCH PACKET TD ×2 (00:37→06:35)
--- NOTE | 2023-01-25 05:00 | EKG12_ITS ---
Test Reason : chest pain admit Blood Pressure : / mmHG Vent. Rate : 066 BPM Atrial Rate : 066 BPM P-R Int : 148 ms QRS Dur : 090 ms QT Int : 400 ms P-R-T Axes : 058 059 046 degrees QTc Int : 419 ms Normal sinus rhythm Normal ECG When compared with ECG of 23-JAN-2023 03:38, MANUAL COMPARISON REQUIRED, DATA IS UNCONFIRMED Confirmed by PHILIPPE RAMOS, BARTOLOME ([id number]), marketing editor OSMANY LOEN ([id number]) on 01/26/2023 9:00:00 AM Referred By: Daniel Confirmed By:BARTOLOME PAEZ MD
[2023-01-25] MEDS: Acetaminophen 325 MG Tablet 650 MG PO (05:19)
[2023-01-25] MEDS: 0.9% Saline Lock 10 ML Syringe IV (05:20)
[2023-01-25 06:08] LABS: Absolute Lymphocyte Count 1.88 X10^3/uL (0.83-4.51); Absolute Neutrophil Count 3.6 X10^3/uL (2.0-7.7); Basophil# 0.05 X10^3/uL; Basophil% 0.8 % (0-1); Eosinophil# 0.21 X10^3/uL; Eosinophils% 3.3 % (0-5); Hematocrit 45.7 % (40-54); Hemoglobin 15.6 g/dL (13.0-16.5); Lymphocyte # 1.88 X10^3/ul (0.83-4.51); Lymphocyte % 29.5 % (19-41); Mean Corp Hgb Conc 34.1 g/dL (32-36); Mean Corpuscular Hgb 31.5 pg (27.0-32.0); Mean Corpuscular Volume 92.3 fL (80-94); Mean Platelet Vol. 10.4 fl (6.2-12.0); Monocyte# 0.58 X10^3/uL; Monocyte% 9.1 % (0-10); NRBC Flagged by Analyzer 0 % (0-5); Neutrophil # 3.64 X10^3/uL (2.7-7.7); Platelet Count 211 K/mm3 (150-450); RBC Distribution Width CV 12.7 % (11.6-14.6); RBC Distribution Width SD 43.2 fl (35.1-43.9); Red Blood Count 4.95 M/mm3 (4.6-6.2); White Blood Count 6.4 K/mm3 (4.4-11.0)
[2023-01-25 06:33] LABS: Anion Gap 7 (5-15); BUN 12 mg/dL (7-18); BUN/Creat Ratio 18.9 RATIO (10-20); Calcium,Total 8.4 mg/dL (8.5-10.1); Chloride 108 mmol/L (98-107); Creatinine, Serum 0.63 mg/dL (0.70-1.30); EST Glomerular Filtration Rate 138 mL/min (>60); Est Glom Filt Rate - Afr Amer 166 mL/min (>60); Estimated Creatinine Clearance 131.97 ml/min; Glucose 97 mg/dL (74-106); Potassium 3.7 mmol/L (3.5-5.1); Sodium Level 138 mmol/L (136-145)
[2023-01-25] MEDS: amLODIPine 5 MG Tablet PO (06:35)
[2023-01-25] MEDS: Aspirin E.C. 81 MG Tablet PO (06:35)
--- NOTE | 2023-01-25 08:56 | CL.D_ITS ---
Patient Name: MADINA ROBERTS Study Date: 01/25/2023 Performing: Garth Angeles MD Ht: 70 inches 177.8 cm : 1965 Wt: 269.78 lbs 122.37 kg Age: 57 Gender: male BSA: 2.37 PROCEDURE(S) PERFORMED [id number] CLINICAL PROFILE AND INDICATIONS Indications: Worsening Angina Heart Failure: None Stress/Imaging Stress/Image Study Performed: No CAD Presentations: Unstable angina. CONCLUSIONS Significant disease noted in the first diagonal vessel and mild disease noted in the mid to distal LAD. RECOMMENDATIONS Referred for immediate PCI DESCRIPTION OF PROCEDURE The patient arrived to the procedure lab. The risks and benefits of the procedure as well as a full description of our services here and current unavailability of surgical backup were fully explained to the patient and/or their significant other prior to the catheterization. The Timeout was completed, verifying the correct patient and procedure. The patient's procedural site was prepped and draped in the usual fashion. Local anesthetic was given subcutaneously to right radial region with Lidocaine 2%. Using a modified Seldinger technique, arterial access was obtained via the right radial artery, a 6Fr sheath was inserted. Left Coronary Artery selective angiography was performed in multiple views using a 5 Fr. 4.0 Nilwood catheter. Right Coronary Artery selective angiography was then performed in multiple views using a 5 Fr. JR 5 catheter. Left Ventriculography was performed in CALIX projection using a 5 Fr. Pigtail catheter. LV to AO pullback pressures were then recorded. CORONARY ANGIOGRAPHY DOMINANCE: Right Dominant LEFT HEART ASSESSMENT Left Ventricular Ejection Fraction: by LV Gram 60 % Normal LV wall motion Normal Left Ventricular systolic function LEFT MAIN: Angiographically normal LEFT ANTERIOR DESCENDING ARTERY: Mild disease is noted in the mid to distal segment DIAGONAL 1: Proximal - 80 % Stenosis CIRCUMFLEX ARTERY: Mild luminal irregularities less than 30% RIGHT CORONARY ARTERY: Mild luminal irregularities less than 30% COMPLICATIONS No Complications PROCEDURE MEDICATIONS Fentanyl 50 mcg IV Versed 1 mg IV Versed 1 mg IV Oxygen: 2 L/min via nasal cannula Brilinta 180 mg PO @ 01/25/2023 08:49:20 Heparin given IA 01/25/2023 08:20:01 Verapamil 2.5mg given IA 01/25/2023 08:29:36 SUMMARY OF HEMODYNAMIC DATA Time AIR REST ECG 08:05:05 AO 139/84 (107) SA 08:30:24 LV 121/6, 12 08:45:35 LV 115/3, 13 08:45:41 LV 119/9, 24 08:46:12 LVp 118/9, 28 08:46:20 AOp 106/48 (58) 08:46:25 Signed By Garth Angeles MD On 01/25/2023 08:55:31 Garth Angeles MD
--- NOTE | 2023-01-25 08:56 | PCM.PN.CARD ---
Subjective Subjective Patient seen and evaluated. Objective Data Vital Signs: Vital Signs Temp Pulse Resp BP Pulse Ox O2 Del Method 97.8 F 50 L 16 130/76 H 96 Room Air 01/25/23 06:30 01/25/23 06:30 01/25/23 06:30 01/25/23 06:30 01/25/23 06:30 01/25/23 07:59 Oxygen Delivery Method Room Air Weight: 269 lb 12.474 oz Body Mass Index (BMI) 38.7 Intake & Output: Intake and Output for Last 24 Hours 01/23/23 01/24/23 01/25/23 23:59 23:59 23:59 Intake Total 840 / 840 780.25 / 780.25 Balance 840 / 840 780.25 / 780.25 Lab / Micro Data Result Diagrams: 01/25/23 05:17 01/25/23 05:17 Labs: Laboratory Results - last 24 hr 01/25/23 05:17: WBC 6.4, RBC 4.95, Hgb 15.6, Hct 45.7, MCV 92.3, MCH 31.5, MCHC 34.1, RDW Std Deviation 43.2, RDW Coeff of Isai 12.7, Plt Count 211, MPV 10.4, Immature Gran % (Auto) 0.300, Neut % (Auto) 57.0, Lymph % (Auto) 29.5, [place] % (Auto) 9.1, Eos % (Auto) 3.3, Baso % (Auto) 0.8, Absolute Neuts (auto) 3.6, Absolute Lymphs (auto) 1.88, Nucleated RBC % 0 01/25/23 05:17: Sodium 138, Potassium 3.7, Chloride 108 H, Carbon Dioxide 23.0, Anion Gap 7, BUN 12, Creatinine 0.63 L, Estim Creat Clear Calc 131.97, Est GFR (MDRD) Af Amer 166, Est GFR (MDRD) Non-Af 138, BUN/Creatinine Ratio 18.9, Glucose 97, Calcium 8.4 L Rhythm Strip Rhythm Strip: Sinus Rhythm Cardiology Labs/Tests 01/25/23 05:17: WBC 6.4, RBC 4.95, Hgb 15.6, Hct 45.7, MCV 92.3, MCH 31.5, MCHC 34.1, Plt Count 211, MPV 10.4, Immature Gran % (Auto) 0.300, Neut % (Auto) 57.0, Lymph % (Auto) 29.5, [place] % (Auto) 9.1, Eos % (Auto) 3.3, Baso % (Auto) 0.8, Absolute Neuts (auto) 3.6, Nucleated RBC % 0 01/25/23 05:17: Sodium 138, Potassium 3.7, Chloride 108 H, Carbon Dioxide 23.0, Anion Gap 7, BUN 12, Creatinine 0.63 L, Est GFR (MDRD) Af Amer 166, Est GFR (MDRD) Non-Af 138, BUN/Creatinine Ratio 18.9, Glucose 97, Calcium 8.4 L Rhythm: EKG: ECHO: Stress Test: Cardiac Cath: PCI: CT Surgery: Holter monitor: EPS: PPM: CXR: Chest CT Scan: Physical Exam Const alert, oriented x3 and no apparent distress General Appearance: cooperative HEENT hearing grossly normal bilaterally Head and Scalp: atraumatic Eyes EOMs intact bilaterally Neck General: normal visual inspection Chest inspection of chest normal and palpation of chest normal Resp normal respiratory effort Auscultation: clear to auscultation bilaterally Cardio regular rate, regular rhythm, S1 normal heart sound and S2 normal heart sound Jugular Venous Distention: JVD GI normal to inspection, nondistended, normoactive bowel sounds Extremity normal capillary refill and no pedal edema Peripheral Pulses: Yes pulses 2+ throughout and femoral pulses present Skin no rashes or lesions noted Neuro oriented x3 and CN's II-XII intact bilaterally Psych Appearance: grossly normal and appropriate Assessment & Plan Assessment/Plan (1) ACS (acute coronary syndrome): PLAN: Patient underwent a cardiac catheterization today which demonstrated high-grade proximal diagonal lesion of the left anterior descending artery. The rest of the vessels appear to be mildly diseased. We will recommend PCI to the above vessel.
--- NOTE | 2023-01-25 09:29 | PCM.PN.HOSP ---
Reason for Visit Reason for Visit: Diagnoses Acute ischemic heart disease, unspecified (01/23/23) Chest pain, unspecified (01/23/23) Other specified abnormalities of plasma proteins (01/23/23) Subjective Subjective Chest pain-free after heart catheterization, denies breathing problems Objective Data Objective Data Vital Signs: Vital Signs Temp Pulse Resp BP Pulse Ox O2 Del Method 97.8 F 50 L 16 130/76 H 96 Room Air 01/25/23 06:30 01/25/23 06:30 01/25/23 06:30 01/25/23 06:30 01/25/23 06:30 01/25/23 07:59 Oxygen Delivery Method Room Air Weight: 122.37 kg Body Mass Index (BMI) 38.7 Intake & Output: Intake and Output for Last 24 Hours 01/23/23 01/24/23 01/25/23 23:59 23:59 23:59 Intake Total 840 / 840 780.25 / 780.25 Balance 840 / 840 780.25 / 780.25 Lab / Micro Data Result Diagrams: 01/25/23 05:17 01/25/23 05:17 Labs: Laboratory Results - last 24 hr 01/25/23 05:17: WBC 6.4, RBC 4.95, Hgb 15.6, Hct 45.7, MCV 92.3, MCH 31.5, MCHC 34.1, RDW Std Deviation 43.2, RDW Coeff of Isai 12.7, Plt Count 211, MPV 10.4, Immature Gran % (Auto) 0.300, Neut % (Auto) 57.0, Lymph % (Auto) 29.5, [place] % (Auto) 9.1, Eos % (Auto) 3.3, Baso % (Auto) 0.8, Absolute Neuts (auto) 3.6, Absolute Lymphs (auto) 1.88, Nucleated RBC % 0 01/25/23 05:17: Sodium 138, Potassium 3.7, Chloride 108 H, Carbon Dioxide 23.0, Anion Gap 7, BUN 12, Creatinine 0.63 L, Estim Creat Clear Calc 131.97, Est GFR (MDRD) Af Amer 166, Est GFR (MDRD) Non-Af 138, BUN/Creatinine Ratio 18.9, Glucose 97, Calcium 8.4 L Rhythm Strip Rhythm Strip: Sinus Rhythm Physical Exam Narrative General: Alert, oriented, no apparent distress HEENT: Atraumatic, normocephalic Eyes: Anicteric, normal conjunctiva, extraocular movements grossly intact Neck: Supple Respiratory: Clear to auscultation bilaterally, normal respiratory effort Cardiovascular: Regular rate and rhythm GI: Soft, nontender, nondistended Extremities: No edema Musculoskeletal: Moving all extremities Neuro: No overt focal neurological deficits Skin: No rashes appreciated Psych: Cooperative Assessment & Plan Assessment/Plan (1) Chest pain: (2) Elevated troponin: PLAN: Plan #ACS with coronary artery disease requiring PCI On presentation mildly elevated troponin -Seemed atypical in nature however has continued to need nitro patch for chest pain and had wall motion abnormalities on echo -Cardiac cath 01/25 with high-grade proximal diagonal lesion of LAD status post PCI, rest of vessels with mild disease -Previously did not tolerate atorvastatin due to stiff joints, pravastatin started -Aspirin, Plavix #DVT ppx: Lovenox subcu Anayeli Christopher MD Time spent in the patient's overall evaluation,decision-making process, review of diagnostic data, adjustment of management, discussion with other providers, nursing nursing and ancillary staff involved in patient's care documentation, 30 minutes Charges/Coding Visit Charges Inpatient E&M: 96126 Subs Hosp L2
--- NOTE | 2023-01-25 09:38 | CL.I_ITS ---
Patient Name: MADINA ROBERTS Study Date: 01/25/2023 Performing: Pop Ro MD Ht: 70 inches 177.8 cm : 1965 Wt: 269.78 lbs 122.37 kg Age: 57 Gender: male BSA: 2.37 PROCEDURE(S) PERFORMED IC12-([id number])XAVI W/WO PTCA, SINGLE CORONARY ARTERY CLINICAL PROFILE AND CO-MORBIDITIES Indications: Worsening Angina Heart Failure: None Stress/Imaging Stress/Image Study Performed: No CAD Presentations: Unstable angina. CONCLUSIONS Successful XAVI Mid D1 using Rsolute Wagner 2.5x15 mm, post-dilated using 2.75 mm balloon, optimized proximally using 3.0 mm balloon RECOMMENDATIONS ASA Indefinitley Plavix for at least 12 months DESCRIPTION OF PROCEDURE The patient arrived to the procedure lab. The risks and benefits of the procedure as well as a full description of our services here and current unavailability of surgical backup were fully explained to the patient and/or their significant other prior to the catheterization. The Timeout was completed, verifying the correct patient and procedure. The patient's procedural site was prepped and draped in the usual fashion. Local anesthetic was given subcutaneously to right radial region with Lidocaine 2% Using a modified Seldinger technique,arterial access was obtained via the right radial artery, a 6Fr sheath was inserted. Left Coronary Artery selective angiography was performed in multiple views using a 5 Fr. 4.0 Arthur catheter. Right Coronary Artery selective angiography was then performed in multiple views using a 5 Fr. JR 5 catheter. Left Ventriculography was performed in CALIX projection using a 5 Fr. Pigtail catheter. LV to AO pullback pressures were then recorded.The images were reviewed and options discussed. A decision was then made to proceed with an Intervention, IVUS or other adjunct procedure. XB 3 Guide catheter was inserted and engaged into the LCA. Runthrough Guide wire was advanced to the 1st Diagonal. 2.5x18 Resolute Drug Eluting stent was inserted. Drug Eluting stent was advanced across the lesion in the first diagonal, mid. Angiogram performed post stent deployment. 2.75x15 NC Emerge Balloon catheter was inserted. Balloon catheter was inserted post stent. Balloon catheter was advanced across lesion in the first diagonal, mid. PTCA balloon inflated at 12 atms for 12 secs. PTCA balloon inflated at 18 atms for 12 secs. PTCA balloon inflated at 18 atms for 14 secs. Angiogram performed post balloon dilatation. 3x6 NC Euphora Balloon catheter was inserted. Balloon catheter was inserted post stent. Balloon catheter was advanced across lesion in the first diagonal, mid. PTCA balloon inflated at 14 atms for 20 secs. Angiogram performed post balloon dilatation. INTERVENTION INFORMATION LESION SITE: 1st Diagonal (Mid) Lesion Complexity: Non-High/Non-C, lesion length: 16 mm, culprit lesion: Yes Pre Stenosis: 80 % Pre intervention PRIMITIVO flow: 3 PROCEDURE: Drug Eluting Stent with post dilatation Post Stenosis: 0 % Post intervention PRIMITIVO flow: 3 Lesion Devices: Terumo .014 180cm Runthrough Extra Floppy straight Cordis 6 Fr XB3.0 100cm Guide Catheter Medtronic Resolute [place] RX XAVI 2.5x18 David Sci NC EMERGE MR 2.75x15 BALLOON Medtronic NC EUPHORA RX 3.0x06 BALLOON COMPLICATIONS No Complications PROCEDURE MEDICATIONS Fentanyl 50 mcg IV Versed 1 mg IV Versed 1 mg IV Fentanyl 50 mcg IV Versed 1 mg IV Oxygen: 2 L/min via nasal cannula Brilinta 180 mg PO @ 01/25/2023 08:49:20 Heparin given IA 01/25/2023 08:20:01 Heparin 8000 unit(s) IV 01/25/2023 09:01:05 Nitro 200 mcg IC 01/25/2023 09:12:22 Nitro 200 mcg IC 01/25/2023 09:12:22 Nitro 200 mcg IC 01/25/2023 09:16:51 Nitro 200 mcg IC 01/25/2023 09:23:17 Verapamil 2.5mg given IA 01/25/2023 08:29:36 SUMMARY OF HEMODYNAMIC DATA Time AIR REST ECG 08:05:05 AO 139/84 (107) SA 08:30:24 LV 121/6, 12 08:45:35 LV 115/3, 13 08:45:41 LV 119/9, 24 08:46:12 LVp 118/9, 28 08:46:20 AOp 106/48 (58) 08:46:25 AO 138/75 (99) 09:06:48 Signed By Pop Ro MD On 01/25/2023 09:37:56 Pop Ro MD
--- NOTE | 2023-01-25 09:45 | EKG12_ITS ---
Test Reason : CP Blood Pressure : / mmHG Vent. Rate : 062 BPM Atrial Rate : 062 BPM P-R Int : 152 ms QRS Dur : 090 ms QT Int : 380 ms P-R-T Axes : 032 058 078 degrees QTc Int : 385 ms Normal sinus rhythm Normal ECG When compared with ECG of 23-JAN-2023 08:29, MANUAL COMPARISON REQUIRED, DATA IS UNCONFIRMED Confirmed by PHILIPPE RAMOS, BARTOLOME ([id number]), editor & co founder OSMANY LEON ([id number]) on 01/26/2023 8:59:39 AM Referred By: YANIV Confirmed By:BARTOLOME PAEZ MD
[2023-01-25] MEDS: 0.9% Normal Saline 1,000 ML 150 ML IV (10:15)
[2023-01-25 12:46] LABS: ACT Activated Clotting Time 227 sec (74-137)
--- NOTE | 2023-01-25 14:11 | CRPHASE1 ---
Patient Communication PHII Cardiac Rehab Discussed with Patient:: Yes Guide to Cardiac Rehab Given to Patient:: Yes Cardiac Rehab Facility Choice List Given to Patient:: Yes Choice Program [facility] CR PHII:: Communication Given to CR Choice Program Other:: Communication Given to CR Interventional Nurse:: Pop Ro Phase II Cardiac Rehab:: Yes Sessions:: 36 sessions - 3 days/wk, 12 weeks Cardiac Rehabilitation Info Cardiac Rehabilitation Program Information: Cardiac Rehab The cardiac rehab team at [facility] consists of highly skilled exercise physiologists, nurses, respiratory therapists and physicians working together with you. Our purpose is to help you have a full recovery and achieve the goals you set for yourself. Over the years many of our patients have returned to activities they assumed they would never do again! We can help restore your confidence and motivation to make lifestyle changes that can have a significant impact on your health and quality of life! We can help answer questions and concerns you may have about exercise, lifestyle, medications, diet, stress and anxiety which are common following a hospitalization. WE monitor ECG and vital signs during exercise and discuss your progress with you and report to your physician(s). Cardiac Rehab is proven to help reduce readmissions, improve functional capacity and lower recurrence of problems with your heart. Our Cardiac Rehab program is Certified by the [place] [employer]-V[employer] Pulmonary [employer] (AACVPR) and Accredited by the [place] [employer] through our [facility]. You can contact us at . We invite you to call us with your questions or to get started in our program. If you have other questions or concerns be sure to ask your physician/provider during your follow-up visit. WE look forward to seeing you!
--- NOTE | 2023-01-25 14:11 | CRPH1.INSTRU ---
General Education CAD and cardiac anatomy and function:: Patient communicates acknowledgment Explanation of diagnoses and procedures:: Patient communicates acknowledgment Sign/Symptoms of OK:: Patient communicates acknowledgment Antiplatelet therapy: Patient communicates acknowledgment Smoking Patient Nicotine/Smoking Risk Factors Are:: Never smoked Dyslipidemia Patient Dyslipidemia Risk Factors Are:: Total Cholesterol, Triglycerides, HDL, LDL Recommendations Include:: Lipid profile provided, Reviewed NCEP/ATP guidelines, Therapeutic Lifestyle Change dietary guidelines Dyslipidemia Response Code:: Patient communicates acknowledgment Overweight/Obesity Patient Overweight/Obesity Risk Factors Are:: Obesity - > or = 30 Recommendations Include:: Weight loss of 5-10%, Reduced calorie diet, Exercise 5-7 times/week Overweight/Obesity:: Patient communicates acknowledgment Hypertension Recommendations Include:: BP <130/80 if diabetic, DASH dietary guidelines, Decrease/maintain normal body weight, Moderation of ETOH Hypertension:: Patient communicates acknowledgment Diabetes Patient Diabetes Risk Factors Are:: Elevated blood sugars Recommendations Include:: Maintain fasting blood sugars 70-110 md/dL, Maintain HgbA1c of 6% or less, Monitor blood sugar as prescribed, Diabetic dietary guidelines, Decrease/maintain body weight Diabetes:: Patient communicates acknowledgment Metabolic Syndrome Patient Metabolic Syndrome Risk Factors Are [3 of 5]:: Fasting blood sugar > 100 mg/dL, Waist circumference > 35 [female] or 40 [male], High triglyceride >150, Hypertension, Low HDL <40 [male] or < 50 [female] Recommendations Include:: Patient is diabetic, Encouraged follow-up with Primary Care Physician Metabolic Syndrome Response Code:: Patient communicates acknowledgment Sedentary Patient Sedentary Risk Factors Are:: Lack of regular exercise Recommendations Include:: Aerobic exercise 5-7 times/week for 20-30 minutes continuously, Benefits of regular exercise, Discussed home walking program, Monitored Outpatient Cardiac Rehab Sedentary Response Code:: Patient communicates acknowledgment Stress Recommendations Include:: Identification of stressors, and assessment of coping skills, Stress management techniques Stress Response Code:: Patient communicates acknowledgment
[2023-01-25] MEDS: Clopidogrel Bisulfate 300 MG Tablet PO (17:38)
[2023-01-25] MEDS: Pravastatin 40 MG Tablet PO (21:30)
[2023-01-26 03:30] VITALS: BP 144/78; PULSE 56; RESP 18; TEMP 36.6; O2SAT 96
[2023-01-26 06:55] LABS: Absolute Lymphocyte Count 1.75 X10^3/uL (0.83-4.51); Absolute Neutrophil Count 4.4 X10^3/uL (2.0-7.7); Basophil# 0.03 X10^3/uL; Basophil% 0.4 % (0-1); Eosinophil# 0.26 X10^3/uL; Eosinophils% 3.7 % (0-5); Hematocrit 46.2 % (40-54); Hemoglobin 15.7 g/dL (13.0-16.5); Lymphocyte # 1.75 X10^3/ul (0.83-4.51); Lymphocyte % 24.9 % (19-41); Mean Corpuscular Hgb 31.7 pg (27.0-32.0); Mean Corpuscular Volume 93.1 fL (80-94); Mean Platelet Vol. 10.4 fl (6.2-12.0); Monocyte# 0.55 X10^3/uL; Monocyte% 7.8 % (0-10); NRBC Flagged by Analyzer 0 % (0-5); Neutrophil # 4.42 X10^3/uL (2.7-7.7); Neutrophil % 62.9 % (47-70); Platelet Count 225 K/mm3 (150-450); RBC Distribution Width CV 12.9 % (11.6-14.6); RBC Distribution Width SD 43.9 fl (35.1-43.9); Red Blood Count 4.96 M/mm3 (4.6-6.2)
[2023-01-26 07:21] VITALS: O2SAT 93
[2023-01-26 07:31] LABS: ALB/GLOB Ratio 0.9 RATIO (0.9-2.4); AST(SGOT) 17 U/L (15-37); Alanine Aminotransfer ALT/SGPT 33 U/L (16-61); Albumin, Serum 3.3 g/dL (3.2-5.0); Alkaline Phosphatase 81 U/L (45-117); Anion Gap 7 (5-15); BUN 10 mg/dL (7-18); BUN/Creat Ratio 14.1 RATIO (10-20); Calcium,Total 8.9 mg/dL (8.5-10.1); Chloride 108 mmol/L (98-107); Creatinine, Serum 0.71 mg/dL (0.70-1.30); EST Glomerular Filtration Rate 121 mL/min (>60); Est Glom Filt Rate - Afr Amer 147 mL/min (>60); Globulin 3.7 g/dL (2.2-4.2); Glucose 99 mg/dL (74-106); Potassium 3.8 mmol/L (3.5-5.1); Sodium Level 138 mmol/L (136-145)
[2023-01-26] MEDS: amLODIPine 5 MG Tablet PO (08:16)
[2023-01-26] MEDS: Clopidogrel Bisulfate 75 MG Tablet PO (08:16)
[2023-01-26] MEDS: Enoxaparin 40 MG/0.4 ML Syringe SC (08:16)
[2023-01-26] MEDS: Aspirin E.C. 81 MG Tablet PO (08:16)
[2023-01-26 09:12] VITALS: BP 125/74; PULSE 51; RESP 16; TEMP 36.6; O2SAT 98
--- NOTE | 2023-01-26 09:45 | EKG12_ITS ---
Test Reason : POST PCI Blood Pressure : / mmHG Vent. Rate : 048 BPM Atrial Rate : 048 BPM P-R Int : 172 ms QRS Dur : 098 ms QT Int : 434 ms P-R-T Axes : 060 066 074 degrees QTc Int : 387 ms Sinus bradycardia Otherwise normal ECG When compared with ECG of 25-JAN-2023 11:08, MANUAL COMPARISON REQUIRED, DATA IS UNCONFIRMED Confirmed by PHILIPPE RAMOS, BARTOLOME ([id number]), editor news OSMANY LEON ([id number]) on 01/27/2023 9:43:43 AM Referred By: Confirmed By:BARTOLOME PAEZ MD
--- NOTE | 2023-01-26 12:22 | PCM.DC.SUM ---
Providers Date of Admission: 01/23/23 Date of Discharge: 01/26/23 Primary Care Physician: Dr. Kareem Reddy MD Consultations 01/23/23 06:37 Consult: Cardiology Routine Consulting Provider: Pop Ro Reason for Consult: Chest Pain EMERGENT Consult: No MD Notified: Yes Date Notified: 01/23/23 Time Notified: 05:59 Method of Notification: ED Physician Initiated Reason For Visit: ACS Diagnosis Discharge Diagnosis (1) Chest pain: Status: Acute Code(s): R07.9 - Chest pain, unspecified (2) ACS (acute coronary syndrome): Status: Acute Code(s): I24.9 - Acute ischemic heart disease, unspecified Plan #ACS with coronary artery disease requiring PCI to proximal diagonal of LAD Medications at Discharge Home Medications amlodipine 5 mg tablet 5 mg PO DAILY 30 days #30 tabs 01/26/23 aspirin 81 mg tablet,delayed release 81 mg PO BREAKFAST 30 days #30 tabs 01/26/23 clopidogrel 75 mg tablet 75 mg PO DAILY 30 days #30 tabs 01/26/23 lisinopril 2.5 mg tablet 2.5 mg PO DAILY #30 tabs 01/26/23 pravastatin 40 mg tablet 40 mg PO QHS 30 days #30 tabs 01/26/23 Hospital Course Procedures Cardiac catheterization and Transthoracic echo Summary of Care Provided Minutes Spent on Discharge: 32 Hospital Course: 57-year-old male history of hypertension, kidney stones, migraines, psoriasis presented to [facility] 01/23/2023 with chest pain. He had slightly elevated troponins and cardiology was contacted and advised to hold off on anticoagulation and that he may need stress test or additional evaluation recommended admission. He had chest pain relieved with nitroglycerin and required continued application and echocardiogram showed an EF of 65% with normal diastolic dysfunction but mid to distal anterior septal mild hypokinesis and decision was made to take him to the [facility]. Cardiac cath 01/25 with high-grade proximal diagonal lesion of LAD status post PCI, rest of vessels with mild disease. He was on aspirin, started on Plavix. Has not tolerated atorvastatin in the past so he was placed on pravastatin. On amlodipine as well and beta-riki not started due to low heart rate. On day of discharge patient doing well with no complaints. Discharge instructions as followed: DISCHARGE INSTRUCTIONS PLEASE READ *Please take this with you to your next doctors appointment* -You will need to follow-up with cardiology upon discharge, please call the office of Dr. Angeles upon discharge to schedule your hospital follow-up appointment ) -You have been started on several new medications including aspirin, Plavix, amlodipine, pravastatin -Do only light and easy activities for 2 to 3 days after your stent placement, ask for help with chores and errands while you recover and have someone drive you to your appointments. -Unless your job involves lifting you may return to normal activities within 2 days -Please take your medications as prescribed, do not skip doses -Check your incisions every day for signs of infection which would include redness, swelling, leaking.? It is normal to have a small bruise or bump where the catheter was placed but a bruise that is getting larger is not normal.? Please tell your healthcare team about this.? Please proceed to the emergency department if you have uncontrollable bleeding from the site. -It is important to eat a diet that is low in fat, salt, and cholesterol -You will be set up with cardiac rehab upon discharge, it is important that you follow-up -Okay to shower from the day after your heart catheterization but keep your incision site clean and dry. -Please call your primary care provider's office upon discharge to schedule a hospital follow up within 1 week. -For any concerning signs or symptoms please call 911 or proceed to the nearest emergency department Physical Exam Narrative General: Alert, oriented, no apparent distress HEENT: Atraumatic, normocephalic Eyes: Anicteric, normal conjunctiva, extraocular movements grossly intact Neck: Supple Respiratory: Clear to auscultation bilaterally, normal respiratory effort Cardiovascular: Regular rate and rhythm GI: Soft, nontender, nondistended Extremities: No edema Musculoskeletal: Moving all extremities Neuro: No overt focal neurological deficits Skin: No rashes appreciated Psych: Cooperative Weight / BMI Weight Weight: 122.37 kg Body Mass Index (BMI) 38.7 ABG / Lab / Microbiology Data Result Diagrams: 01/26/23 05:31 01/26/23 05:31 Laboratory: Laboratory Results - last 24 hr 01/25/23 09:30: Activated Clotting Time 227 H 01/26/23 05:31: WBC 7.0, RBC 4.96, Hgb 15.7, Hct 46.2, MCV 93.1, MCH 31.7, MCHC 34.0, RDW Std Deviation 43.9, RDW Coeff of Isai 12.9, Plt Count 225, MPV 10.4, Immature Gran % (Auto) 0.300, Neut % (Auto) 62.9, Lymph % (Auto) 24.9, [place] % (Auto) 7.8, Eos % (Auto) 3.7, Baso % (Auto) 0.4, Absolute Neuts (auto) 4.4, Absolute Lymphs (auto) 1.75, Nucleated RBC % 0 01/26/23 05:31: Sodium 138, Potassium 3.8, Chloride 108 H, Carbon Dioxide 23.0, Anion Gap 7, BUN 10, Creatinine 0.71, Estim Creat Clear Calc 117.10, Est GFR (MDRD) Af Amer 147, Est GFR (MDRD) Non-Af 121, BUN/Creatinine Ratio 14.1, Glucose 99, Calcium 8.9, Total Bilirubin 0.50, AST 17, ALT 33, Alkaline Phosphatase 81, Total Protein 7.0, Albumin 3.3, Globulin 3.7, Albumin/Globulin Ratio 0.9 D/C Instructions Discharge Diet: - (DASH diet) Call your doctor if you observe: Fever of 101 or Higher, Coldness, Increased Pain, Numbness or Tingling, Chest pain and Increased palpitations (irregular heartbeat) Meaningful Use Info Meaningful Use Diagnoses (Choose all that apply): AMI AMI/Post PCI/Angioplasty Aspirin given w/in 24hrs of arrival?: Yes ASA at discharge?: Yes Antiplatelet Therapy at Discharge:: Yes Statins at discharge?: Yes Emanuel/ARB at discharge?: Yes Beta Riki at discharge?: No Reason Beta Riki not ordered:: Drug Interaction Done w/ Acute NM measure.: Yes Documented LVEF (%): 65 Discharge Plan Admission Admit Date/Time: 01/23/23 05:56 Primary Reason for Your Visit: Chest pain Attending Provider: Anayeli Christopher Primary Care Provider: Kareem Reddy Consulting Providers: Pop Ro ; Sachin Sanchez Instructions Patient Instructions: DASH Plan Eat Heart Healthy Food, Coronary Angioplasty Stenting Dc Additional Instructions / Restrictions: DISCHARGE INSTRUCTIONS PLEASE READ *Please take this with you to your next doctors appointment* -You will need to follow-up with cardiology upon discharge, please call the office of Dr. Angeles upon discharge to schedule your hospital follow-up appointment (ph [phone]) -You have been started on several new medications including aspirin, Plavix, amlodipine, pravastatin and lisinopril -Do only light and easy activities for 2 to 3 days after your stent placement, ask for help with chores and errands while you recover and have someone drive you to your appointments. -Unless your job involves lifting you may return to normal activities within 2 days -Please take your medications as prescribed, do not skip doses -Check your incisions every day for signs of infection which would include redness, swelling, leaking. It is normal to have a small bruise or bump where the catheter was placed but a bruise that is getting larger is not normal. Please tell your healthcare team about this. Please proceed to the emergency department if you have uncontrollable bleeding from the site. -It is important to eat a diet that is low in fat, salt, and cholesterol -You will be set up with cardiac rehab upon discharge, it is important that you follow-up -Okay to shower from the day after your heart catheterization but keep your incision site clean and dry. -Please call your primary care provider's office upon discharge to schedule a hospital follow up within 1 week. -For any concerning signs or symptoms please call 911 or proceed to the nearest emergency department Discharge Orders/Prescriptions Prescriptions: New amlodipine 5 mg Tablet 5 mg PO DAILY 30 Days Qty: 30 0RF aspirin 81 mg Tablet,Delayed Release (Dr/Ec) 81 mg PO BREAKFAST 30 Days Qty: 30 0RF pravastatin 40 mg Tablet 40 mg PO QHS 30 Days Qty: 30 0RF clopidogrel 75 mg Tablet 75 mg PO DAILY 30 Days Qty: 30 0RF lisinopril 2.5 mg tablet 2.5 mg PO DAILY Qty: 30 0RF Referrals / Follow Up: Garth Angeles MD [Med Staff - Active Staff] - Within 2 Weeks (Please follow-up with cardiology upon discharge. Please call their office to schedule hospital follow-up appointment upon discharge for a 2 to 4-week follow-up) Kareem Reddy MD [Primary Care Provider] - Within 1 Week Disposition Disposition (needs filled in before D/C Order can be placed): Home, Self Care Charges/Coding Visit Charges Inpatient E&M: 40965 Disch Hosp >30min
--- NOTE | 2023-01-26 12:39 | CASEMGMT ---
RN CM in to discuss discharge needs with patient. Patient denies needs at discharge. Patient had no further questions or concerns at this time.
== END 2023-01-26 13:00 | disposition home or self-care (01) | DRG 247 ==
LOC: ED 05:48 → PCU 06:18
PROVIDERS: Internal Medicine Cardiovascular Disease; Emergency Provider Emergency Medicine; PCP Family Medicine; Visit Provider Internal Medicine
DX: I25.110 Atherosclerotic heart disease of native coronary artery with unstable angina pectoris (principal); E11.9 Type 2 diabetes mellitus without complications; E78.5 Hyperlipidemia, unspecified; I10 Essential (primary) hypertension; R77.8 Other specified abnormalities of plasma proteins; E66.9 Obesity, unspecified; Z68.38 Body mass index [BMI] 38.0-38.9, adult
CPT/HCPCS: 36415; 71046; 80048; 80053; 80061; 82962; 83735; 84443; 84484; 85025; 85347; 92928; 93005; 93306; 93458; 97802; 99152; 99153; 99285; C1725; J7030; Q9957; Q9967; A4216; C1769; C1874; C1887; C8929; C9600; J2405

== ENCOUNTER → 2023-02-05 | Outpatient (CLI) | payer OTHER, SELFPAY ==
--- NOTE | 2023-02-05 07:56 | PCM.CR.HP2 ---
CR - History & Physical - General Arrival date:: 02/05/23 Arrival time:: 08:00 Date of Referral:: 01/25/23 Date of CR Evaluation:: 02/05/23 Referring Physician: Dr. Pop Ro Primary Diagnosis: PCI w/coronary stenting - History of Present Cardiac Event Onset Date: Enter Onset Date of cardiac illnesses in Comment field below Acute Myocardial Infarction within 12 months:: Yes - 01/23/2023 NonSTEMI PTCA or coronary stenting:: Yes - 01/23/2023 75% occulsion and nitro patch was not working anylonger Type of Symptoms:: 2 week prior was having pain, discomfort previous over the years. Was even admitted at one time and stress test and was normal. This time the pains were more frequent so came to the ER, his cardiac enzymes were increasing and was admitted, a small section of his heart was not behaving on ultrasound and was then scheduled for a heart cath. Interventions with present event:: Admitted and scheduled for heart cath. Were there any complications?: None - Sleep Disorder Evaluation Hx of Sleep Apnea: No Do you snore loudly (louder than talking or can be heard through closed doors)?: Yes Do you often feel tired/ fatigued/ sleepy during daytime?: No - trouble falling asleep and staying asleep. Sleep has been very irregular and often wakes feeling tired and fatigued. Has anyone observed you stop breathing during sleep?: No History of Hypertension (for STOP score): Yes STOP Results: Positive - Medications Home Medications: Ambulatory Orders Medication Instructions Recorded amlodipine 5 mg tablet 5 mg PO DAILY 30 days #30 tabs 01/26/23 aspirin 81 mg tablet,delayed 81 mg PO BREAKFAST 30 days #30 tabs 01/26/23 release clopidogrel 75 mg tablet 75 mg PO DAILY 30 days #30 tabs 01/26/23 lisinopril 2.5 mg tablet 2.5 mg PO DAILY #30 tabs 01/26/23 pravastatin 40 mg tablet 40 mg PO QHS 30 days #30 tabs 01/26/23 - Allergies Allergies/Adverse Reactions: Allergies codeine Allergy (Verified 01/23/23 03:41) Nausea/vomiting atorvastatin [From Lipitor] Adverse Reaction (Verified 01/23/23 03:41) stiff joints nitroglycerin Adverse Reaction (Verified 01/23/23 03:41) Low blood pressure Advanced Directives - Advanced Directives Power of Web Application Developer: No Living Will: No Advance Directives Information Provided: Yes Advance Directives on File: No DNR Order?:: No - MOLST See MOLST form: No Past Medical History - Covid-19 Screening Fever: No Unexplained muscle aches: No Current respiratory symptoms: No Upper respiratory infections symptoms: No Gastro-intestinal symptoms: No [id number] symptoms: Yes - Occasional nose bleed a few tiomes per week. Has tested positive for COVID-19 in last 30 days: No Date of testin02/05/23 - Fully vaccinated Had contact w/person w/symptoms or Covid-19 (+) last 14 days: No Has High Risk Exposures ID'd by Health dept/Inf Control team: No 65 years or older:: No Lives in Assisted Living facility:: No Has a chronic lung disease or moderate to severe asthma:: No Has a serious heart condition:: No Immunocompromised:: No Severely obese (Body Mass Index of 40 or higher):: No Diabetic:: No Has chronic kidney disease undergoing dialysis:: No Has liver disease:: No - Past Medical Illness Medical History: Past Medical History (Last Updated 02/05/23 @ 08:13 by Hiro Pruitt, MUSIC EXECUTIVE, [employer], BS) ACS (acute coronary syndrome) I24.9 Atherosclerotic heart disease of [place] coronary artery without angina pectoris Onset Date: 01/25/23 I25.10 Diabetes E11.9 Patient believes related to alot of sugar, etc. following Halloween. Patient has controlled his diet, and believes he is not a diabetic. His recent glucose levels have been normal, and his A1c's have been below 5.5% and 5.4 % for years Elevated troponin R77.8 High blood pressure I10 History of stress test Z92.89 Hyperlipemia E78.5 Irregular heart beat I49.9 Kidney stones N20.0 Migraines G43.909 Psoriasis L40.9 - Past Surgical History Surgical History: Past Surgical History (Last Updated 01/25/23 @ 16:43 by Tamela Herrera) History of cholecystectomy Z90.49 Stented coronary artery Onset Date: 01/25/23 Z95.5 XAVI Mid D1 using Rsolute Wagner 2.5x15 mm Surgical History: appendectomy, - - Cyst from his back was removed. - Family History Summary Family History: Family History (Last Reviewed 01/23/23 @ 06:[address] Sachin Sanchez, DO) Mother COPD (chronic obstructive pulmonary disease) Glaucoma Diabetes Father Myocardial infarction Social History - Smoking History Smoking Status: Never smoker Hx Tobacco Use: No Hx Smoking Exposure: No - Alcohol Use Alcohol Usage: No - Substance Abuse Hx Substance Use: No - Occupation Occupation (List type of work in comments):: Employed Hours worked per day:: 8 - sometimes 8 to 10 hour or more. Works from home. - Hobbies, Recreation, Social Activities Hobbies: Sports, Walking, Other - home renovation Recreational Activities: I am able to engage in most, but not all activities Social Environment - Status Marital Status: - Current Living Arrangements Living Environment:: Spouse - Children How many children do you have?: 3 Do any of your children live nearby?: Yes - One in [place] area - Safety Do you feel safe in your surroundings?: Yes - Assistance Do you need any assistance at home?: No Review of Systems - Review of Systems Hints: Right click = Denies (Slash). Left click = Reports ([place]) Review of Present Symptoms: Reports: Shortness of Breath with Exertion - Some related to being out of shape and over weight., Heart Arrhythmia/Irregularities - history of iregular heart beat, Appetite - Normal, Appetite - Special Diet - DASH Diet since discharged, also uses Fitness Pal to track his eating. Lost 5 pounds since having the stent.. Denies: Shortness of Breath at Rest, Angina, Dizziness/Lightheadedness, Fatigue - feel so much better since had the stent placement in multiple ways, Sleep - Normal, Sexual Changes - Pain Is Patient Pain Free?: Yes Pain Location: none Pain Level: 0/10 Risk Factor Assessment - Vital Signs Temperature: 97.8 F Respiratory Rate: 14 Pulse Ox: 96 Blood Pressure: 130/76 - Pulse Pulse Rate: 50 Pulse Rhythm: Regular - Hypertension Blood Pressure Sitting - Left Arm: 130/76 - Blood Cholesterol/Lipids Total Cholesterol (mg/dL) Goal = less than 200 mg/dL: 192 HDL Cholesterol (mg/dL) Goal = less than 40 mg/dL: 45 LDL Cholesterol (mg/dL) Goal = less than 70 mg/dL: 118 Triglycerides (mg/dL) Goal = less than 150 mg/dL: 143 - Diabetes Nutrition Referral for Diabetes: No - Obesity Height: 5 ft 10 in Weight:: 269 lb 1.92 oz Weight in Pounds: 269.1 lbs Weight Source: [facility] ([facility]) Body Mass Index (BMI): 38.6 Nutritional Referral for Obesity: Yes - Physical Inactivity Physical Inactivity: Reg Exercise 30 min/day, Physically demanding job, Recreational activity - Risk Stratification Risk Guidelines: Lowest Risk: Risk Factor for Smoking, Risk Factor for Diabetes - Glucose 99 A1c 5.1%, Risk Factor for Sedentary Lifestyle, Risk Factor for Depression, Moderate Risk: Risk Factor for Dyslipidemia, Risk Factor for Hypertension - 130/76, Highest Risk: Risk Factor for Obesity - BMI 38 - Family History Family History: Family History (Last Reviewed 01/23/23 @ 06:[address] Sachin Sanchez, DO) Mother COPD (chronic obstructive pulmonary disease) Glaucoma Diabetes Father Myocardial infarction Motivation - Motivation to Participate On a scale of 1 to 10, how prepared are you to commit to attending program?: 9 What do you see as barriers to successfully being able to complete the program?: work and scheduling class times What do you see as the benefits of succesfully completing the program? In other words, what do you hope to get out of participating in the program?: being able to regain some strenght, and motivation to exercise Are there issues you are dealing with that will interfere with completing the program?: Knee pains Do you have a spouse or signficant other, family or friends who will help support you to complete the program?: Yes
--- NOTE | 2023-02-05 07:56 | PCM.CR.ITP ---
Diagnosis - General Information Admitting Diagnosis: NonSTEMI, PCI w/coronary stenting Secondary Diagnosis: HTN, HLD, Obesity, Diabetes Personal Learning Style:: Audio/Visual Barriers to Learning: Vision Impairment Stage of change r/t lifestyle modifications:: Action Gave educational material for:: Treating Heart Disease, Emotions & Heart Disease, Stress Management & Relaxation, Sleep Disorders & Heart Disease, How The Heart Works, What it means to have Heart Disease, How Coronary Artery Disease is Diagnosed, Heart Procedures, What Heart Medications Do, Risk Factors & Modifications, Living an Active Life, Nutrition - Education/Goals Individual Counseling: Initial Assessment: Abnormal Cholesterol Levels, High Blood Pressure, Overweight/Obesity, Diabetes Cardiac Rehabilitation Goals: 1. Maintain the individual as the primary focus of care. 2. To improve the patient's quality of life. 3. Identification of cardiac risk factors and provide cardiac risk factor management. 4. Enhance the psychosocial status of the patient. 5. Reconditioning enough to allow the patient to resume customary activities. 6. Control symptoms of cardiac disease Personal Goals: Initial Assessment: Improve management of stress and emotions, Improve energy level, Participate in home exercise program, Improve knowledge of cardiac disease, Improve muscle strength and endurance, Improve diet and eating habits (eat healthier), Control risk factors (learn risk factor modification) Scale for measuring improvement of personal goals: Enter appropriate number in Comments. 2 = Unchanged. 3 = Slightly Better. 4 = Moderate Improvement. 5 = Met my Goal - Diagnosis & Disease Process Outcomes/Goals: Pt IDs own risk factors & lifestyle modifications by Session 10, Verbalizes symptoms of angina & response by session 3., Pt independently manages Plan/Interventions: Assist Pt to ID & engage in lifestyle modification to reduce CVD risk, Instruct on individual risk factors, Review symptoms of angina & emergency actions, Review secondary diagnosis & identify educational needs. - Safety Referral to Physical Therapy: No Referral to [facility] Case Management: No Fall Risk Assessed:: Yes Assistive Devices:: None Exercise - Initial Assessment - Visit Date of Eval: 02/05/23 Session #:: 0 - pre-cardiac rehab evaluation Mets: Pre-: >7 METS for 30 minutes by discharge - Physician Prescribed Exercise Modalities: Treadmill, Rower, Airdyne Frequency: 3x/week for 12 weeks [36 sessions] Intensity: 60-80% of age predicted maximum heart rate reserve Duration: 30 - 45 minutes Current METSs:: 4.0 Target Heart Rate:: 105-122 Resting Blood Pressure: 130/76 EKG Type: Sinus Bradycardia - Outcomes & Goals Goals:: Verbalizes understanding of THR, RPE & goal METS by session 6, Documents in home exercise log/reports 30 min aerobic 5 day/wk by DC, Demonstrates accurate pulse taking by DC - Intervention & Plan Exercise Program Goals: Instruct on personal THR & RPE, Instruct on MET level & personal MET goal, Show patient to take own pulse /validate performance until accurate, Instruct on home exercise - Physical Activity Home Exercise Physical Activity - Home Exercise: Safe Exercise, Warm-up, Self-monitoring, Cool-Down, Home Exercise > 30 min Daily, Sitting Time <3 hours/daily - Outcomes & Goals Outcomes/Goals: Demonstrates correct Warm-up/exercise Cool-Down (S3) if = 2.5 METs, Verbalizes symptoms of exercise intolerance by Session 3 (S3), Demonstrate safe equipment use (S3) & follows exercise prescrition (6) - Intervention & Plan Plan/Intervention: Instruct warm-up & cool-down if exercising at > 2 METs, Instruct on symptoms of exercise intolerance & actions to take, Instruct & monitor on saf, Assess intial functional capacity & safety risk Nutrition - Initial Assessment - Program Goals Nutrition Program Goals: LDL <100 optimal. 100 - 129 Near optimal. 130 - 159 Borderline High. 160 - 189 High. Total Cholesterol <200 desirable. 200 - 239 Borderline High. >/= 240 High. HDL < 40 Low >/=60 High. Triglycerides <150 desirable. <199 optimal. VlDL 5 - 40. HgbA1C <7%. BMI <25 Patient has diagnosis of Hyperlipidemia (ICD E78)?: Yes - Visit Date of Assessment:: 02/05/23 Session #:: 0 - Pre-cardiac rehab evaluation - Cholesterol/Lipids (Other Core Measures) Triglycerides (mg/dL): 143 Total Cholesterol (mg/dL): 192 LDL Cholesterol (mg/dL): 118 HDL Cholesterol (mg/dL): 45 Determine presence & major risk factors that modify LDL goal: Hypertension or hypertensive medication, Age men > 45 years; women >/= 55 years Outcomes/Goals: Pt IDs own risk factors & lifestyle modifications by Session 10, Verbalizes symptoms of angina & response by session 3., Pt independently manages Intervention/Plan: Instruct on personal lipid levels & lipid goals/NCEP guidelines, Instruct on cholesterol Referral to dietitian:: Yes - Medical Nutrition Therapy - Diabetes (Other Core Measures) Diabetes Type: Not Applicable Fasting blood glucose:: 99 - Patient states the test he had was 1 point over the limit and followed Winsome el of sugar etc. He has controlled his diet and lost weight and has had normal glucose levels and A1c tests have all been below 5.5% for years now. Hgb A1C (4.2 - 6.3): 5.1 Insulin dependent injection/pump?: No Non-Insulin Dependent?: No Do you monitor your blood sugar at home?: No Referral to Diabetic Clinic:: No - Weight Mgt (Other Care) Not Applicable: No Height: 5 ft 10 in Weight:: 269 lb 1.92 oz BMI: 38.6 Diagnosis Overweight/Obesity BMI> 30% ICD-10 E66: Yes Diagnosis High BMI/Morbid Obesity BMI> 35% ICD-10 Z68: Yes Outcomes/Goals: Pt sets, maintains & shows weight loss goal & trend during rehab Intervention/Plan: Instruct on ideal BMI & set weight loss goal w/patient, Assist pt to ID & incorporate diet changes for weight loss by S9, Refer to Structured Weight Loss program as appropriate, Encourage goal of using 250-300dcal per session for weight loss - Healthy Eating Habits Will attend diet classes:: Yes Outcomes/Goals:: Consume diet rich in vegs,fruits,whole grain/high fiber,fish,lean meat, Limit sat/trans fats,cholesterol & added salts & sugars Intervention/Plan:: Assess current eating habits - Education Gave educational materials for:: Relate diabetes to coronary artery disease, Healthy eating Nutrition - 30-Day Assessment Nutrition - 60-Day Assessment Nutrition - 90-Day Assessment Nutrition - Final Assessment Core - Initial Assessment - Visit Date of Eval: 02/05/23 Session #:: 0 - Pre-cardiac rehab evaluation - Medication Compliance Preventative Medication(s):: Aspirin, Clopidogrel/P2Y12 inhibit, Statin/lipid, Beta jace H/O mental health issues: depression, anxiety, or addiction?: No Doesn?t believe in the benefits of treatment?: No Believes medications are unnecessary or harmful?: No Has a concern about medication side effects?: No Expresses concern over the cost of medications?: No Outcomes/Goals: Verbalizes medications,desired effect & common side effects @ DC, Pt self-reports following medication regimen, Keeps card in wallet w/medications listed by DC Interventions/plans: Instruct on medication effects & side effects, Review medication list w/patient every two weeks, Instruct importance of taking meds as ordered & assist problem solving - Tobacco Use Tobacco Use: Non-smoker - Hypertension Hypertension Diagnosis:: Hypertension ICD-10 I10 Resting Blood Pressure:: 130/76 [place] [employer] Hypertension Guidelines: [place] [employer] Hypertension Guidelines. Normal BP Less than 120/80. Elevated BP 120/80. Hypertension Stage 1: BP 130-139/80-89. Hypertesnion Stage 2: BP 140 or higher/90 or higher. Hypertension Crisis: BP higher than 180/120 Outcomes/Goals: Able to verbalize/achieve optimal blood pressure <130/80, Incorporates diet changes & exercise for blood pressure control by DC Interventions/plan: Instruct on optimal blood pressure, hypertension & medications, Instruct on effects of sodium, alcohol, stress, exercise &hypertension - Tobacco Cessation Referral Smoking Cessation Referral:: No Individual Education/Counseling:: No Education Schedule Given:: Yes Core - 30-Day Assessment Core - 60-Day Assessment Core - 90 Day Assessment Core - Final Assessment Psychosocial - Initial Assess - VIsit Date of Eval: 02/05/23 Session #:: 0 - pre-cardiac rehab evaluation Not Applicable: No History of previous Mental disease:: No - Psychosocial Test Tool Used:: [facility] QOL Cardiac, PHQ-9 Questionnaire phq-9 Severity: Severity. 1-4 Minimal Depression. 5-9 Mild Depression. 10-14 Moderate Depression. 15-19 Moderately Sever Depression. 20-27 Severe Depression. Rule: - Referral to Behavioral Health PS - Interventions: Yes Attend Stress Management Classes, No Referral to Behavioral Health if PHQ-9 score >9:, No Referral to [facility], No Referral to Physician if PHQ-9 if score is 5-9: - Outcomes/Goals: See list Psychosocial Outcomes/Goals:: ID's personal stressors & 2 strategies to manage stress by discharge - Intervention/Plan: See List Interventions/Plan:: Assess stressors,coping strategies & signs of derpression on admission, Instruct/assist pt to develop coping & personal stress Mgt strategies, Instruct patient to recognize signs & symptoms of depression, Instruct patient to recog Psychosocial - 30-Day Assess Psychosocial - 60-Day Assess Psychosocial - 90-Day Assess Psychosocial - Final Assessmen Patient Health Questionnaire Initial Assessment 1. Little interest or pleasure in doing things: Not at all 2. Feeling down, depressed, or hopeless: Not at all 3. Trouble falling or staying asleep, or sleeping too much: More than half the days 4. Feeling tired or having little energy: Not at all 5. Poor appetite or overeating: Not at all 6. Feeling bad about yourself -- or that you are a failure or have let yourself or your family down: Several days 7. Trouble concentrating on things, such as reading the newspaper or watching television: Not at all 8. Moving or speaking so slowly that other people could have noticed. Or the opposite - being so fidgety or restless that you have been moving around a lot more than usual: Several days 9. Thoughts that you would be better off , or of hurting yourself in some way: Not at all Total Score: 4 MARLI-Q SV Test - Statements CAD is a disease of the arteries in the heart: False Examples of risk factors for heart disease: True Angina is chest pain or discomfort: False The benefits of resistance training include: True Eating more meat and dairy products: False Anti-platelet medications such as aspirin are important: True The only effective way to manage stress: False An exercise warm-up slowly increases heart rate: True Prepared, processed foods usually have high sodium: True Depression is common after a heart attack: True The statin medications lower cholesterol: True To control blood pressure, lower the amount of sodium: True If someone gets chest discomfort during walking: False Transfats are partially hydrogenated vegetable oils: True Sleep apnea that is not treated increases the risk: I Don't Know To control cholesterol, one should become a vegetarian: False Someone knows if he/she is exercising at the right level: True Diabetes cannot be prevented with exercise & health eating: True Stress is a large risk for heart attack: True A diet that can help lower blood pressure is rich in: True - Total Score Total Correct Responses: 17 Self-Efficacy Initial Assessment We would like to know how confident you are in doing certain activities. Please select your confidence level for:: Select your confidence level for the following using the scale 1-10 where 1 is not at all confident and 10 is totally confident. Your score is the average of all 6 responses. Fatigue: How confident are you that you can keep the fatigue caused by your disease from interfering with the things you want to do? Select Number: 7 Physical Discomfort or Pain: How confident are you that you can keep the physical discomfort or pain of your disease from interfering with the things you want to do? Select Number: 10 Emotional Distress: How confident are you that you can keep the emotional distress caused by your disease from interfering with the things you want to do? Select Number: 9 Other Symptoms or Health Problems: How confident are you that you can keep other symptoms or health problems from interfering with the things you want to do? Select Number: 9 Different Tasks and Activities: How confident are you that you can do the different tasks and activities needed to manage your health condition so as to reduce your need to see a doctor? Select Number: 9 Medication: How confident are you that you can do things other than just taking medication to reduce how much your illness affects your everyday life? Select Number: 10 Total Score:: 9 Nutrition Survey - Nutrition Survey Initial Have you lost >10 lbs over the past 2 months without trying?: No Are you following a special diet at home for diabetes, low fat, or low salt?: Yes Are you interested in meeting with a dietitian for help understanding your diet?: No Do you eat less than 3 meals a day?: No Do you eat fatty meats (sanchez, sausage, ribs, etc), fried foods, desserts, large amounts of salad dressings, margarine, butter, or cheese most days?: No Do you have food allergies? [Enter types in comment field]: No Do you eat in restaurants more than 3 times a week?: No Do you season food with salt, seasoning salt, or garlic salt?: No Do you used canned, boxed, frozen meals, or soups, seasoning packets?: No Total Score:: 1
[2023-02-05 08:39] VITALS: BP 130/76; PULSE 50; RESP 14; TEMP 36.6; O2SAT 96; BMI 38.6
[2023-02-05 09:08] VITALS: BP 130/76; BMI 38.6
== END | disposition home or self-care (01) ==
LOC: CR 07:37
PROVIDERS: PCP Family Medicine; Referring Provider Internal Medicine Cardiovascular Disease; Visit Provider Internal Medicine Cardiovascular Disease
DX: Z95.5 Presence of coronary angioplasty implant and graft (principal)

== ENCOUNTER 2023-02-19 13:00 | Outpatient (RCR) | payer OTHER, SELFPAY ==
[2023-02-05 08:56] VITALS: BMI 38.6
== END 2023-02-19 23:59 ==
LOC: CR 13:00
PROVIDERS: PCP Family Medicine; Referring Provider Internal Medicine Cardiovascular Disease; Visit Provider Internal Medicine Cardiovascular Disease
DX: I24.9 Acute ischemic heart disease, unspecified (principal); R07.9 Chest pain, unspecified; R77.8 Other specified abnormalities of plasma proteins; Z95.5 Presence of coronary angioplasty implant and graft; I25.10 Atherosclerotic heart disease of native coronary artery without angina pectoris
CPT/HCPCS: 93798

== ENCOUNTER 2023-03-22 13:00 | Outpatient (RCR) | payer OTHER, SELFPAY ==
[2023-02-05 09:08] VITALS: BMI 38.6
--- NOTE | 2023-03-08 11:10 | PCM.CR.ITP ---
Exercise - Initial Assessment Visit Session #:: 12 Nutrition - Initial Assessment Weight Mgt (Other Care) Height: 5 ft 10 in Weight:: 287 lb BMI: 41.1 Psychosocial - Initial Assess Target Goals Target Goals Patient Health Questionnaire PHQ-9 Screening 30-Day Re-eval Assessment: 1. Little interest or pleasure in doing things: Not at all 2. Feeling down, depressed, or hopeless: Not at all 3. Trouble falling or staying asleep, or sleeping too much: More than half the days 4. Feeling tired or having little energy: Not at all 5. Poor appetite or overeating: Not at all 6. Feeling bad about yourself -- or that you are a failure or have let yourself or your family down: Several days 7. Trouble concentrating on things, such as reading the newspaper or watching television: Not at all 8. Moving or speaking so slowly that other people could have noticed. Or the opposite - being so fidgety or restless that you have been moving around a lot more than usual: Several days 9. Thoughts that you would be better off , or of hurting yourself in some way: Not at all How difficult have these problems made it for you to do your work, take care of things at home, or get along with other people?: Somewhat difficult Total Score: 4 Self-Efficacy 6-Item Scale 30-Day Re-eval Assessment: We would like to know how confident you are in doing certain activities. Please select your confidence level for: Fatigue Select Number: 7 Physical Discomfort or Pain Select Number: 10 Emotional Distress Select Number: 9 Other Symptoms or Health Problems Select Number: 9 Different Tasks and Activities Select Number: 9 Medication Select Number: 10 Total Score:: 9 Nutrition Survey Nutrition Survey Instructions Scoring Instructions Exercise - 30-day Assessment Visit Date of Eval: 03/08/23 Session #:: 12 Physician Prescribed Exercise Modalities: Rower, Airdyne and NuStep Frequency: 3x/week for 12 weeks [36 sessions] Intensity: 60-80% of age predicted maximum heart rate reserve Current METSs:: 4 Target Heart Rate:: 105-122 Current RPE:: 13-14 Maximum Excercise HR:: 124 Resting Blood Pressure: 132/70 Maximum Exercise Blood Pressure: 150/72 EKG Type: NSR to ST w/rare to occas PAC/PVC's noted. On rower pt in occas mariellecarri w Outcomes & Goals Goals:: Verbalizes understanding of THR, RPE & goal METS by session 6, Documents in home exercise log/reports 30 min aerobic 5 day/wk by DC, Demonstrates accurate pulse taking by DC and Other additional outcome/goals: see below Intervention & Plan Exercise Program Goals: Instruct on personal THR & RPE, Instruct on MET level & personal MET goal, Show patient to take own pulse /validate performance until accurate, Instruct on home exercise and Other additional plan/int 30-day Reassessments 30 day Reassessments:: Progressing Reassessment Notes & Comments:: pulse taking demonstrated Physical Activity Home Exercise Physical Activity - Home Exercise: Safe Exercise, Warm-up, Self-monitoring, Cool-Down, Home Exercise > 30 min Daily and Sitting Time <3 hours/daily Outcomes & Goals Outcomes/Goals: Demonstrates correct Warm-up/exercise Cool-Down (S3) if = 2.5 METs, Verbalizes symptoms of exercise intolerance by Session 3 (S3), Demonstrate safe equipment use (S3) & follows exercise prescrition (6) and Other: See below Intervention & Plan Plan/Intervention: Instruct warm-up & cool-down if exercising at > 2 METs, Instruct on symptoms of exercise intolerance & actions to take, Instruct & monitor on saf, Assess intial functional capacity & safety risk and Other See below 30-day Reassessments 30 day Reassessments:: Progressing Reassessment Notes & Comments:: slow warm up encouraged Nutrition - 30-Day Assessment Program Goals Nutrition Program Goals Patient has diagnosis of Hyperlipidemia (ICD E78)?: Yes Visit Date of Eval: 03/08/23 Session #:: 12 Cholesterol/Lipids (Other Core Measures) Determine presence & major risk factors that modify LDL goal: Hypertension or hypertensive medication, Low HDL cholesterol <40 mg/dL*, Family history of premature CHD in Male < 55 years: female <65 yearsFa and Age men > 45 years; women >/= 55 years Outcomes/Goals: Pt IDs own risk factors & lifestyle modifications by Session 10, Verbalizes symptoms of angina & response by session 3., Pt independently manages and Other Additional Outcomes/Goals: Intervention/Plan: Advocate for lipid panel cholesterol medication if applicable, Instruct on personal lipid levels & lipid goals/NCEP guidelines, Instruct on cholesterol and Other additional plan/int Referral to dietitian:: Yes (medical nutrition therapy) 30-day Reassessments:: Progressing Reassessment Notes & Comments:: risk factors explained Diabetes (Other Core Measures) Diabetes Type: Not Applicable Weight Mgt (Other Care) Height: 5 ft 10 in Weight:: 287 lb BMI: 41.1 Diagnosis Overweight/Obesity BMI> 30% ICD-10 E66: Yes Diagnosis High BMI/Morbid Obesity BMI> 35% ICD-10 Z68: Yes Outcomes/Goals: Pt sets, maintains & shows weight loss goal & trend during rehab and Other additional outcomes/goals Intervention/Plan: Instruct on ideal BMI & set weight loss goal w/patient, Assist pt to ID & incorporate diet changes for weight loss by S9, Refer to Structured Weight Loss program as appropriate, Encourage goal of using 250-300dcal per session for weight loss and Other additional plan/interventions 30 day Reassessments:: Progressing Reassessment Notes & Comments:: pt has lost 6.5 lbs since his first day Healthy Eating Habits Will attend diet classes:: Yes Outcomes/Goals:: Consume diet rich in vegs,fruits,whole grain/high fiber,fish,lean meat, Limit sat/trans fats,cholesterol & added salts & sugars and Other additional outcome/goals: Intervention/Plan:: Assess current eating habits and Other Additional plan/interventions 30-day Reassessments:: Progressing Reassessment Notes & Comments:: pt to attend nutrition class Education Gave educational materials for:: Signs & symptoms of hypoglycemia, Signs & symptoms of hyperglycemia, Relate diabetes to coronary artery disease and Healthy eating Nutrition - 60-Day Assessment Weight Mgt (Other Care) Height: 5 ft 10 in Weight:: 287 lb BMI: 41.1 Core - 30-Day Assessment Visit Date of Eval: 03/08/23 Session #:: 12 Medication Compliance Preventative Medication(s):: Aspirin, Clopidogrel/P2Y12 inhibit, Statin/lipid and Beta jace H/O mental health issues: depression, anxiety, or addiction?: No Doesn?t believe in the benefits of treatment?: No Believes medications are unnecessary or harmful?: No Has a concern about medication side effects?: No Expresses concern over the cost of medications?: No Outcomes/Goals: Verbalizes medications,desired effect & common side effects @ DC, Pt self-reports following medication regimen, Keeps card in wallet w/medications listed by DC and Other additional outcome/goals: Interventions/plans: Instruct on medication effects & side effects, Review medication list w/patient every two weeks, Instruct importance of taking meds as ordered & assist problem solving and Other additional 30-day Reassessments:: Progressing Reassessment Notes & Comments:: encouraged to take his meds Tobacco Use Tobacco Use: Non-smoker Hypertension Hypertension Diagnosis:: Hypertension ICD-10 I10 Resting Blood Pressure:: 132/70 [place] [employer] Hypertension Guidelines Peak Exercise Blood Pressure:: 150/72 Outcomes/Goals: Able to verbalize/achieve optimal blood pressure <130/80, Incorporates diet changes & exercise for blood pressure control by DC and Other additional outcomes/goals Interventions/plan: Instruct on optimal blood pressure, hypertension & medications, Instruct on effects of sodium, alcohol, stress, exercise &hypertension and Other additional plan/interventions 30 day Reassessments:: Progressing Reassessment Notes & Comments:: encouraged to take his meds Tobacco Cessation Referral Smoking Cessation Referral:: No Individual Education/Counseling:: No Education Schedule Given:: Yes Psychosocial - 30-Day Assess VIsit Date of Eval: 03/08/23 Session #:: 12 Not Applicable: No Target Goals Target Goals Psychosocial - 60-Day Assess Target Goals Target Goals Psychosocial - 90-Day Assess Target Goals Target Goals Psychosocial - Final Assessmen Target Goals Target Goals Nutrition - 90-Day Assessment Weight Mgt (Other Care) Height: 5 ft 10 in Weight:: 287 lb BMI: 41.1 Nutrition - Final Assessment Weight Mgt (Other Care) Height: 5 ft 10 in Weight:: 287 lb BMI: 41.1
[2023-03-08 11:25] VITALS: BP 132/70; BMI 41.1
== END 2023-03-22 23:59 ==
LOC: CR 13:00
PROVIDERS: PCP Family Medicine; Referring Provider Internal Medicine Cardiovascular Disease; Visit Provider Internal Medicine Cardiovascular Disease
DX: I24.9 Acute ischemic heart disease, unspecified (principal); R07.9 Chest pain, unspecified; R77.8 Other specified abnormalities of plasma proteins; Z95.5 Presence of coronary angioplasty implant and graft; I25.10 Atherosclerotic heart disease of native coronary artery without angina pectoris
CPT/HCPCS: 93798

== ENCOUNTER 2023-04-21 13:00 | Outpatient (RCR) | payer OTHER, SELFPAY ==
[2023-03-08 11:25] VITALS: BMI 41.1
[2023-03-23 00:39] VITALS: BP 132/70
--- NOTE | 2023-04-07 11:09 | CR.ITP_ITS ---
Nutrition - Initial Assessment Weight Mgt (Other Care) Height: 5 ft 10 in Weight:: 277 lb 8 oz BMI: 39.8 Psychosocial - Initial Assess Target Goals Target Goals Patient Health Questionnaire PHQ-9 Screening 60-Day Re-eval Assessment: 1. Little interest or pleasure in doing things: Not at all 2. Feeling down, depressed, or hopeless: Not at all 3. Trouble falling or staying asleep, or sleeping too much: More than half the days 4. Feeling tired or having little energy: Not at all 5. Poor appetite or overeating: Not at all 6. Feeling bad about yourself -- or that you are a failure or have let yourself or your family down: Several days 7. Trouble concentrating on things, such as reading the newspaper or watching television: Not at all 8. Moving or speaking so slowly that other people could have noticed. Or the opposite - being so fidgety or restless that you have been moving around a lot more than usual: Several days 9. Thoughts that you would be better off , or of hurting yourself in some way: Not at all How difficult have these problems made it for you to do your work, take care of things at home, or get along with other people?: Somewhat difficult Total Score: 4 Self-Efficacy 6-Item Scale 60-Day Re-eval Assessment: We would like to know how confident you are in doing certain activities. Please select your confidence level for: Fatigue Select Number: 7 Physical Discomfort or Pain Select Number: 10 Emotional Distress Select Number: 9 Other Symptoms or Health Problems Select Number: 9 Different Tasks and Activities Select Number: 9 Medication Select Number: 10 Total Score:: 9 Nutrition Survey Nutrition Survey Instructions Scoring Instructions Exercise - 60-day Assessment Visit Date of Eval: 04/07/23 Session #:: 24 Physician Prescribed Exercise Modalities: Rower, Airdyne and [employer] Frequency: 3x/week for 12 weeks [36 sessions] Intensity: 60-80% of age predicted maximum heart rate reserve Duration: 30 - 45 minutes Current METSs:: 4 Target Heart Rate:: 105-122 Current RPE:: 14-15 Maximum Excercise HR:: 132 Resting Blood Pressure: 128/70 Maximum Exercise Blood Pressure: 144/90 EKG Type: NSR W/ 1st degree AV block, intermittent T wave inversion Outcomes & Goals Goals:: Verbalizes understanding of THR, RPE & goal METS by session 6, Documents in home exercise log/reports 30 min aerobic 5 day/wk by DC, Demonstrates accurate pulse taking by DC and Other additional outcome/goals: see below Intervention & Plan Exercise Program Goals: Instruct on personal THR & RPE, Instruct on MET level & personal MET goal, Show patient to take own pulse /validate performance until accurate, Instruct on home exercise and Other additional plan/int 30-day Reassessments 30 day Reassessments:: Progressing Reassessment Notes & Comments:: THR explained Physical Activity Home Exercise Physical Activity - Home Exercise: Safe Exercise, Warm-up, Self-monitoring, Cool-Down, Home Exercise > 30 min Daily and Sitting Time <3 hours/daily Outcomes & Goals Outcomes/Goals: Demonstrates correct Warm-up/exercise Cool-Down (S3) if = 2.5 METs, Verbalizes symptoms of exercise intolerance by Session 3 (S3), Demonstrate safe equipment use (S3) & follows exercise prescrition (6) and Other: See below Intervention & Plan Plan/Intervention: Instruct warm-up & cool-down if exercising at > 2 METs, Instruct on symptoms of exercise intolerance & actions to take, Instruct & monitor on saf, Assess intial functional capacity & safety risk and Other See below 30-day Reassessments 30 day Reassessments:: Progressing Reassessment Notes & Comments:: warm up encouraged Nutrition - 30-Day Assessment Weight Mgt (Other Care) Height: 5 ft 10 in Weight:: 277 lb 8 oz BMI: 39.8 Nutrition - 60-Day Assessment Program Goals Nutrition Program Goals Patient has diagnosis of Hyperlipidemia (ICD E78)?: Yes Visit Date of Eval: 04/07/23 Session #:: 24 Cholesterol/Lipids (Other Core Measures) Determine presence & major risk factors that modify LDL goal: Hypertension or hypertensive medication, Low HDL cholesterol <40 mg/dL*, Family history of premature CHD in Male < 55 years: female <65 yearsFa and Age men > 45 years; women >/= 55 years Outcomes/Goals: Pt IDs own risk factors & lifestyle modifications by Session 10, Verbalizes symptoms of angina & response by session 3., Pt independently manages and Other Additional Outcomes/Goals: Intervention/Plan: Advocate for lipid panel cholesterol medication if applicable, Instruct on personal lipid levels & lipid goals/NCEP guidelines, Instruct on cholesterol and Other additional plan/int 30-day Reassessments:: Progressing Reassessment Notes & Comments:: risk factors discussed Diabetes (Other Core Measures) Diabetes Type: Not Applicable Weight Mgt (Other Care) Height: 5 ft 10 in Weight:: 277 lb 8 oz BMI: 39.8 Diagnosis Overweight/Obesity BMI> 30% ICD-10 E66: Yes Diagnosis High BMI/Morbid Obesity BMI> 35% ICD-10 Z68: Yes Outcomes/Goals: Pt sets, maintains & shows weight loss goal & trend during rehab and Other additional outcomes/goals Intervention/Plan: Instruct on ideal BMI & set weight loss goal w/patient, Assist pt to ID & incorporate diet changes for weight loss by S9, Refer to Structured Weight Loss program as appropriate, Encourage goal of using 250- 300dcal per session for weight loss and Other additional plan/interventions 30 day Reassessments:: Progressing Reassessment Notes & Comments:: pt to attend nutrition class Healthy Eating Habits Will attend diet classes:: Yes Outcomes/Goals:: Consume diet rich in vegs,fruits,whole grain/high fiber,fish,lean meat, Limit sat/trans fats,cholesterol & added salts & sugars and Other additional outcome/goals: Intervention/Plan:: Assess current eating habits and Other Additional plan/interventions 30-day Reassessments:: Progressing Reassessment Notes & Comments:: pt to attend nutrition class Education Gave educational materials for:: Signs & symptoms of hypoglycemia, Signs & symptoms of hyperglycemia, Relate diabetes to coronary artery disease and Healthy eating Core - 60-Day Assessment Visit Date of Eval: 04/07/23 Session #:: 24 Medication Compliance Preventative Medication(s):: Aspirin, Clopidogrel/P2Y12 inhibit, Statin/lipid and Beta jace H/O mental health issues: depression, anxiety, or addiction?: No Doesn?t believe in the benefits of treatment?: No Believes medications are unnecessary or harmful?: No Has a concern about medication side effects?: No Expresses concern over the cost of medications?: No Outcomes/Goals: Verbalizes medications,desired effect & common side effects @ DC, Pt self-reports following medication regimen, Keeps card in wallet w/medications listed by DC and Other additional outcome/goals: Interventions/plans: Instruct on medication effects & side effects, Review medication list w/patient every two weeks, Instruct importance of taking meds as ordered & assist problem solving and Other additional 30-day Reassessments:: Progressing Reassessment Notes & Comments:: encouraged to take meds Tobacco Use Tobacco Use: Non-smoker Hypertension Hypertension Diagnosis:: Hypertension ICD-10 I10 Resting Blood Pressure:: 128/70 [place] [employer] Hypertension Guidelines Peak Exercise Blood Pressure:: 144/90 Outcomes/Goals: Able to verbalize/achieve optimal blood pressure <130/80, Incorporates diet changes & exercise for blood pressure control by DC and Other additional outcomes/goals Interventions/plan: Instruct on optimal blood pressure, hypertension & medications, Instruct on effects of sodium, alcohol, stress, exercise &hypertension and Other additional plan/interventions 30 day Reassessments:: Progressing Reassessment Notes & Comments:: encouraged to take meds Tobacco Cessation Referral Smoking Cessation Referral:: No Individual Education/Counseling:: No Education Schedule Given:: Yes Psychosocial - 30-Day Assess Target Goals Target Goals Psychosocial - 60-Day Assess VIsit Date of Eval: 04/07/23 Session #:: 24 History of previous Mental disease:: No Target Goals Target Goals Psychosocial - 90-Day Assess Target Goals Target Goals Psychosocial - Final Assessmen Target Goals Target Goals Nutrition - 90-Day Assessment Weight Mgt (Other Care) Height: 5 ft 10 in Weight:: 277 lb 8 oz BMI: 39.8 Nutrition - Final Assessment Weight Mgt (Other Care) Height: 5 ft 10 in Weight:: 277 lb 8 oz BMI: 39.8
[2023-04-07 11:24] VITALS: BP 128/70; BMI 39.8
== END 2023-04-22 23:59 ==
LOC: CR 13:00
PROVIDERS: PCP Family Medicine; Referring Provider Internal Medicine Cardiovascular Disease; Visit Provider Internal Medicine Cardiovascular Disease
DX: I25.10 Atherosclerotic heart disease of native coronary artery without angina pectoris (principal); I24.9 Acute ischemic heart disease, unspecified; R07.9 Chest pain, unspecified; R77.8 Other specified abnormalities of plasma proteins; Z95.5 Presence of coronary angioplasty implant and graft
CPT/HCPCS: 93798

== ENCOUNTER 2023-05-10 13:00 | Outpatient (RCR) | payer OTHER, SELFPAY ==
[2023-04-07 11:24] VITALS: BMI 39.8
[2023-04-23 00:19] VITALS: BP 128/70; BP 132/70
--- NOTE | 2023-05-07 07:24 | PCM.CR.ITP ---
Nutrition - Initial Assessment Weight Mgt (Other Care) Height: 5 ft 10 in Weight:: 271 lb BMI: 38.9 Psychosocial - Initial Assess Target Goals Target Goals Patient Health Questionnaire PHQ-9 Screening 90-Day Re-eval Assessment: 1. Little interest or pleasure in doing things: Not at all 2. Feeling down, depressed, or hopeless: Not at all 3. Trouble falling or staying asleep, or sleeping too much: More than half the days 4. Feeling tired or having little energy: Not at all 5. Poor appetite or overeating: Not at all 6. Feeling bad about yourself -- or that you are a failure or have let yourself or your family down: Several days 7. Trouble concentrating on things, such as reading the newspaper or watching television: Not at all 8. Moving or speaking so slowly that other people could have noticed. Or the opposite - being so fidgety or restless that you have been moving around a lot more than usual: Several days 9. Thoughts that you would be better off , or of hurting yourself in some way: Not at all How difficult have these problems made it for you to do your work, take care of things at home, or get along with other people?: Somewhat difficult Total Score: 4 Self-Efficacy 6-Item Scale 90-Day Re-eval Assessment: We would like to know how confident you are in doing certain activities. Please select your confidence level for: Fatigue Select Number: 7 Physical Discomfort or Pain Select Number: 10 Emotional Distress Select Number: 9 Other Symptoms or Health Problems Select Number: 9 Different Tasks and Activities Select Number: 9 Medication Select Number: 10 Total Score:: 9 Nutrition Survey Nutrition Survey Instructions Scoring Instructions Exercise - 90-day Assessment Visit Date of Eval: 05/07/23 Session #:: 34 Physician Prescribed Exercise Modalities: Rower, Airdyne and NuStep Frequency: 3x/week for 12 weeks [36 sessions] Intensity: 60-80% of age predicted maximum heart rate reserve Duration: 30 - 45 minutes Current METSs:: 5.5 Target Heart Rate:: 122-137 Current RPE:: 14 Maximum Excercise HR:: 144 Resting Blood Pressure: 112/70 Maximum Exercise Blood Pressure: 180/80 EKG Type: SB to ST with rare pac, occas pvc, rare couplets, rare bigeminy, and 1 4 be Outcomes & Goals Goals:: Verbalizes understanding of THR, RPE & goal METS by session 6, Documents in home exercise log/reports 30 min aerobic 5 day/wk by DC, Demonstrates accurate pulse taking by DC and Other additional outcome/goals: see below Intervention & Plan Exercise Program Goals: Instruct on personal THR & RPE, Instruct on MET level & personal MET goal, Show patient to take own pulse /validate performance until accurate, Instruct on home exercise and Other additional plan/int 30-day Reassessments 30 day Reassessments:: Met Physical Activity Home Exercise Physical Activity - Home Exercise: Safe Exercise, Warm-up, Self-monitoring, Cool-Down, Home Exercise > 30 min Daily and Sitting Time <3 hours/daily Outcomes & Goals Outcomes/Goals: Demonstrates correct Warm-up/exercise Cool-Down (S3) if = 2.5 METs, Verbalizes symptoms of exercise intolerance by Session 3 (S3), Demonstrate safe equipment use (S3) & follows exercise prescrition (6) and Other: See below Intervention & Plan Plan/Intervention: Instruct warm-up & cool-down if exercising at > 2 METs, Instruct on symptoms of exercise intolerance & actions to take, Instruct & monitor on saf, Assess intial functional capacity & safety risk and Other See below 30-day Reassessments 30 day Reassessments:: Met Nutrition - 30-Day Assessment Weight Mgt (Other Care) Height: 5 ft 10 in Weight:: 271 lb BMI: 38.9 Nutrition - 60-Day Assessment Weight Mgt (Other Care) Height: 5 ft 10 in Weight:: 271 lb BMI: 38.9 Core - 90 Day Assessment Visit Date of Eval: 05/07/23 Session #:: 34 Medication Compliance Preventative Medication(s):: Aspirin, Clopidogrel/P2Y12 inhibit, Statin/lipid and Beta jace H/O mental health issues: depression, anxiety, or addiction?: No Doesn?t believe in the benefits of treatment?: No Believes medications are unnecessary or harmful?: No Has a concern about medication side effects?: No Expresses concern over the cost of medications?: No Outcomes/Goals: Verbalizes medications,desired effect & common side effects @ DC, Pt self-reports following medication regimen, Keeps card in wallet w/medications listed by DC and Other additional outcome/goals: Interventions/plans: Instruct on medication effects & side effects, Review medication list w/patient every two weeks, Instruct importance of taking meds as ordered & assist problem solving and Other additional 30-day Reassessments:: Met Tobacco Use Tobacco Use: Non-smoker Hypertension Hypertension Diagnosis:: Hypertension ICD-10 I10 Resting Blood Pressure:: 112/70 [place] [employer] Hypertension Guidelines Peak Exercise Blood Pressure:: 180/80 Outcomes/Goals: Able to verbalize/achieve optimal blood pressure <130/80, Incorporates diet changes & exercise for blood pressure control by DC and Other additional outcomes/goals Interventions/plan: Instruct on optimal blood pressure, hypertension & medications, Instruct on effects of sodium, alcohol, stress, exercise &hypertension and Other additional plan/interventions 30 day Reassessments:: Met Tobacco Cessation Referral Smoking Cessation Referral:: No Individual Education/Counseling:: No Education Schedule Given:: Yes Psychosocial - 30-Day Assess VIsit Date of Eval: 05/07/23 Session #:: 34 History of previous Mental disease:: No Target Goals Target Goals Psychosocial - 60-Day Assess Target Goals Target Goals Psychosocial - 90-Day Assess Target Goals Target Goals Psychosocial - Final Assessmen Target Goals Target Goals Nutrition - 90-Day Assessment Program Goals Nutrition Program Goals Patient has diagnosis of Hyperlipidemia (ICD E78)?: Yes Visit Date of Eval: 05/07/23 Session #:: 34 Cholesterol/Lipids (Other Core Measures) Determine presence & major risk factors that modify LDL goal: Cigarette smoking, Hypertension or hypertensive medication, Low HDL cholesterol <40 mg/dL*, Family history of premature CHD in Male < 55 years: female <65 yearsFa and Age men > 45 years; women >/= 55 years Outcomes/Goals: Pt IDs own risk factors & lifestyle modifications by Session 10, Verbalizes symptoms of angina & response by session 3., Pt independently manages and Other Additional Outcomes/Goals: Intervention/Plan: Advocate for lipid panel cholesterol medication if applicable, Instruct on personal lipid levels & lipid goals/NCEP guidelines, Instruct on cholesterol and Other additional plan/int 30-day Reassessments:: Met Diabetes (Other Core Measures) Diabetes Type: Not Applicable Weight Mgt (Other Care) Height: 5 ft 10 in Weight:: 271 lb BMI: 38.9 Diagnosis Overweight/Obesity BMI> 30% ICD-10 E66: Yes Diagnosis High BMI/Morbid Obesity BMI> 35% ICD-10 Z68: Yes Outcomes/Goals: Pt sets, maintains & shows weight loss goal & trend during rehab and Other additional outcomes/goals Intervention/Plan: Instruct on ideal BMI & set weight loss goal w/patient, Assist pt to ID & incorporate diet changes for weight loss by S9, Refer to Structured Weight Loss program as appropriate, Encourage goal of using 250-300dcal per session for weight loss and Other additional plan/interventions 30 day Reassessments:: Progressing Reassessment Notes & Comments:: attending nutrition class Healthy Eating Habits Will attend diet classes:: Yes Outcomes/Goals:: Consume diet rich in vegs,fruits,whole grain/high fiber,fish,lean meat, Limit sat/trans fats,cholesterol & added salts & sugars and Other additional outcome/goals: Intervention/Plan:: Assess current eating habits and Other Additional plan/interventions 30-day Reassessments:: Met Nutrition - Final Assessment Weight Mgt (Other Care) Height: 5 ft 10 in Weight:: 271 lb BMI: 38.9
[2023-05-07 07:31] VITALS: BP 112/70; BMI 38.9
== END 2023-05-22 23:59 ==
LOC: CR 13:00
PROVIDERS: PCP Family Medicine; Referring Provider Internal Medicine Cardiovascular Disease; Visit Provider Internal Medicine Cardiovascular Disease
DX: I24.9 Acute ischemic heart disease, unspecified (principal); R07.9 Chest pain, unspecified; R77.8 Other specified abnormalities of plasma proteins; Z95.5 Presence of coronary angioplasty implant and graft; I25.10 Atherosclerotic heart disease of native coronary artery without angina pectoris
CPT/HCPCS: 93798

== ENCOUNTER 2023-06-04 12:04 | Emergency (ER) | payer OTHER, SELFPAY ==
[2023-05-07 07:31] VITALS: BMI 38.9
[2023-06-04 12:05] VITALS: BP 148/92; PULSE 55; RESP 16; TEMP 36.2; O2SAT 98
[2023-06-04 12:12] VITALS: BMI 23.9
--- NOTE | 2023-06-04 12:38 | EKG12_ITS ---
Test Reason : Blood Pressure : / mmHG Vent. Rate : 056 BPM Atrial Rate : 056 BPM P-R Int : 150 ms QRS Dur : 080 ms QT Int : 396 ms P-R-T Axes : 049 068 043 degrees QTc Int : 382 ms Sinus bradycardia Otherwise normal ECG Confirmed by PHILIPPE RAMOS, BARTOLOME ([id number]), assistant editor LYUBOV CROWLEY ([id number]) on 06/08/2023 8:04:26 AM Referred By: Branden Confirmed By:BARTOLOME PAEZ MD
[2023-06-04 12:55] LABS: Absolute Lymphocyte Count 1.58 X10^3/uL (0.83-4.51); Absolute Neutrophil Count 4.2 X10^3/uL (2.0-7.7); Basophil# 0.05 X10^3/uL; Basophil% 0.7 % (0-1); Eosinophil# 0.17 X10^3/uL; Eosinophils% 2.5 % (0-5); Hemoglobin 14.7 g/dL (13.0-16.5); Lymphocyte # 1.58 X10^3/ul (0.83-4.51); Lymphocyte % 23.6 % (19-41); Mean Corp Hgb Conc 33.4 g/dL (32-36); Mean Corpuscular Hgb 30.6 pg (27.0-32.0); Mean Corpuscular Volume 91.7 fL (80-94); Mean Platelet Vol. 10.6 fl (6.2-12.0); Monocyte# 0.65 X10^3/uL; Monocyte% 9.7 % (0-10); NRBC Flagged by Analyzer 0 % (0-5); Neutrophil # 4.23 X10^3/uL (2.7-7.7); Neutrophil % 63.4 % (47-70); Platelet Count 203 K/mm3 (150-450); RBC Distribution Width CV 12.6 % (11.6-14.6); RBC Distribution Width SD 42.3 fl (35.1-43.9); White Blood Count 6.7 K/mm3 (4.4-11.0)
[2023-06-04 13:04] VITALS: BP 122/56; PULSE 78; RESP 18; O2SAT 99
[2023-06-04 13:09] LABS: Anion Gap 5 (5-15); BUN 15 mg/dL (7-18); BUN/Creat Ratio 22.2 RATIO (10-20); Calcium,Total 8.7 mg/dL (8.5-10.1); Chloride 108 mmol/L (98-107); Creatinine, Serum 0.68 mg/dL (0.70-1.30); EST Glomerular Filtration Rate 128 mL/min (>60); Est Glom Filt Rate - Afr Amer 155 mL/min (>60); Estimated Creatinine Clearance 120.77 ml/min; Glucose 91 mg/dL (74-106); Potassium 3.8 mmol/L (3.5-5.1); Sodium Level 138 mmol/L (136-145); Troponin-I HS 69 pg/mL (3.0-78.0)
--- NOTE | 2023-06-04 13:18 | RAD_ITS ---
STUDY: X-RAY CHEST REASON FOR EXAM: Male, 58 years old. Chest pain TECHNIQUE: AP portable view of the chest. COMPARISON: January 23, 2023 FINDINGS: The lungs are clear and expanded. There is no demonstrated pleural abnormality. Normal size heart. Normal mediastinum and alexia. Normal visualized pulmonary arteries. Normal visualized aortic arch and descending thoracic aorta. There are diffuse degenerative changes of the visualized thoracic spine. Normal visualized ribs, clavicles, and shoulders. There is no demonstrated abnormality of the visualized soft tissue structures of the upper abdomen. RAD/Chest 1 View (Portable) IMPRESSION: Degenerative changes, as described above. No demonstrated acute cardiopulmonary process. Electronically Signed: Robbie Stoner MD at 14:22 EDT ,
--- NOTE | 2023-06-04 13:39 | ED.VIS.CHEST ---
HPI History of Present Illness Chief Complaint: Chest Pain Narrative Narrative: 58-year-old male with chest pain. He describes it as a dull pressure retrosternally. He states that he has had this in the past and he had an MO in January and a cardiac stent done by Dr. Angeles. he states that at that he was having short episodes of chest pain which lasted like 30 seconds that were coming and going at this time he states that the chest pain is much milder but it is lasting for hours. He states maybe 1 or 2 hours. He had about 3 episodes a day for the last 2 days. The last episode of pain he had was today from 8 AM to noon which is now resolved. Again he describes it as light/dull pressure. He has not been short of breath. He has some generalized weakness but does not have lightheadedness, nausea, dizziness. He states he has not been diaphoretic. Patient states that other than having COVID about 4 weeks ago he has been well. He recovered from it without sequela. He states he was on his way to [place] today and got in the car but due to the pain he decided to turn around and come back. 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) Diabetes Elevated troponin High blood pressure History of stress test Hyperlipemia Irregular heart beat Kidney stones Migraines Non-STEMI (non-ST elevated myocardial infarction) Psoriasis Home Medications cholecalciferol (vitamin D3) 25 mcg (1,000 unit) capsule 25 mcg PO DAILY 02/15/23 [History Last Taken Unknown] multivitamin (Daily Multi-Vitamin tablet) 1 tab PO DAILY 02/15/23 [History Last Taken Unknown] amlodipine 5 mg tablet 5 mg PO DAILY #90 tabs 02/16/23 [Rx Last Taken Unknown] aspirin 81 mg tablet,delayed release 81 mg PO BREAKFAST #90 tabs 02/16/23 [Rx Last Taken Unknown] clopidogrel 75 mg tablet 75 mg PO DAILY #90 tabs 02/16/23 [Rx Last Taken Unknown] lisinopril 2.5 mg tablet 2.5 mg PO DAILY #90 tabs 02/16/23 [Rx Last Taken Unknown] pravastatin 40 mg tablet 40 mg PO QHS #90 tabs 02/16/23 [Rx Last Taken Unknown] metoprolol succinate 25 mg tablet,extended release 24 hr 25 mg PO DAILY #90 tabs 05/27/23 [Rx Last Taken Unknown] Allergy/AdvReac Type Severity Reaction Status Date / Time codeine Allergy Nausea/vomi Verified 06/04/23 12:06 ting atorvastatin [From Lipitor] AdvReac stiff Verified 06/04/23 12:06 joints nitroglycerin AdvReac Low blood Verified 06/04/23 12:06 pressure Family History Mother COPD (chronic obstructive pulmonary disease) Glaucoma Diabetes Father Myocardial infarction Surgical History History of cholecystectomy History of coronary artery stent placement Stented coronary artery (01/25/23) Social History Smoking Status: Never smoker ROS ROS ED Constitutional Constitutional ED: Denies chills, fever(s) or sweats Eyes Eyes: Denies blurry vision or change in vision ENT ENT ED: Denies ear pain or sore throat Cardiovascular Cardiovascular: Reports chest pain; Denies palpitations or racing heartbeat Respiratory/Chest Respiratory/Chest: Denies cough, dyspnea or sputum Gastrointestinal Gastrointestinal: Denies abdominal pain, constipation, diarrhea, nausea or vomiting Genitourinary Genitourinary ED: Denies dysuria, hematuria or urinary frequency Musculoskeletal Musculoskeletal: Denies arthralgias, myalgias or neck pain Integumentary Denies abscess, Abrasions or rash Neurologic Neurologic: Denies headache(s), paresthesias or weakness Psychiatric Psychiatric: Denies anxiety, depression, suicidal ideation or suicidal thoughts Endocrine Endocrinology: Denies polydipsia or polyuria EXAM Physical Exam Const Vital Signs: 06/04/23 12:05 06/04/23 12:12 06/04/23 12:38 Temperature 97.2 F L Temperature Source Temporal Pulse Rate 55 L Respiratory Rate 16 Respiratory Pattern Normal Blood Pressure 148/92 H Blood Pressure Mean 110 Pulse Ox 98 Oxygen Delivery Method Room Air Room Air 06/04/23 13:04 Temperature Temperature Source Pulse Rate 78 Respiratory Rate 18 Respiratory Pattern Blood Pressure 122/56 H Blood Pressure Mean 78 Pulse Ox 99 Oxygen Delivery Method Room Air Positive well nourished General Appearance ED: NAD; Negative for pallor HEENT Reports moist mucous membranes normocephalic Eyes PERRL and EOMs intact bilaterally Chest Wall inspection of chest normal and palpation of chest normal Resp normal respiratory effort and clear to auscultation bilaterally Auscultation: Negative for rales, rhonchi or wheezes Cardio regular rhythm Rate: bradycardia Extremity normal to inspection Neuro oriented x3 and CN's II-XII intact bilaterally Sensorium / Orientation: alert Motor Exam: strength 5/5 throughout Psych mental status grossly normal Skin no rashes or lesions noted General Skin Exam: Negative for jaundice or pallor MDM MDM MDM Narrative Medical decision making narrative: 58-year-old male with chest pain. Differential includes but is not limited to ACS, PE, aortic dissection, pneumonia, pneumothorax, muscle strain, costochondritis. Unlikely to be aortic dissection is not having severe pain and is not ripping or tearing. Patient is PERC negative so unlikely to be PE. Patient is equal/breath sounds show I do not think he has a pneumothorax. CBC will be obtained to assess white blood cell count, hemoglobin, platelets. BMP to assess renal function and electrolytes. High-sensitivity troponin and EKG to assess for ischemia. Chest x-ray to rule out pneumonia or other etiology. Patient is currently pain-free. CBC returned with a normal white blood cell count, hemoglobin, platelets. BMP shows normal renal function and electrolytes. High-sensitivity troponin is 69. Patient states that when he was admitted last time for stenting it was in the 80s. EKG on my interpretation shows a sinus rhythm at 56 bpm without sign of ischemic change. Chest x-ray on my interpretation is no acute process. We will obtain a delta troponin. Delta troponin is 66. Patient remained stable. No return of chest pain. I spoke with Dr. Angeles who states that the patient is stable for outpatient follow-up. We will plan to do a stress test on an outpatient basis. He recommended I have him call the office. Patient amenable to this plan. Discharged stable condition. Impression: 1. Chest pain Lab Data Attestation: I reviewed the patient's lab results. Labs: Laboratory Results - last 24 hr 06/04/23 06/04/23 12:45 14:45 WBC 6.7 RBC 4.80 Hgb 14.7 Hct 44.0 MCV 91.7 MCH 30.6 MCHC 33.4 RDW Std Deviation 42.3 RDW Coeff of Isai 12.6 Plt Count 203 MPV 10.6 Immature Gran % (Auto) 0.100 Neut % (Auto) 63.4 Lymph % (Auto) 23.6 K[place]haw % (Auto) 9.7 Eos % (Auto) 2.5 Baso % (Auto) 0.7 Absolute Neuts (auto) 4.2 Absolute Lymphs (auto) 1.58 Nucleated RBC % 0 Sodium 138 Potassium 3.8 Chloride 108 H Carbon Dioxide 25.0 Anion Gap 5 BUN 15 Creatinine 0.68 L Estim Creat Clear Calc 120.77 Est GFR (MDRD) Af Amer 155 Est GFR (MDRD) Non-Af 128 BUN/Creatinine Ratio 22.2 H Glucose 91 Calcium 8.7 Troponin I High Sens 69 66 Radiography Diagnostic Testing: Clinical Impression(s) from Imaging Studies Chest X-Ray 06/04/23 13:18 IMPRESSION: Degenerative changes, as described above. No demonstrated acute cardiopulmonary process. Electronically Signed: Robbie Stoner MD at 14:22 EDT , Discharge Plan Triage Chief Complaint: Chest Pain ED Provider: Cristino Grace Dx/Rx/DC Orders Instructions: ED Chest Pain, Noncardiac Prescriptions: No Action cholecalciferol (vitamin D3) 25 mcg (1,000 unit) capsule 25 mcg PO DAILY multivitamin [Daily Multi-Vitamin] Tablet 1 tab PO DAILY metoprolol succinate 25 mg tablet extended release 24 hr 25 mg PO DAILY Qty: 90 3RF clopidogrel 75 mg tablet 75 mg PO DAILY Qty: 90 3RF amlodipine 5 mg tablet 5 mg PO DAILY Qty: 90 3RF aspirin 81 mg tablet,delayed release (DR/EC) 81 mg PO BREAKFAST Qty: 90 3RF lisinopril 2.5 mg tablet 2.5 mg PO DAILY Qty: 90 3RF pravastatin 40 mg tablet 40 mg PO QHS Qty: 90 3RF Primary Care Provider: Kareem Reddy Referrals: Garth Angeles MD [Med Staff - Active Staff] - 3-5 Days Kareem Reddy MD [Primary Care Provider] - Disposition Disposition: Home, Self Care
[2023-06-04 15:01] LABS: Troponin-I HS 66 pg/mL (3.0-78.0)
[2023-06-04 15:42] VITALS: BP 121/65; PULSE 47; RESP 13; O2SAT 98
== END 2023-06-04 15:43 | disposition home or self-care (01) ==
PROVIDERS: Emergency Provider Student in an Organized Health Care Education/Training Program; PCP Family Medicine; Visit Provider Student in an Organized Health Care Education/Training Program
DX: R07.9 Chest pain, unspecified (principal); E11.9 Type 2 diabetes mellitus without complications; E78.5 Hyperlipidemia, unspecified; I25.10 Atherosclerotic heart disease of native coronary artery without angina pectoris
CPT/HCPCS: 36415; 71045; 80048; 84484; 85025; 93005; 99283; A4216

== ENCOUNTER 2023-06-17 06:11 | Outpatient (CLI) | payer OTHER, SELFPAY ==
[2023-05-07 07:31] VITALS: BMI 38.9
--- NOTE | 2023-06-17 08:47 | STRESSREP_ITS ---
Stress Test Report exercise myocardial perfusion stress test. 58-year-old man with a history of coronary artery disease Stress protocol: Resting EKG demonstrates sinus bradycardia with a rate of 46 bpm resting blood pressure is 112/70 mmHg. The patient exercised according to the regular Monster protocol for a total duration of 8 minutes completing 2 minutes into stage III of the Monster protocol, attaining a maximum heart rate of 155 bpm which was 96% of maximum predicted heart rate; the maximum workload was 10.4 metabolic equivalents. At rest there were no ST or T wave changes noted to suggest ischemia and at peak exercise upsloping ST changes only were noted which did not meet the criteria for ischemia. No clinical angina was noted the test was termi nated due to the target heart rate being achieved/fatigue. The peak blood pressure was 172/80 mmHg. Rate-pressure product was 21,600. While he was waiting in the waiting room for his next set of images he apparently got diaphoretic and subsequently passed out. When he was hooked to the monitors he was noted to be bradycardic and hypotensive. He denied any chest pain. Myocardial perfusion protocol. 15.0 mCi of technetium 99m sestamibi was injected at rest. The patient exercised according to regular Monster protocol for total duration of 8 minutes and at peak exercise 45.0 mCi of technetium 99m sestamibi was injected stress images were obtained stress and rest images were reconstructed in comparing the short axis vertical long and horizontal long axis. Gated images were also obtained. Perfusion SPECT analysis: Review of the stress images demonstrate normal uptake of tracer noted in all areas of the myocardium. The resting images similarly demonstrate normal uptake of tracer noted in all areas of the myocardium. No areas of reversibility are noted to suggest ischemia no previous infarct was noted. Gated SPECT analysis: The gated ejection fraction is 60%. Conclusion: Normal exercise myocardial perfusion stress test at a high workload Preserved ejection fraction. Likely post exercise vasovagal syncope.
--- NOTE | 2023-06-17 09:22 | CON.PCM.CA_ITS ---
Assessment & Plan Assessment/Plan (1) Syncope: PLAN: He presents with a syncopal episode which is possibly vasovagal but could be pain related. It is not clear how much of this may be an anginal equivalent. My recommendation will be to evaluate this with a left heart catheterization and depending on the findings further recommendations will be made. (2) History of coronary artery stent placement: PLAN: She is status post coronary artery disease status post previous angioplasty and stenting. My recommendation is to continue with the current medical therapy and reevaluate his coronary anatomy depending on the findings further recommendations will be made. Thank you for allowing me to participate in the care of your patient. Please don't hesitate to call if any issues arise. HPI Consult Data Date of Consult: 06/17/23 HPI Narrative HPI Narrative: MADINA ROBERTS, is a 58 M who presents for a stress test and developed chest pain as well as a syncopal event immediately post stress. He presented to the emergency room in January of this year with complaints of anterior chest discomfort.? According to the patient, he had been having intermittent chest tightness for the week prior to his hospital visit, and it started to increase in frequency with some radiation down his left shoulder.? His troponins were noted to be borderline in the emergency room. He was admitted, and underwent a cardiac catheterization on 01/25/2023 which demonstrated significant disease noted in the first diagonal vessel and mild disease noted in the mid to distal LAD. He underwent a XAVI to the first diagonal. His echocardiogram at that time demonstrated an ejection fraction of 65% with mid to distal anterior septal mild hypokinesis. He continues to complain of chest discomfort intermittently and actually abandoned a trip to [place] a few days ago and came to the emergency room. He was evaluated treated and discharged and underwent a stress test this morning. There was no obvious ischemia noted during the stress test but he developed chest pain and then a syncopal episode immediately afterwards. After discussion with him he is very concerned that this may be coronary in origin because it was very similar to what he presented with initially. It was decided to admit him and perform an urgent cardiac catheterization due to his syncopal episode which was witnessed. [facility] Medical History ACS (acute coronary syndrome) Atherosclerotic heart disease of [place] coronary artery without angina pectoris (01/25/23) Diabetes Elevated troponin High blood pressure History of stress test Hyperlipemia Irregular heart beat Kidney stones Migraines Non-STEMI (non-ST elevated myocardial infarction) Psoriasis Home Medications cholecalciferol (vitamin D3) 25 mcg (1,000 unit) capsule 25 mcg PO DAILY 02/15/23 [History Last Taken Unknown] multivitamin (Daily Multi-Vitamin tablet) 1 tab PO DAILY 02/15/23 [History Last Taken Unknown] amlodipine 5 mg tablet 5 mg PO DAILY #90 tabs 02/16/23 [Rx Last Taken Unknown] aspirin 81 mg tablet,delayed release 81 mg PO BREAKFAST #90 tabs 02/16/23 [Rx Last Taken Unknown] clopidogrel 75 mg tablet 75 mg PO DAILY #90 tabs 02/16/23 [Rx Last Taken Unknown] lisinopril 2.5 mg tablet 2.5 mg PO DAILY #90 tabs 02/16/23 [Rx Last Taken Unknown] pravastatin 40 mg tablet 40 mg PO QHS #90 tabs 02/16/23 [Rx Last Taken Unknown] metoprolol succinate 25 mg tablet,extended release 24 hr 25 mg PO DAILY #90 tabs 05/27/23 [Rx Last Taken Unknown] Allergy/AdvReac Type Severity Reaction Status Date / Time codeine Allergy Nausea/vomi Verified 06/04/23 12:06 ting atorvastatin [From Lipitor] AdvReac stiff Verified 06/04/23 12:06 joints nitroglycerin AdvReac Low blood Verified 06/04/23 12:06 pressure Family History Mother COPD (chronic obstructive pulmonary disease) Glaucoma Diabetes Father Myocardial infarction Surgical History History of cholecystectomy History of coronary artery stent placement Stented coronary artery (01/25/23) Social History Smoking Status: Never smoker ROS Constitutional Constitutional: Denies fever(s) or weight loss Eyes Eyes: Reports systems reviewed and no addt'l complaints, except as documented ENT HEENT: Reports systems reviewed and no addt'l complaints, except as documented Cardiovascular Cardiovascular: Reports chest pain at rest and syncope; Denies chest pain with activity, dyspnea at rest, dyspnea on exertion, edema, palpitations or paroxysmal nocturnal dyspnea Respiratory/Chest Respiratory/Chest: Denies dyspnea on exertion, productive cough, shortness of b reath at rest or shortness of breath with exertion Gastrointestinal Gastrointestinal: Denies change in bowel habits, nausea, vomiting or weight changes Genitourinary Genitourinary: Denies difficulty urinating Musculoskeletal Musculoskeletal: Denies joint stiffness or muscle weakness Integumentary Integumentary: Denies lesions Neurologic Neurologic: Denies dizziness or syncope Psychiatric Psychiatric: Denies anxiety Endocrine Endocrinology: Denies excessive sweating or fatigue Hematologic/Lymphatic Hematologic/Lymphatic: Denies anemia Allergic/Immunologic Allergic/Immunologic: Denies seasonal rhinorrhea Risk Stratification Risk Stratification Applicable: Yes Age >/= 65: No >/= 3 CAD Risk Factors (HTN, HLD, DM, family hx of CAD, or current smoker): Yes Aspirin Use in the Past 7 Days: Yes Severe Angina (>/= episodes in 24 hours): No EKG ST Changes >/= 0.5mm: No Positive Cardiac Marker: No PRIMITIVO Risk Stratification Score: 2 PRIMITIVO % Risk: 8% Risk Cardiology Labs/Tests Rhythm: EKG: ECHO: Stress Test: Cardiac Cath: PCI: CT Surgery: Holter monitor: EPS: PPM: CXR: Chest CT Scan:
--- NOTE | 2023-06-17 16:53 | CL.D_ITS ---
Patient Name: MADINA ROBERTS Study Date: 06/17/2023 Performing: Garth Angeles MD Ht: 70 inches 177.8 cm : 1965 Wt: 250.3 lbs 113.4 kg Age: 58 Gender: male BSA: 2.29 PROCEDURE(S) PERFORMED [id number])[facility] CLINICAL PROFILE AND INDICATIONS Indications: Suspected CAD Heart Failure: None Stress/Imaging Date: 06/17/23Stress Test with SPECT MPI: Negative CAD Presentations: Symptom unlikely to be ischemic. CONCLUSIONS Coronary disease with previously placed stent in the diagonal vessel noted to be patent. Other vessels are patent. RECOMMENDATIONS Medical therapy DESCRIPTION OF PROCEDURE The patient arrived to the procedure lab. The risks and benefits of the procedure as well as a full description of our services here and current unavailability of surgical backup were fully explained to the patient and/or their significant other prior to the catheterization. The Timeout was completed, verifying the correct patient and procedure. The patient's procedural site was prepped and draped in the usual fashion. Local anesthetic was given subcutaneously to right radial region with Lidocaine 2%. Using a modified Seldinger technique, arterial access was obtained via the right radial artery, a 6Fr sheath was inserted. Left Coronary Artery selective angiography was performed in multiple views using a 5 Fr. 4.0 Grady catheter.The arterial sheath was pulled and a TR Band was applied for hemostasis CORONARY ANGIOGRAPHY DOMINANCE: Right Dominant LEFT HEART ASSESSMENT Left Ventricular Ejection Fraction: by Echo 60 % Normal LV wall motion Normal Left Ventricular systolic function LEFT MAIN: Angiographically normal LEFT ANTERIOR DESCENDING ARTERY: Mild luminal irregularities DIAGONAL 1: Proximal - Previously placed stent is patent CIRCUMFLEX ARTERY: Mild luminal irregularities RIGHT CORONARY ARTERY: Mild luminal irregularities COMPLICATIONS No Complications PROCEDURE MEDICATIONS Versed 1 mg IV Fentanyl 50 mcg IV Versed 1 mg IV Oxygen: 2 L/min via nasal cannula Heparin given IA 06/17/2023 13:17:28 SUMMARY OF HEMODYNAMIC DATA Time AIR REST ECG 10:14:01 AO 125/78 (100) SA 13:17:51 Signed By Garth Angeles MD On 06/17/2023 16:52:21 Garth Angeles MD
[2023-06-17 17:09] LABS: Bedside Glucose 126 mg/dL (74-106)
== END 2023-06-17 14:55 | disposition home or self-care (01) ==
PROVIDERS: PCP Family Medicine; Referring Provider Internal Medicine Cardiovascular Disease; Visit Provider Internal Medicine Cardiovascular Disease
DX: I25.10 Atherosclerotic heart disease of native coronary artery without angina pectoris (principal); R55 Syncope and collapse; Z95.5 Presence of coronary angioplasty implant and graft; I10 Essential (primary) hypertension; E78.5 Hyperlipidemia, unspecified; Z79.899 Other long term (current) drug therapy
CPT/HCPCS: 78452; 82962; 93017; 93454; 99152; A9500; J7040; Q9967; A4216; C1769; C1894

== ENCOUNTER → 2023-08-04 | Outpatient (CLI) | payer OTHER, SELFPAY ==
[2023-05-07 07:31] VITALS: BMI 38.9
--- NOTE | 2023-08-04 07:55 | RAD_ITS ---
EXAMINATION: Air contrast esophagram and UPPER GI SERIES INDICATION: Male, 58 years dysphagia. FLUOROSCOPY TIME (if supplied): (1:42) minutes/seconds. 29 images were obtained. TECHNIQUE: Radiographic and fluoroscopic images of the distal esophagus, stomach, and proximal small intestine were obtained following the oral ingestion of barium. COMPARISON: None. FINDINGS: There is no evidence for organomegaly, abnormal calcifications, or abnormal bowel gas pattern. The psoas margins and flank stripes are normal. The visualized osseous structures are normal. The mucosa of the esophagus, stomach and duodenum is normal in appearance without evidence for stricture, ulceration, mass or diverticulum. There is no evidence for hiatal hernia or gastroesophageal reflux. The patient ingested a 12 mm tablet of barium. There was temporary holdup of the tablet in the posterior oropharynx. The stomach and duodenum are unremarkable. RAD/Upper GI w/BA Swallow IMPRESSION: 1. Normal upper gastrointestinal study. Electronically Signed: Kyree Green MD at 13:20 EST ,
== END | disposition home or self-care (01) ==
PROVIDERS: PCP Family Medicine; Referring Provider Family Medicine; Visit Provider Family Medicine
DX: R13.14 Dysphagia, pharyngoesophageal phase (principal)
CPT/HCPCS: 74246

== ENCOUNTER 2024-09-11 12:10 | Emergency (ER) | payer OTHER, SELFPAY ==
[2023-05-07 07:31] VITALS: BMI 38.9
[2024-09-11 12:11] VITALS: BP 133/82; PULSE 63; RESP 18; TEMP 36.2; O2SAT 100; BMI 38.4
[2024-09-11] MEDS: Lidocaine 1% (20 ml mdv) 20 ML Vial 10 ML INFILT (13:45)
--- NOTE | 2024-09-11 14:15 | EDS_ITS ---
HPI History of Present Illness Chief Complaint: Wound Narrative Narrative: Patient is a 59-year-old male with a past medical history of CAD status post stent on Plavix, hyperlipidemia, diabetes, hypertension who presented to the emerged part with a chief complaint of pain and swelling on the left side of his abdomen. He states that he has a bump on the area for approximately 9 years that was dime size he states that since Wednesday the area has increased significantly and noted that has been increasingly painful with surrounding redness therefore he came here for the valuation management. Patient denies any injury or trauma otherwise. [facility] Medical History Non-STEMI (non-ST elevated myocardial infarction) Atherosclerotic heart disease of [place] coronary artery without angina pectoris (01/25/23) ACS (acute coronary syndrome) Elevated troponin History of stress test Kidney stones Migraines Hyperlipemia Diabetes Irregular heart beat Psoriasis High blood pressure Home Medications ?Medication ?Instructions ?Recorded ?Last Taken ?Type cholecalciferol (vitamin D3) 25 25 mcg PO DAILY 02/15/23 Unknown History mcg (1,000 unit) capsule multivitamin (Daily Multi-Vitamin 1 tab PO DAILY 02/15/23 Unknown History tablet) metoprolol succinate 25 mg 25 mg PO DAILY #90 tabs 06/22/23 Unknown Rx tablet,extended release 24 hr amlodipine 5 mg tablet 5 mg PO DAILY #90 tabs 12/14/23 Unknown Rx aspirin 81 mg tablet,delayed 81 mg PO BREAKFAST #90 tabs 12/14/23 Unknown Rx release clopidogrel 75 mg tablet 75 mg PO DAILY #90 tabs 12/14/23 Unknown Rx lisinopril 2.5 mg tablet 2.5 mg PO DAILY #90 tabs 12/14/23 Unknown Rx pravastatin 40 mg tablet 40 mg PO QHS #90 tabs 12/14/23 Unknown Rx calcipotriene 0.005 % topical 1 applic topical BID 08/17/24 Unknown History ointment doxycycline hyclate 100 mg capsule 100 mg PO BID 7 days #14 caps 09/11/24 Unknown Rx Allergy/AdvReac Type Severity Reaction Status Date / Time codeine Allergy Nausea/vomi Verified 09/11/24 12:11 ting atorvastatin (From Lipitor) AdvReac stiff Verified 09/11/24 12:11 joints nitroglycerin AdvReac Low blood Verified 09/11/24 12:11 pressure Family History Mother COPD (chronic obstructive pulmonary disease) Glaucoma Diabetes Father Myocardial infarction Surgical History History of coronary artery stent placement Stented coronary artery (01/25/23) History of cholecystectomy Social History Smoking Status: Never smoker alcohol intake: never substance use type: does not use caffeine: Yes Type: coffee Number of servings: 2 ROS ROS ED ROS Narrative constitutional: Denies fevers, chills, headaches, lightness, dizziness Eyes: Denies change in vision double vision blurry vision Cardiovascular: Denies chest pain or palpitations Respiratory: Denies shortness of breath Abdomen: Complains of a left-sided abdominal discomfort and redness and swelling as noted above : Denies any urinary symptoms Neurological: Denies numbness, wheeze, tingling Musculoskeletal: Denies back pain EXAM Physical Exam Narrative Exam Narrative: General: Patient lying in bed rest comfortably did not appear to be in acute distress Head: Atraumatic, normocephalic Eyes: PERRL bilaterally, EOMI bilaterally, no conjunctival injection noted Neck: Soft, supple, trachea midline Cardiovascular: Regular rate and rhythm no murmurs gallops rubs noted Respiratory: Clear to auscultation bilaterally Abdomen: Soft, nondistended, nontender to palpation, bowel sounds present x 4 Extremities: +5/5 strength noted in the bilateral upper and lower extremities, radial pulses +2/4 in the bilateral extremities Neurological: Patient follow commands knew that he was at [facility] year is 2024 Skin: Patient has area of fluctuance with surrounding erythema noted on the left lateral upper abdomen Const Vital Signs: 09/11/24 12:11 Temperature 97.1 F L Temperature Source Temporal Pulse Rate 63 Respiratory Rate 18 Blood Pressure 133/82 H Blood Pressure Mean 99 Pulse Ox 100 Oxygen Delivery Method Room Air MDM MDM MDM Narrative Medical decision making narrative: Patient is a 59-year-old male who presents to the emergency department chief complaint of left abdominal swelling and redness with pain. The differential diagnose includes but not limited to cellulitis, abscess, cyst. Did a bedside ultrasound and there appears to be an abscess in this region. Patient will have incision and drainage performed here. Incision and drainage was performed patient had significant amount of purulent material expressed. He will be placed on doxycycline. He is advised to keep a close eye on his blood sugar keep a close eye on surrounding redness. He should return with worsening symptoms despite being on antibiotics otherwise he can follow-up with his primary care physician outpatient setting. He is agreeable this plan he would like to go home at this point time all question concerns answered he is discharged home in stable condition. Procedure Timeout protocol was performed prior to initiating procedure. The area was prepped and draped in the usual, sterile manner. The site was anesthetized with 1% lidocaine without epinephrine total of 2 cc. A linear incision along the local skin lines were made and the purulent material expressed. The abscess was explored thoroughly and sequestered pockets were opened. Bleeding was minimal. Packing none Follow-up: The patient tolerated procedure well without complications. Standard postprocedure care is explained and return precautions were given. Discharge Plan Triage Chief Complaint: Wound ED Provider: Tino Morrison Dx/Rx/DC Orders Clinical Impression: Abscess Prescriptions: New doxycycline hyclate 100 mg capsule 100 mg PO BID 7 Days Qty: 14 0RF No Action cholecalciferol (vitamin D3) 25 mcg (1,000 unit) capsule 25 mcg PO DAILY multivitamin [Daily Multi-Vitamin] Tablet 1 tab PO DAILY calcipotriene 0.005 % ointment 1 applic topical BID metoprolol succinate 25 mg tablet extended release 24 hr 25 mg PO DAILY Qty: 90 3RF aspirin 81 mg tablet,delayed release (DR/EC) 81 mg PO BREAKFAST Qty: 90 3RF amlodipine 5 mg tablet 5 mg PO DAILY Qty: 90 3RF lisinopril 2.5 mg tablet 2.5 mg PO DAILY Qty: 90 3RF pravastatin 40 mg tablet 40 mg PO QHS Qty: 90 3RF clopidogrel 75 mg tablet 75 mg PO DAILY Qty: 90 3RF Primary Care Provider: Kareem Reddy Referrals: Kareem Reddy MD [Primary Care Provider] - Activity Restrictions/Additional Instructions: Take antibiotics as prescribed. Return for worsening surrounding redness more purulent discharge while on antibiotics. Follow-up your primary care physician outpatient setting. Follow-up on the culture results of the abscess that was sent to the pharmacy with your primary care physician Print Language: Portuguese Disposition Disposition: Home, Self Care
[2024-09-11 14:42] VITALS: BP 130/74; PULSE 69; RESP 16; O2SAT 98
== END 2024-09-11 14:43 | disposition home or self-care (01) ==
PROVIDERS: Emergency Provider Emergency Medicine; PCP Family Medicine; Visit Provider Emergency Medicine
DX: L02.211 Cutaneous abscess of abdominal wall (principal); E11.9 Type 2 diabetes mellitus without complications; I10 Essential (primary) hypertension; I25.2 Old myocardial infarction; I25.10 Atherosclerotic heart disease of native coronary artery without angina pectoris; E78.5 Hyperlipidemia, unspecified; L40.9 Psoriasis, unspecified; Z95.5 Presence of coronary angioplasty implant and graft; Z90.49 Acquired absence of other specified parts of digestive tract; Z79.02 Long term (current) use of antithrombotics/antiplatelets; Z79.82 Long term (current) use of aspirin; Z79.899 Other long term (current) drug therapy
CPT/HCPCS: 10060; 87070; 87205; 99282